=== PATIENT | female | born 1965 | race Caucasian/White ===

== ENCOUNTER 2017-06-29 16:35 | Inpatient (IN) | payer MEDICAID ==
[~2017-06-29] VITALS: Ht 182.9 cm; Wt 110.2 kg
[~2017-06-29 16:35] MED LIST: ACET-3068 PO; ACET-75; ALBU6.7H INH; AMLO5TAB69; ASPI-1265 PO; ATOR10TA87 PO; CARV-50 PO; ESOM40CA PO; FURO40TA4 PO; GABA-530 PO; HUM10VIA; LANTUS SQ; NIFE90TA44 PO; NITR0.4T51 SL; ONDA4TAB11 PO; PROM25TA14 PO; SIME80TA5 PO
[2017-06-29] MEDS ORDERED: normal saline 1000ML IV soln IVB ONE (16:50)
[2017-06-29] MEDS ORDERED: ondansetron/PF 4mg/2ml inj IV ONE (16:50)
[2017-06-29] MEDS ORDERED: acetaminophen 325mg tablet PO ONE (16:55)
[2017-06-29 18:03] LABS: BASOPHILS % (AUTO) 0.6 % (0-1); EOSINOPHILS # (AUTO) 0.2 X10'3 (0-0.9); EOSINOPHILS % (AUTO) 2.6 % (0-6); HEMATOCRIT 26.3 % (35.0-45.0); HEMOGLOBIN 8.5 g/dl (12.0-16.0); LYMPHOCYTES # (AUTO) 1.1 X10'3 (1.1-4.8); LYMPHOCYTES % (AUTO) 14.8 % (21-51); MEAN CORPUSCULAR HEMOGLOBIN 26.5 PG (27.0-31.0); MEAN CORPUSCULAR HGB CONC 32.4 % (33.0-36.5); MEAN CORPUSCULAR VOLUME 81.9 FL (78-98); MEAN PLATELET VOLUME 6.7 FL (7.4-10.4); MONOCYTES # (AUTO) 0.5 X10'3 (0-0.9); MONOCYTES % (AUTO) 6.8 % (2-12); NEUTROPHILS # (AUTO) 5.4 X10'3 (1.8-7.7); NEUTROPHILS % (AUTO) 75.2 % (42-75); PLATELET COUNT 529 X10'3 (140-440); RED BLOOD COUNT 3.21 X10'6 (4.20-5.60); RED CELL DISTRIBUTION WIDTH 15.7 % (11.5-14.5); WHITE BLOOD COUNT 7.2 X10'3 (4.5-11.0)
[2017-06-29 18:12] LABS: CLARITY,URINE TURBID (Clear); COLOR,URINE YELLOW (Yellow); GLUCOSE, URINE NEGATIVE (Neg); KETONES,URINE NEGATIVE (Neg); LEUKOCYTE ESTERASE ,URINE LARGE (Neg); NITRITES, URINE NEGATIVE (Neg); OCCULT BLOOD,URINE MODERATE (Neg); PROTEIN,URINE >=300 mg/dl (Neg); UA COLLECTION TYPE STRAIGHT CATH; UROBILINOGEN,URINE 0.2 E.U/dL (0.2-1.0)
[2017-06-29 18:22] LABS: ALANINE AMINOTRANSFERASE 13 U/L (12-78); ALBUMIN 1.4 G/DL (3.4-5.0); ALBUMIN/GLOBULIN RATIO 0.3 (1.1-1.5); ALKALINE PHOSPHATASE 98 IU/L (46-116); ANION GAP 15 (8-16); ASPARTATE AMINO TRANSFERASE 9 U/L (10-37); BILIRUBIN,TOTAL 0.3 MG/DL (0.1-1.0); BLOOD UREA NITROGEN 42 MG/DL (7-18); BUN/CREATININE RATIO 3.6 (6.6-38.0); CALCIUM 7.6 MG/DL (8.5-10.1); CHLORIDE 102 MMOL/L (99-107); CREATININE 11.54 MG/DL (0.40-0.90); GLUCOSE 179 MG/DL (70-104); LIPASE 50 U/L (73-393); POTASSIUM 3.2 MMOL/L (3.5-5.1); SODIUM 143 MMOL/L (135-145); TOTAL CARBON DIOXIDE 25.7 MMOL/L (24-32); TOTAL PROTEIN 5.6 G/DL (6.4-8.2); TROPONIN I 0.04 NG/ML (0.0-0.05); eGFR 3 ML/MIN
[2017-06-29 18:27] LABS: BACTERIA,URINE 3+ /HPF (Neg); MUCUS STRANDS NONE SEEN /LPF (Neg); SQUAMOUS EPITHELIAL CELL,UR FEW /LPF (FEW); WBC,URINE TNTC /HPF (0-4)
[2017-06-29] MEDS: levoFLOXACIN-Levaquin 500mg/D5 100 ML IV ONE ×2 (18:47→20:58)
[2017-06-29] MEDS ORDERED: atorvastatin 10mg tablet PO SCH (21:00)
[2017-06-30] VITALS: BP 140/77
[2017-06-30] MEDS: gabapentin 100mg capsule PO SCH ×2 (00:55→20:24)
[2017-06-30] MEDS ORDERED: DIFICID 200 MG PO SCH (01:25)
[2017-06-30] MEDS: aspirin 81mg tab.chew PO SCH ×2 (03:24→20:23)
[2017-06-30 05:20] LABS: BASOPHILS # (AUTO) 0.1 X10'3 (0-0.2); BASOPHILS % (AUTO) 0.8 % (0-1); EOSINOPHILS # (AUTO) 0.3 X10'3 (0-0.9); EOSINOPHILS % (AUTO) 3.6 % (0-6); HEMATOCRIT 25.6 % (35.0-45.0); HEMOGLOBIN 8.5 g/dl (12.0-16.0); LYMPHOCYTES # (AUTO) 0.6 X10'3 (1.1-4.8); LYMPHOCYTES % (AUTO) 8.1 % (21-51); MEAN CORPUSCULAR HEMOGLOBIN 27.2 PG (27.0-31.0); MEAN CORPUSCULAR HGB CONC 33.4 % (33.0-36.5); MEAN CORPUSCULAR VOLUME 81.6 FL (78-98); MEAN PLATELET VOLUME 6.7 FL (7.4-10.4); MONOCYTES # (AUTO) 0.5 X10'3 (0-0.9); MONOCYTES % (AUTO) 6.8 % (2-12); NEUTROPHILS # (AUTO) 6.1 X10'3 (1.8-7.7); NEUTROPHILS % (AUTO) 80.7 % (42-75); PLATELET COUNT 471 X10'3 (140-440); RED BLOOD COUNT 3.13 X10'6 (4.20-5.60); RED CELL DISTRIBUTION WIDTH 15.5 % (11.5-14.5); WHITE BLOOD COUNT 7.6 X10'3 (4.5-11.0)
[2017-06-30 05:42] LABS: ALANINE AMINOTRANSFERASE 13 U/L (12-78); ALBUMIN 1.3 G/DL (3.4-5.0); ALBUMIN/GLOBULIN RATIO 0.3 (1.1-1.5); ALKALINE PHOSPHATASE 93 IU/L (46-116); ANION GAP 15 (8-16); ASPARTATE AMINO TRANSFERASE 9 U/L (10-37); BILIRUBIN,TOTAL 0.3 MG/DL (0.1-1.0); BLOOD UREA NITROGEN 40 MG/DL (7-18); BUN/CREATININE RATIO 3.6 (6.6-38.0); CALCIUM 7.5 MG/DL (8.5-10.1); CHLORIDE 103 MMOL/L (99-107); CREATININE 11.18 MG/DL (0.40-0.90); GLUCOSE 220 MG/DL (70-104); MAGNESIUM 1.5 MG/DL (1.5-2.4); PHOSPHORUS 7.8 MG/DL (2.3-4.5); SODIUM 142 MMOL/L (135-145); TOTAL CARBON DIOXIDE 24.3 MMOL/L (24-32); TOTAL PROTEIN 5.3 G/DL (6.4-8.2); eGFR 4 ML/MIN
[2017-06-30 08:00] VITALS: BP 150/70
[2017-06-30] MEDS ORDERED: insulin NPH/REG insulin (NovoLIN 70/30) 10ml vial SQ SCH (08:00)
[2017-06-30] MEDS: insulin glargine (Lantus) pen - multi-dose SQ SCH ×2 (08:00→20:00)
[2017-06-30] MEDS: insulin NPH/REG insulin (NovoLIN 70/30) 10ml vial SQ SCH (08:00)
[2017-06-30] MEDS ORDERED: aspirin 81mg tab.chew PO SCH (08:00)
[2017-06-30 11:00] VITALS: BP 145/63
[2017-06-30] MEDS: lactobacillus rhamnosus 10,000 MMU CELLS/CAPSULE PO SCH ×2 (11:01→20:24)
[2017-06-30] MEDS: pantoprazole 40mg Tablet.DR PO SCH (11:01)
[2017-06-30] MEDS: furosemide 40mg tablet PO SCH ×2 (11:02→20:00)
[2017-06-30] MEDS: DIFICID 200 MG PO SCH ×2 (11:02→20:23)
[2017-06-30] MEDS: carVEDilol 12.5mg tablet PO SCH ×2 (11:03→20:25)
[2017-06-30] MEDS: atorvastatin 10mg tablet PO SCH (11:17)
[2017-06-30] MEDS: NIFEdipine XL 30mg tablet PO SCH (11:17)
[2017-06-30] MEDS: heparin, porcine 5000 units/ml vial SQ SCH ×2 (11:19→20:28)
[2017-06-30] MEDS: ondansetron/PF 4mg/2ml inj IV PRN ×2 (13:08→20:26)
[2017-06-30 18:00] VITALS: BP 142/70
[2017-06-30] MEDS: acetaminophen w/codeine (30MG) #3 tablet PO PRN (20:24)
[2017-07-01] VITALS: BP 141/69
[2017-07-01] MEDS: ondansetron/PF 4mg/2ml inj IV PRN ×3 (03:55→20:14)
[2017-07-01] MEDS: acetaminophen w/codeine (30MG) #3 tablet PO PRN ×3 (03:55→20:30)
[2017-07-01 05:06] LABS: BASOPHILS % (AUTO) 0.4 % (0-1); EOSINOPHILS # (AUTO) 0.2 X10'3 (0-0.9); EOSINOPHILS % (AUTO) 2.7 % (0-6); HEMATOCRIT 24.7 % (35.0-45.0); HEMOGLOBIN 8.1 g/dl (12.0-16.0); LYMPHOCYTES # (AUTO) 0.8 X10'3 (1.1-4.8); LYMPHOCYTES % (AUTO) 12.1 % (21-51); MEAN CORPUSCULAR HEMOGLOBIN 26.8 PG (27.0-31.0); MEAN CORPUSCULAR HGB CONC 32.7 % (33.0-36.5); MEAN CORPUSCULAR VOLUME 82.1 FL (78-98); MEAN PLATELET VOLUME 6.6 FL (7.4-10.4); MONOCYTES # (AUTO) 0.7 X10'3 (0-0.9); MONOCYTES % (AUTO) 9.9 % (2-12); NEUTROPHILS # (AUTO) 5.2 X10'3 (1.8-7.7); NEUTROPHILS % (AUTO) 74.9 % (42-75); PLATELET COUNT 401 X10'3 (140-440); RED BLOOD COUNT 3.01 X10'6 (4.20-5.60); RED CELL DISTRIBUTION WIDTH 15.6 % (11.5-14.5)
[2017-07-01 05:29] LABS: ALANINE AMINOTRANSFERASE 14 U/L (12-78); ALBUMIN 1.2 G/DL (3.4-5.0); ALBUMIN/GLOBULIN RATIO 0.3 (1.1-1.5); ALKALINE PHOSPHATASE 94 IU/L (46-116); ANION GAP 15 (8-16); ASPARTATE AMINO TRANSFERASE 11 U/L (10-37); BILIRUBIN,TOTAL 0.3 MG/DL (0.1-1.0); BLOOD UREA NITROGEN 36 MG/DL (7-18); BUN/CREATININE RATIO 3.5 (6.6-38.0); CALCIUM 7.5 MG/DL (8.5-10.1); CHLORIDE 101 MMOL/L (99-107); CREATININE 10.23 MG/DL (0.40-0.90); GLUCOSE 250 MG/DL (70-104); MAGNESIUM 1.5 MG/DL (1.5-2.4); PHOSPHORUS 7.1 MG/DL (2.3-4.5); SODIUM 141 MMOL/L (135-145); TOTAL PROTEIN 5.2 G/DL (6.4-8.2); eGFR 4 ML/MIN
[2017-07-01 05:41] LABS: POTASSIUM 2.7 MMOL/L (3.5-5.1)
[2017-07-01 07:47] VITALS: BP 143/63
[2017-07-01] MEDS: insulin glargine (Lantus) pen - multi-dose SQ SCH ×2 (08:00→20:00)
[2017-07-01] MEDS: insulin NPH/REG insulin (NovoLIN 70/30) 10ml vial SQ SCH (08:00)
[2017-07-01] MEDS ORDERED: levoFLOXACIN-Levaquin 250mg/D5 50 ML IV SCH (08:00)
[2017-07-01] MEDS: furosemide 40mg tablet PO SCH ×2 (08:31→20:00)
[2017-07-01] MEDS: pantoprazole 40mg Tablet.DR PO SCH (08:31)
[2017-07-01] MEDS: potassium Cl 20 mEq SR tablet PO SCH ×2 (08:31→20:12)
[2017-07-01] MEDS: lactobacillus rhamnosus 10,000 MMU CELLS/CAPSULE PO SCH ×2 (08:31→20:19)
[2017-07-01] MEDS: atorvastatin 10mg tablet PO SCH (08:31)
[2017-07-01] MEDS: carVEDilol 12.5mg tablet PO SCH ×2 (08:31→20:00)
[2017-07-01] MEDS: heparin, porcine 5000 units/ml vial SQ SCH ×2 (08:32→20:21)
[2017-07-01] MEDS: NIFEdipine XL 30mg tablet PO SCH (08:38)
[2017-07-01] MEDS: DIFICID 200 MG PO SCH ×2 (08:38→20:19)
[2017-07-01 13:28] VITALS: BP 117/59
[2017-07-01 18:00] VITALS: BP 100/52
[2017-07-01] MEDS: aspirin 81mg tab.chew PO SCH (20:18)
[2017-07-01] MEDS: gabapentin 100mg capsule PO SCH (20:19)
[2017-07-02] VITALS: BP 120/64
[2017-07-02] MEDS: albuterol 2.5 MG/3 ML nebule NEB PRN (02:17)
[2017-07-02] MEDS: ondansetron/PF 4mg/2ml inj IV PRN ×3 (04:20→20:56)
[2017-07-02 04:44] LABS: BASOPHILS % (AUTO) 0.6 % (0-1); EOSINOPHILS # (AUTO) 0.2 X10'3 (0-0.9); EOSINOPHILS % (AUTO) 3.1 % (0-6); HEMATOCRIT 25.6 % (35.0-45.0); HEMOGLOBIN 8.5 g/dl (12.0-16.0); LYMPHOCYTES # (AUTO) 0.9 X10'3 (1.1-4.8); LYMPHOCYTES % (AUTO) 14.8 % (21-51); MEAN CORPUSCULAR HEMOGLOBIN 26.7 PG (27.0-31.0); MEAN CORPUSCULAR HGB CONC 33.1 % (33.0-36.5); MEAN CORPUSCULAR VOLUME 80.6 FL (78-98); MEAN PLATELET VOLUME 6.7 FL (7.4-10.4); MONOCYTES # (AUTO) 0.6 X10'3 (0-0.9); MONOCYTES % (AUTO) 9.1 % (2-12); NEUTROPHILS # (AUTO) 4.5 X10'3 (1.8-7.7); NEUTROPHILS % (AUTO) 72.4 % (42-75); PLATELET COUNT 397 X10'3 (140-440); RED BLOOD COUNT 3.18 X10'6 (4.20-5.60); RED CELL DISTRIBUTION WIDTH 14.9 % (11.5-14.5); WHITE BLOOD COUNT 6.2 X10'3 (4.5-11.0)
[2017-07-02 05:14] LABS: ALANINE AMINOTRANSFERASE 14 U/L (12-78); ALBUMIN 1.3 G/DL (3.4-5.0); ALBUMIN/GLOBULIN RATIO 0.3 (1.1-1.5); ALKALINE PHOSPHATASE 95 IU/L (46-116); ANION GAP 13 (8-16); ASPARTATE AMINO TRANSFERASE 10 U/L (10-37); BILIRUBIN,TOTAL 0.2 MG/DL (0.1-1.0); BLOOD UREA NITROGEN 36 MG/DL (7-18); BUN/CREATININE RATIO 3.8 (6.6-38.0); CALCIUM 7.7 MG/DL (8.5-10.1); CHLORIDE 101 MMOL/L (99-107); CREATININE 9.55 MG/DL (0.40-0.90); GLUCOSE 281 MG/DL (70-104); MAGNESIUM 1.4 MG/DL (1.5-2.4); PHOSPHORUS 6.8 MG/DL (2.3-4.5); POTASSIUM 3.3 MMOL/L (3.5-5.1); SODIUM 139 MMOL/L (135-145); TOTAL PROTEIN 5.4 G/DL (6.4-8.2); eGFR 4 ML/MIN
[2017-07-02] MEDS: pantoprazole 40mg Tablet.DR PO SCH (07:30)
[2017-07-02] MEDS: insulin glargine (Lantus) pen - multi-dose SQ SCH ×2 (08:00→20:00)
[2017-07-02] MEDS: furosemide 40mg tablet PO SCH ×2 (08:00→20:00)
[2017-07-02] MEDS: insulin NPH/REG insulin (NovoLIN 70/30) 10ml vial SQ SCH (08:54)
[2017-07-02] MEDS: heparin, porcine 5000 units/ml vial SQ SCH ×2 (08:54→20:54)
[2017-07-02 09:04] VITALS: BP 131/60
[2017-07-02] MEDS: lactobacillus rhamnosus 10,000 MMU CELLS/CAPSULE PO SCH ×2 (11:31→20:53)
[2017-07-02] MEDS: carVEDilol 12.5mg tablet PO SCH ×2 (11:31→20:52)
[2017-07-02] MEDS: DIFICID 200 MG PO SCH ×2 (11:31→20:54)
[2017-07-02] MEDS: atorvastatin 10mg tablet PO SCH (11:32)
[2017-07-02] MEDS: NIFEdipine XL 30mg tablet PO SCH (11:32)
[2017-07-02 12:04] VITALS: BP 154/75
[2017-07-02 18:00] VITALS: BP 112/55
[2017-07-02 18:18] LABS: LYMPHOCYTES,BODY FLUID 40 %; MONOCYTES,BODY FLUID 41 %; NEUTROPHILS,BODY FLUID 19 %
[2017-07-02 18:33] LABS: BF MESOTHELIAL CELLS FEW; BF RBC COUNT 5 /CU MM; BF WBC COUNT 29 /CU MM (0-1000); BFAPPEAR CLEAR; BFCOLOR COLORLESS; BFVOLUME 48 ML
[2017-07-02] MEDS: gabapentin 100mg capsule PO SCH (20:53)
[2017-07-02] MEDS: aspirin 81mg tab.chew PO SCH (20:56)
[2017-07-02] MEDS: acetaminophen w/codeine (30MG) #3 tablet PO PRN (20:57)
[2017-07-03] VITALS: BP 147/54
[2017-07-03 06:45] LABS: BASOPHILS % (AUTO) 0.5 % (0-1); EOSINOPHILS # (AUTO) 0.2 X10'3 (0-0.9); EOSINOPHILS % (AUTO) 4.1 % (0-6); HEMATOCRIT 28.5 % (35.0-45.0); HEMOGLOBIN 9.5 g/dl (12.0-16.0); LYMPHOCYTES # (AUTO) 0.8 X10'3 (1.1-4.8); LYMPHOCYTES % (AUTO) 15.4 % (21-51); MEAN CORPUSCULAR HEMOGLOBIN 26.8 PG (27.0-31.0); MEAN CORPUSCULAR HGB CONC 33.2 % (33.0-36.5); MEAN CORPUSCULAR VOLUME 80.7 FL (78-98); MEAN PLATELET VOLUME 6.8 FL (7.4-10.4); MONOCYTES # (AUTO) 0.4 X10'3 (0-0.9); MONOCYTES % (AUTO) 8.3 % (2-12); NEUTROPHILS # (AUTO) 3.8 X10'3 (1.8-7.7); NEUTROPHILS % (AUTO) 71.7 % (42-75); PLATELET COUNT 385 X10'3 (140-440); RED BLOOD COUNT 3.54 X10'6 (4.20-5.60); RED CELL DISTRIBUTION WIDTH 15.3 % (11.5-14.5); WHITE BLOOD COUNT 5.3 X10'3 (4.5-11.0)
[2017-07-03 07:00] VITALS: BP 145/76
[2017-07-03 07:01] LABS: ALANINE AMINOTRANSFERASE 18 U/L (12-78); ALBUMIN 1.3 G/DL (3.4-5.0); ALBUMIN/GLOBULIN RATIO 0.3 (1.1-1.5); ALKALINE PHOSPHATASE 216 IU/L (46-116); ANION GAP 12 (8-16); ASPARTATE AMINO TRANSFERASE 17 U/L (10-37); BILIRUBIN,TOTAL 0.2 MG/DL (0.1-1.0); BLOOD UREA NITROGEN 36 MG/DL (7-18); CALCIUM 8.3 MG/DL (8.5-10.1); CHLORIDE 100 MMOL/L (99-107); CREATININE 8.99 MG/DL (0.40-0.90); GLUCOSE 196 MG/DL (70-104); MAGNESIUM 1.5 MG/DL (1.5-2.4); POTASSIUM 3.3 MMOL/L (3.5-5.1); SODIUM 138 MMOL/L (135-145); TOTAL CARBON DIOXIDE 26.4 MMOL/L (24-32); TOTAL PROTEIN 5.8 G/DL (6.4-8.2); eGFR 5 ML/MIN
[2017-07-03] MEDS: furosemide 40mg tablet PO SCH ×2 (08:00→19:53)
[2017-07-03] MEDS: insulin NPH/REG insulin (NovoLIN 70/30) 10ml vial SQ SCH (08:00)
[2017-07-03] MEDS: insulin glargine (Lantus) pen - multi-dose SQ SCH ×2 (08:00→20:00)
[2017-07-03] MEDS: atorvastatin 10mg tablet PO SCH (08:00)
[2017-07-03] MEDS: carVEDilol 12.5mg tablet PO SCH ×2 (08:00→19:51)
[2017-07-03] MEDS: ondansetron/PF 4mg/2ml inj IV PRN ×2 (09:33→18:00)
[2017-07-03] MEDS: NIFEdipine XL 30mg tablet PO SCH (09:34)
[2017-07-03] MEDS: DIFICID 200 MG PO SCH ×2 (09:37→19:51)
[2017-07-03] MEDS: heparin, porcine 5000 units/ml vial SQ SCH ×2 (09:37→19:51)
[2017-07-03] MEDS: lactobacillus rhamnosus 10,000 MMU CELLS/CAPSULE PO SCH ×2 (09:38→19:51)
[2017-07-03] MEDS: pantoprazole 40mg Tablet.DR PO SCH (09:38)
[2017-07-03 11:00] VITALS: BP 159/70
[2017-07-03] MEDS: acetaminophen w/codeine (30MG) #3 tablet PO PRN (12:45)
[2017-07-03 20:00] VITALS: BP 110/48
[2017-07-03] MEDS: gabapentin 100mg capsule PO SCH (21:35)
[2017-07-03] MEDS: aspirin 81mg tab.chew PO SCH (21:35)
[2017-07-04] VITALS: BP 141/63
[2017-07-04] MEDS: ondansetron/PF 4mg/2ml inj IV PRN ×2 (02:51→09:11)
[2017-07-04] MEDS: acetaminophen w/codeine (30MG) #3 tablet PO PRN (03:19)
[2017-07-04 06:05] LABS: BASOPHILS % (AUTO) 0.4 % (0-1); EOSINOPHILS # (AUTO) 0.2 X10'3 (0-0.9); EOSINOPHILS % (AUTO) 3.7 % (0-6); HEMATOCRIT 24.6 % (35.0-45.0); HEMOGLOBIN 8.1 g/dl (12.0-16.0); LYMPHOCYTES # (AUTO) 0.7 X10'3 (1.1-4.8); LYMPHOCYTES % (AUTO) 12.9 % (21-51); MEAN CORPUSCULAR HEMOGLOBIN 26.6 PG (27.0-31.0); MEAN CORPUSCULAR VOLUME 80.5 FL (78-98); MEAN PLATELET VOLUME 6.9 FL (7.4-10.4); MONOCYTES # (AUTO) 0.5 X10'3 (0-0.9); MONOCYTES % (AUTO) 10.2 % (2-12); NEUTROPHILS # (AUTO) 3.9 X10'3 (1.8-7.7); NEUTROPHILS % (AUTO) 72.8 % (42-75); PLATELET COUNT 335 X10'3 (140-440); RED BLOOD COUNT 3.06 X10'6 (4.20-5.60); RED CELL DISTRIBUTION WIDTH 14.9 % (11.5-14.5); WHITE BLOOD COUNT 5.4 X10'3 (4.5-11.0)
[2017-07-04 06:24] LABS: ALANINE AMINOTRANSFERASE 14 U/L (12-78); ALBUMIN 1.2 G/DL (3.4-5.0); ALBUMIN/GLOBULIN RATIO 0.3 (1.1-1.5); ALKALINE PHOSPHATASE 179 IU/L (46-116); ANION GAP 11 (8-16); ASPARTATE AMINO TRANSFERASE 11 U/L (10-37); BILIRUBIN,TOTAL 0.2 MG/DL (0.1-1.0); BLOOD UREA NITROGEN 33 MG/DL (7-18); BUN/CREATININE RATIO 3.8 (6.6-38.0); CHLORIDE 100 MMOL/L (99-107); CREATININE 8.79 MG/DL (0.40-0.90); GLUCOSE 192 MG/DL (70-104); MAGNESIUM 1.4 MG/DL (1.5-2.4); PHOSPHORUS 6.7 MG/DL (2.3-4.5); POTASSIUM 3.2 MMOL/L (3.5-5.1); SODIUM 138 MMOL/L (135-145); TOTAL CARBON DIOXIDE 26.7 MMOL/L (24-32); TOTAL PROTEIN 5.1 G/DL (6.4-8.2); eGFR 5 ML/MIN
[2017-07-04 07:30] VITALS: BP 136/64
[2017-07-04] MEDS: lactobacillus rhamnosus 10,000 MMU CELLS/CAPSULE PO SCH ×2 (08:00→20:04)
[2017-07-04] MEDS: insulin glargine (Lantus) pen - multi-dose SQ SCH ×2 (08:00→20:00)
[2017-07-04] MEDS: insulin NPH/REG insulin (NovoLIN 70/30) 10ml vial SQ SCH (08:00)
[2017-07-04] MEDS: furosemide 40mg tablet PO SCH ×2 (08:00→20:00)
[2017-07-04] MEDS: heparin, porcine 5000 units/ml vial SQ SCH ×2 (09:11→20:04)
[2017-07-04] MEDS: carVEDilol 12.5mg tablet PO SCH ×2 (09:12→20:00)
[2017-07-04] MEDS: pantoprazole 40mg Tablet.DR PO SCH (09:12)
[2017-07-04] MEDS: NIFEdipine XL 30mg tablet PO SCH (09:12)
[2017-07-04] MEDS: DIFICID 200 MG PO SCH ×2 (09:12→20:05)
[2017-07-04] MEDS: atorvastatin 10mg tablet PO SCH (09:12)
[2017-07-04 20:00] VITALS: BP 98/51
[2017-07-04] MEDS: gabapentin 100mg capsule PO SCH (21:30)
[2017-07-04] MEDS: aspirin 81mg tab.chew PO SCH (21:30)
[2017-07-05] VITALS: BP 130/76
[2017-07-05] MEDS: acetaminophen w/codeine (30MG) #3 tablet PO PRN (04:01)
[2017-07-05 06:00] VITALS: BP 136/76
[2017-07-05] MEDS: pantoprazole 40mg Tablet.DR PO SCH (07:30)
[2017-07-05] MEDS: furosemide 40mg tablet PO SCH ×2 (08:00→20:00)
[2017-07-05] MEDS: lactobacillus rhamnosus 10,000 MMU CELLS/CAPSULE PO SCH ×2 (08:00→20:21)
[2017-07-05] MEDS: insulin NPH/REG insulin (NovoLIN 70/30) 10ml vial SQ SCH (08:00)
[2017-07-05] MEDS: heparin, porcine 5000 units/ml vial SQ SCH ×2 (08:00→20:22)
[2017-07-05] MEDS: insulin glargine (Lantus) pen - multi-dose SQ SCH ×2 (08:00→20:00)
[2017-07-05] MEDS: atorvastatin 10mg tablet PO SCH (09:01)
[2017-07-05] MEDS: NIFEdipine XL 30mg tablet PO SCH (09:01)
[2017-07-05] MEDS: DIFICID 200 MG PO SCH ×2 (09:01→20:20)
[2017-07-05] MEDS: carVEDilol 12.5mg tablet PO SCH ×2 (09:01→20:21)
[2017-07-05 11:00] VITALS: BP 132/64
[2017-07-05] MEDS ORDERED: ondansetron 4mg rapidly disintigrating tab PO ONE (14:00)
[2017-07-05 14:38] LABS: BASOPHILS % (AUTO) 0.1 % (0-1); EOSINOPHILS # (AUTO) 0.2 X10'3 (0-0.9); HEMATOCRIT 24.9 % (35.0-45.0); HEMOGLOBIN 8.1 g/dl (12.0-16.0); LYMPHOCYTES # (AUTO) 0.6 X10'3 (1.1-4.8); LYMPHOCYTES % (AUTO) 11.8 % (21-51); MEAN CORPUSCULAR HEMOGLOBIN 26.3 PG (27.0-31.0); MEAN CORPUSCULAR HGB CONC 32.7 % (33.0-36.5); MEAN CORPUSCULAR VOLUME 80.5 FL (78-98); MEAN PLATELET VOLUME 7.3 FL (7.4-10.4); MONOCYTES # (AUTO) 0.5 X10'3 (0-0.9); MONOCYTES % (AUTO) 9.3 % (2-12); NEUTROPHILS # (AUTO) 3.9 X10'3 (1.8-7.7); NEUTROPHILS % (AUTO) 75.8 % (42-75); PLATELET COUNT 303 X10'3 (140-440); RED BLOOD COUNT 3.09 X10'6 (4.20-5.60); RED CELL DISTRIBUTION WIDTH 15.4 % (11.5-14.5); WHITE BLOOD COUNT 5.1 X10'3 (4.5-11.0)
[2017-07-05 14:52] LABS: ALANINE AMINOTRANSFERASE 13 U/L (12-78); ALBUMIN 1.2 G/DL (3.4-5.0); ALBUMIN/GLOBULIN RATIO 0.3 (1.1-1.5); ALKALINE PHOSPHATASE 160 IU/L (46-116); ANION GAP 11 (8-16); ASPARTATE AMINO TRANSFERASE 11 U/L (10-37); BILIRUBIN,TOTAL 0.2 MG/DL (0.1-1.0); BLOOD UREA NITROGEN 35 MG/DL (7-18); CALCIUM 7.7 MG/DL (8.5-10.1); CHLORIDE 98 MMOL/L (99-107); GLUCOSE 181 MG/DL (70-104); MAGNESIUM 1.5 MG/DL (1.5-2.4); POTASSIUM 3.2 MMOL/L (3.5-5.1); SODIUM 135 MMOL/L (135-145); TOTAL PROTEIN 5.1 G/DL (6.4-8.2); eGFR 5 ML/MIN
[2017-07-05] MEDS: ondansetron 4mg rapidly disintigrating tab PO PRN (17:27)
[2017-07-05 17:28] LABS: PHOSPHORUS 6.9 MG/DL (2.3-4.5)
[2017-07-05 20:00] VITALS: BP 129/55
[2017-07-05] MEDS: gabapentin 100mg capsule PO SCH (20:20)
[2017-07-05] MEDS: aspirin 81mg tab.chew PO SCH (20:21)
[2017-07-06] VITALS: BP 131/59
[2017-07-06] MEDS: acetaminophen w/codeine (30MG) #3 tablet PO PRN ×2 (05:44→20:52)
[2017-07-06] MEDS: ondansetron 4mg rapidly disintigrating tab PO PRN (05:44)
[2017-07-06] MEDS: lactobacillus rhamnosus 10,000 MMU CELLS/CAPSULE PO SCH ×2 (07:54→20:01)
[2017-07-06] MEDS: NIFEdipine XL 30mg tablet PO SCH (07:54)
[2017-07-06] MEDS: atorvastatin 10mg tablet PO SCH (07:54)
[2017-07-06] MEDS: pantoprazole 40mg Tablet.DR PO SCH (07:55)
[2017-07-06] MEDS: carVEDilol 12.5mg tablet PO SCH ×2 (07:55→20:01)
[2017-07-06] MEDS: heparin, porcine 5000 units/ml vial SQ SCH ×2 (07:57→20:01)
[2017-07-06] MEDS: insulin NPH/REG insulin (NovoLIN 70/30) 10ml vial SQ SCH (07:58)
[2017-07-06] MEDS: furosemide 40mg tablet PO SCH ×2 (07:58→20:02)
[2017-07-06] MEDS: insulin glargine (Lantus) pen - multi-dose SQ SCH ×2 (07:58→20:00)
[2017-07-06 08:00] VITALS: BP 153/76
[2017-07-06 11:00] VITALS: BP 103/44
[2017-07-06] MEDS: albuterol 2.5 MG/3 ML nebule NEB PRN (11:25)
[2017-07-06] MEDS ORDERED: potassium Cl 20 mEq SR tablet PO ONE (13:25)
[2017-07-06 20:00] VITALS: BP 127/62
[2017-07-06] MEDS: vancomcyin 250mg capsules PO SCH (20:02)
[2017-07-06] MEDS: aspirin 81mg tab.chew PO SCH (20:51)
[2017-07-06] MEDS: gabapentin 100mg capsule PO SCH (20:52)
[2017-07-07] VITALS: BP 114/53
[2017-07-07] MEDS: vancomcyin 250mg capsules PO SCH ×4 (02:19→20:53)
[2017-07-07] MEDS: furosemide 40mg tablet PO SCH ×2 (07:51→20:54)
[2017-07-07] MEDS: NIFEdipine XL 30mg tablet PO SCH (07:51)
[2017-07-07] MEDS: lactobacillus rhamnosus 10,000 MMU CELLS/CAPSULE PO SCH ×2 (07:51→20:53)
[2017-07-07] MEDS: pantoprazole 40mg Tablet.DR PO SCH (07:51)
[2017-07-07] MEDS: atorvastatin 10mg tablet PO SCH (07:51)
[2017-07-07] MEDS: carVEDilol 12.5mg tablet PO SCH ×2 (07:51→20:54)
[2017-07-07] MEDS: heparin, porcine 5000 units/ml vial SQ SCH ×2 (07:52→20:52)
[2017-07-07] MEDS: ondansetron 4mg rapidly disintigrating tab PO PRN (07:56)
[2017-07-07 08:00] VITALS: BP 145/68
[2017-07-07] MEDS: insulin NPH/REG insulin (NovoLIN 70/30) 10ml vial SQ SCH (08:00)
[2017-07-07] MEDS: insulin glargine (Lantus) pen - multi-dose SQ SCH ×2 (08:00→20:00)
[2017-07-07] MEDS: acetaminophen w/codeine (30MG) #3 tablet PO PRN (10:33)
[2017-07-07 12:19] VITALS: BP 115/52
[2017-07-07 20:00] VITALS: BP 122/78
[2017-07-07] MEDS: gabapentin 100mg capsule PO SCH (20:53)
[2017-07-07] MEDS: aspirin 81mg tab.chew PO SCH (20:54)
[2017-07-07 23:00] VITALS: BP 134/76
[2017-07-08] MEDS: ondansetron 4mg rapidly disintigrating tab PO PRN ×3 (01:30→20:24)
[2017-07-08] MEDS: acetaminophen w/codeine (30MG) #3 tablet PO PRN ×3 (01:30→20:26)
[2017-07-08] MEDS: vancomcyin 250mg capsules PO SCH ×4 (01:30→20:25)
[2017-07-08] MEDS: atorvastatin 10mg tablet PO SCH (07:19)
[2017-07-08] MEDS: pantoprazole 40mg Tablet.DR PO SCH (07:19)
[2017-07-08] MEDS: carVEDilol 12.5mg tablet PO SCH ×2 (07:19→20:26)
[2017-07-08] MEDS: lactobacillus rhamnosus 10,000 MMU CELLS/CAPSULE PO SCH ×2 (07:19→20:25)
[2017-07-08] MEDS: furosemide 40mg tablet PO SCH ×2 (07:19→20:25)
[2017-07-08] MEDS: heparin, porcine 5000 units/ml vial SQ SCH ×2 (07:20→20:00)
[2017-07-08] MEDS: NIFEdipine XL 30mg tablet PO SCH (07:20)
[2017-07-08 07:36] VITALS: BP 138/71
[2017-07-08] MEDS: insulin glargine (Lantus) pen - multi-dose SQ SCH ×2 (08:00→20:00)
[2017-07-08] MEDS: insulin NPH/REG insulin (NovoLIN 70/30) 10ml vial SQ SCH (08:00)
[2017-07-08 12:06] VITALS: BP 103/50
[2017-07-08] MEDS ORDERED: LIDOcaine 1% (10mg/ml) 2ml vial SQ ONE (19:45)
[2017-07-08] MEDS: gabapentin 100mg capsule PO SCH (20:26)
[2017-07-08] MEDS: aspirin 81mg tab.chew PO SCH (20:26)
[2017-07-09] MEDS: vancomcyin 250mg capsules PO SCH ×5 (01:27→20:42)
[2017-07-09] MEDS: ondansetron 4mg rapidly disintigrating tab PO PRN ×2 (02:38→15:31)
[2017-07-09] MEDS: acetaminophen w/codeine (30MG) #3 tablet PO PRN ×2 (02:39→15:31)
[2017-07-09 06:24] LABS: ALANINE AMINOTRANSFERASE 12 U/L (12-78); ALBUMIN 1.3 G/DL (3.4-5.0); ALBUMIN/GLOBULIN RATIO 0.3 (1.1-1.5); ALKALINE PHOSPHATASE 126 IU/L (46-116); ANION GAP 12 (8-16); ASPARTATE AMINO TRANSFERASE 11 U/L (10-37); BILIRUBIN,TOTAL 0.2 MG/DL (0.1-1.0); BLOOD UREA NITROGEN 39 MG/DL (7-18); BUN/CREATININE RATIO 4.4 (6.6-38.0); CALCIUM 8.1 MG/DL (8.5-10.1); CHLORIDE 98 MMOL/L (99-107); CREATININE 8.88 MG/DL (0.40-0.90); GLUCOSE 140 MG/DL (70-104); POTASSIUM 3.8 MMOL/L (3.5-5.1); SODIUM 135 MMOL/L (135-145); TOTAL CARBON DIOXIDE 25.3 MMOL/L (24-32); TOTAL PROTEIN 5.1 G/DL (6.4-8.2); eGFR 5 ML/MIN
[2017-07-09] MEDS: atorvastatin 10mg tablet PO SCH (07:40)
[2017-07-09] MEDS: NIFEdipine XL 30mg tablet PO SCH (07:40)
[2017-07-09] MEDS: pantoprazole 40mg Tablet.DR PO SCH (07:40)
[2017-07-09] MEDS: furosemide 40mg tablet PO SCH ×2 (07:40→20:34)
[2017-07-09] MEDS: lactobacillus rhamnosus 10,000 MMU CELLS/CAPSULE PO SCH ×2 (07:40→20:33)
[2017-07-09] MEDS: carVEDilol 12.5mg tablet PO SCH ×2 (07:40→20:34)
[2017-07-09 08:00] VITALS: BP 143/68
[2017-07-09] MEDS ORDERED: LIDOcaine 1% (10mg/ml) 2ml vial SQ ONE (08:00)
[2017-07-09] MEDS ORDERED: heparin 1,000 units/ml 10ml inj IV ONE (08:00)
[2017-07-09] MEDS: insulin glargine (Lantus) pen - multi-dose SQ SCH ×2 (08:00→20:00)
[2017-07-09] MEDS: heparin, porcine 5000 units/ml vial SQ SCH ×2 (08:00→20:35)
[2017-07-09] MEDS: insulin NPH/REG insulin (NovoLIN 70/30) 10ml vial SQ SCH (08:00)
[2017-07-09 11:00] VITALS: BP 121/57
[2017-07-09 20:00] VITALS: BP 124/56
[2017-07-09] MEDS: aspirin 81mg tab.chew PO SCH (20:34)
[2017-07-09] MEDS: gabapentin 100mg capsule PO SCH (20:34)
[2017-07-10] VITALS: BP 140/86
[2017-07-10] MEDS: ondansetron 4mg rapidly disintigrating tab PO PRN ×2 (02:20→08:20)
[2017-07-10] MEDS: acetaminophen w/codeine (30MG) #3 tablet PO PRN ×2 (02:20→13:25)
[2017-07-10] MEDS: albuterol 2.5 MG/3 ML nebule NEB PRN ×2 (03:48→21:21)
[2017-07-10 07:00] VITALS: BP 142/68
[2017-07-10] MEDS: insulin NPH/REG insulin (NovoLIN 70/30) 10ml vial SQ SCH (07:50)
[2017-07-10] MEDS: insulin glargine (Lantus) pen - multi-dose SQ SCH ×2 (07:50→20:00)
[2017-07-10] MEDS: lactobacillus rhamnosus 10,000 MMU CELLS/CAPSULE PO SCH ×2 (07:53→19:26)
[2017-07-10] MEDS: furosemide 40mg tablet PO SCH ×2 (07:53→19:26)
[2017-07-10] MEDS: NIFEdipine XL 30mg tablet PO SCH (07:53)
[2017-07-10] MEDS: pantoprazole 40mg Tablet.DR PO SCH (07:53)
[2017-07-10] MEDS: atorvastatin 10mg tablet PO SCH (07:54)
[2017-07-10] MEDS: carVEDilol 12.5mg tablet PO SCH ×2 (07:54→19:26)
[2017-07-10] MEDS: vancomcyin 250mg capsules PO SCH ×3 (07:55→19:26)
[2017-07-10] MEDS: heparin, porcine 5000 units/ml vial SQ SCH ×2 (07:56→19:27)
[2017-07-10 11:00] VITALS: BP 132/62
[2017-07-10 13:27] LABS: HBSAG SCREEN Negative (Negative)
[2017-07-10 20:00] VITALS: BP 122/64
[2017-07-10] MEDS: aspirin 81mg tab.chew PO SCH (21:09)
[2017-07-10] MEDS: gabapentin 100mg capsule PO SCH (21:09)
[2017-07-11] VITALS: BP 121/61
[2017-07-11] MEDS: vancomcyin 250mg capsules PO SCH ×4 (01:11→19:45)
[2017-07-11] MEDS: acetaminophen w/codeine (30MG) #3 tablet PO PRN ×3 (01:29→22:24)
[2017-07-11] MEDS: ondansetron 4mg rapidly disintigrating tab PO PRN ×3 (01:30→22:24)
[2017-07-11 07:00] VITALS: BP 124/59
[2017-07-11] MEDS: insulin NPH/REG insulin (NovoLIN 70/30) 10ml vial SQ SCH (07:24)
[2017-07-11] MEDS: insulin glargine (Lantus) pen - multi-dose SQ SCH ×2 (07:24→22:18)
[2017-07-11] MEDS: lactobacillus rhamnosus 10,000 MMU CELLS/CAPSULE PO SCH ×2 (07:47→22:14)
[2017-07-11] MEDS: atorvastatin 10mg tablet PO SCH (07:48)
[2017-07-11] MEDS: pantoprazole 40mg Tablet.DR PO SCH (07:48)
[2017-07-11] MEDS: carVEDilol 12.5mg tablet PO SCH ×2 (07:48→22:14)
[2017-07-11] MEDS: heparin, porcine 5000 units/ml vial SQ SCH ×2 (07:49→22:16)
[2017-07-11] MEDS: NIFEdipine XL 30mg tablet PO SCH (07:49)
[2017-07-11] MEDS: furosemide 40mg tablet PO SCH ×3 (07:51→22:25)
[2017-07-11] MEDS ORDERED: heparin 1,000 units/ml 10ml inj IV ONE (08:00)
[2017-07-11] MEDS ORDERED: LIDOcaine 1% (10mg/ml) 2ml vial SQ ONE (08:00)
[2017-07-11 12:00] VITALS: BP 139/53
[2017-07-11 20:00] VITALS: BP 150/85
[2017-07-11] MEDS: albuterol 2.5 MG/3 ML nebule NEB PRN (20:57)
[2017-07-11] MEDS: gabapentin 100mg capsule PO SCH (22:14)
[2017-07-11] MEDS: aspirin 81mg tab.chew PO SCH (22:17)
[2017-07-12] VITALS (8 sets, daily range): BP systolic 104–145; BP diastolic 55–66
[2017-07-12] MEDS: vancomcyin 250mg capsules PO SCH ×4 (02:10→20:00)
[2017-07-12] MEDS: insulin glargine (Lantus) pen - multi-dose SQ SCH ×2 (07:21→20:00)
[2017-07-12] MEDS: insulin NPH/REG insulin (NovoLIN 70/30) 10ml vial SQ SCH (07:21)
[2017-07-12] MEDS: pantoprazole 40mg Tablet.DR PO SCH (07:30)
[2017-07-12] MEDS: furosemide 40mg tablet PO SCH ×2 (08:00→20:00)
[2017-07-12] MEDS: atorvastatin 10mg tablet PO SCH (08:00)
[2017-07-12] MEDS: heparin, porcine 5000 units/ml vial SQ SCH ×2 (08:00→21:08)
[2017-07-12] MEDS: ondansetron 4mg rapidly disintigrating tab PO PRN (08:56)
[2017-07-12] MEDS: carVEDilol 12.5mg tablet PO SCH ×2 (08:56→21:08)
[2017-07-12] MEDS: lactobacillus rhamnosus 10,000 MMU CELLS/CAPSULE PO SCH ×2 (08:56→21:08)
[2017-07-12] MEDS: NIFEdipine XL 30mg tablet PO SCH (08:57)
[2017-07-12] MEDS: acetaminophen w/codeine (30MG) #3 tablet PO PRN (08:57)
[2017-07-12] MEDS ORDERED: iohexol 300mg/ml 100ml inj. ONE (12:45)
[2017-07-12] MEDS ORDERED: heparin 1,000 UNITS/NS 500ml 500 ML ONE (12:45)
[2017-07-12] MEDS ORDERED: LIDOcaine 1%/PF (10mg/ml) 5ml vial ONE (12:45)
[2017-07-12] MEDS ORDERED: midazolam 2 mg/2 ml injection ONE (13:37)
[2017-07-12] MEDS ORDERED: midazolam 2 mg/2 ml injection IV PRN (14:30)
[2017-07-12] MEDS ORDERED: LIDOcaine 1%/PF (10mg/ml) 5ml vial SQ ONE (14:30)
[2017-07-12] MEDS: diphenhydrAMINE 25mg capsule PO SCH (21:00)
[2017-07-12] MEDS: gabapentin 100mg capsule PO SCH (21:08)
[2017-07-12] MEDS: aspirin 81mg tab.chew PO SCH (21:08)
[2017-07-12] MEDS: albuterol 2.5 MG/3 ML nebule NEB PRN (22:02)
[2017-07-13] VITALS: BP 131/59
[2017-07-13] MEDS: vancomcyin 250mg capsules PO SCH ×4 (01:49→20:54)
[2017-07-13] MEDS: acetaminophen w/codeine (30MG) #3 tablet PO PRN ×3 (01:49→18:58)
[2017-07-13] MEDS: ondansetron 4mg rapidly disintigrating tab PO PRN ×3 (01:49→18:59)
[2017-07-13 05:09] LABS: BASOPHILS % (AUTO) 0.6 % (0-1); EOSINOPHILS # (AUTO) 0.2 X10'3 (0-0.9); EOSINOPHILS % (AUTO) 3.1 % (0-6); HEMATOCRIT 23.5 % (35.0-45.0); HEMOGLOBIN 7.7 g/dl (12.0-16.0); LYMPHOCYTES # (AUTO) 0.8 X10'3 (1.1-4.8); LYMPHOCYTES % (AUTO) 13.8 % (21-51); MEAN CORPUSCULAR HEMOGLOBIN 26.3 PG (27.0-31.0); MEAN CORPUSCULAR HGB CONC 32.6 % (33.0-36.5); MEAN CORPUSCULAR VOLUME 80.5 FL (78-98); MEAN PLATELET VOLUME 7.4 FL (7.4-10.4); MONOCYTES # (AUTO) 0.6 X10'3 (0-0.9); MONOCYTES % (AUTO) 10.5 % (2-12); PLATELET COUNT 381 X10'3 (140-440); RED BLOOD COUNT 2.92 X10'6 (4.20-5.60); RED CELL DISTRIBUTION WIDTH 15.4 % (11.5-14.5); WHITE BLOOD COUNT 5.5 X10'3 (4.5-11.0)
[2017-07-13 05:49] LABS: ALANINE AMINOTRANSFERASE 11 U/L (12-78); ALBUMIN 1.2 G/DL (3.4-5.0); ALBUMIN/GLOBULIN RATIO 0.3 (1.1-1.5); ALKALINE PHOSPHATASE 114 IU/L (46-116); ANION GAP 12 (8-16); ASPARTATE AMINO TRANSFERASE 12 U/L (10-37); BILIRUBIN,TOTAL 0.1 MG/DL (0.1-1.0); BLOOD UREA NITROGEN 31 MG/DL (7-18); BUN/CREATININE RATIO 4.2 (6.6-38.0); CALCIUM 8.5 MG/DL (8.5-10.1); CHLORIDE 101 MMOL/L (99-107); GLUCOSE 297 MG/DL (70-104); POTASSIUM 3.6 MMOL/L (3.5-5.1); SODIUM 140 MMOL/L (135-145); TOTAL CARBON DIOXIDE 27.4 MMOL/L (24-32); eGFR 6 ML/MIN
[2017-07-13] MEDS ORDERED: LIDOcaine 1% (10mg/ml) 2ml vial SQ ONE ×2 (08:00)
[2017-07-13] MEDS: insulin glargine (Lantus) pen - multi-dose SQ SCH ×2 (08:00→20:00)
[2017-07-13] MEDS: furosemide 40mg tablet PO SCH ×2 (08:00→20:00)
[2017-07-13] MEDS ORDERED: heparin 1,000 units/ml 10ml inj IV ONE ×2 (08:00)
[2017-07-13] MEDS ORDERED: normal saline 1000ml 250 ML IV PRN ×2 (08:00)
[2017-07-13 08:02] VITALS: BP 128/73
[2017-07-13 11:00] VITALS: BP 147/65
[2017-07-13] MEDS: lactobacillus rhamnosus 10,000 MMU CELLS/CAPSULE PO SCH ×2 (11:14→20:52)
[2017-07-13] MEDS: pantoprazole 40mg Tablet.DR PO SCH (11:15)
[2017-07-13] MEDS: atorvastatin 10mg tablet PO SCH (11:15)
[2017-07-13] MEDS: carVEDilol 12.5mg tablet PO SCH ×2 (11:15→20:52)
[2017-07-13] MEDS: NIFEdipine XL 30mg tablet PO SCH (11:15)
[2017-07-13] MEDS: heparin, porcine 5000 units/ml vial SQ SCH ×2 (11:16→20:55)
[2017-07-13] MEDS: insulin NPH/REG insulin (NovoLIN 70/30) 10ml vial SQ SCH (11:17)
[2017-07-13] MEDS: ondansetron/PF 4mg/2ml inj IV PRN (11:34)
[2017-07-13 18:00] VITALS: BP 113/54
[2017-07-13] MEDS: albuterol 2.5 MG/3 ML nebule NEB PRN (20:25)
[2017-07-13] MEDS: aspirin 81mg tab.chew PO SCH (20:55)
[2017-07-13] MEDS: gabapentin 100mg capsule PO SCH (20:55)
[2017-07-13] MEDS: diphenhydrAMINE 25mg capsule PO SCH (21:00)
[2017-07-14] MEDS: vancomcyin 250mg capsules PO SCH ×4 (02:11→20:37)
[2017-07-14] MEDS: acetaminophen w/codeine (30MG) #3 tablet PO PRN ×3 (02:13→20:37)
[2017-07-14] MEDS: ondansetron 4mg rapidly disintigrating tab PO PRN ×3 (02:14→20:36)
[2017-07-14 07:23] VITALS: BP 129/55
[2017-07-14] MEDS: insulin glargine (Lantus) pen - multi-dose SQ SCH ×2 (08:00→20:00)
[2017-07-14] MEDS: insulin NPH/REG insulin (NovoLIN 70/30) 10ml vial SQ SCH (08:00)
[2017-07-14] MEDS: pantoprazole 40mg Tablet.DR PO SCH (09:40)
[2017-07-14] MEDS: lactobacillus rhamnosus 10,000 MMU CELLS/CAPSULE PO SCH ×2 (09:41→20:37)
[2017-07-14] MEDS: carVEDilol 12.5mg tablet PO SCH ×2 (09:41→20:37)
[2017-07-14] MEDS: NIFEdipine XL 30mg tablet PO SCH (09:41)
[2017-07-14] MEDS: furosemide 40mg tablet PO SCH ×2 (09:41→20:37)
[2017-07-14] MEDS: atorvastatin 10mg tablet PO SCH (09:41)
[2017-07-14] MEDS: heparin, porcine 5000 units/ml vial SQ SCH ×2 (09:43→20:38)
[2017-07-14 11:22] VITALS: BP 142/68
[2017-07-14 19:10] VITALS: BP 115/60
[2017-07-14] MEDS: aspirin 81mg tab.chew PO SCH (20:37)
[2017-07-14] MEDS: gabapentin 100mg capsule PO SCH (20:37)
[2017-07-14] MEDS: albuterol 2.5 MG/3 ML nebule NEB PRN (21:25)
[2017-07-15] VITALS: BP 132/58
[2017-07-15] MEDS: vancomcyin 250mg capsules PO SCH ×3 (02:06→14:54)
[2017-07-15] MEDS: albuterol 2.5 MG/3 ML nebule NEB PRN ×2 (05:01→19:29)
[2017-07-15 07:39] VITALS: BP 146/55
[2017-07-15] MEDS: insulin glargine (Lantus) pen - multi-dose SQ SCH ×2 (08:00→20:00)
[2017-07-15] MEDS: insulin NPH/REG insulin (NovoLIN 70/30) 10ml vial SQ SCH (08:00)
[2017-07-15] MEDS: ondansetron 4mg rapidly disintigrating tab PO PRN ×3 (09:54→20:55)
[2017-07-15] MEDS: carVEDilol 12.5mg tablet PO SCH ×2 (09:55→20:58)
[2017-07-15] MEDS: pantoprazole 40mg Tablet.DR PO SCH (09:55)
[2017-07-15] MEDS: lactobacillus rhamnosus 10,000 MMU CELLS/CAPSULE PO SCH ×2 (09:55→20:55)
[2017-07-15] MEDS: NIFEdipine XL 30mg tablet PO SCH (09:56)
[2017-07-15] MEDS: furosemide 40mg tablet PO SCH ×2 (09:56→20:58)
[2017-07-15] MEDS: atorvastatin 10mg tablet PO SCH (09:56)
[2017-07-15] MEDS: heparin, porcine 5000 units/ml vial SQ SCH ×2 (09:57→20:54)
[2017-07-15 11:30] VITALS: BP 139/78
[2017-07-15 20:00] VITALS: BP 114/57
[2017-07-15] MEDS: gabapentin 100mg capsule PO SCH (20:58)
[2017-07-15] MEDS: aspirin 81mg tab.chew PO SCH (20:58)
[2017-07-16] VITALS: BP 126/56
[2017-07-16 06:00] VITALS: BP 129/84
[2017-07-16] MEDS: insulin glargine (Lantus) pen - multi-dose SQ SCH ×2 (07:42→21:49)
[2017-07-16] MEDS: insulin NPH/REG insulin (NovoLIN 70/30) 10ml vial SQ SCH (07:42)
[2017-07-16] MEDS: atorvastatin 10mg tablet PO SCH (07:50)
[2017-07-16] MEDS: furosemide 40mg tablet PO SCH ×2 (07:50→20:15)
[2017-07-16] MEDS: lactobacillus rhamnosus 10,000 MMU CELLS/CAPSULE PO SCH ×2 (07:50→20:16)
[2017-07-16] MEDS: carVEDilol 12.5mg tablet PO SCH ×2 (07:50→20:15)
[2017-07-16] MEDS: pantoprazole 40mg Tablet.DR PO SCH (07:50)
[2017-07-16] MEDS: ondansetron 4mg rapidly disintigrating tab PO PRN (07:51)
[2017-07-16] MEDS: calcium acetate 667mg (PhosLO) capsule PO SCH ×3 (07:51→20:16)
[2017-07-16] MEDS: NIFEdipine XL 30mg tablet PO SCH (07:51)
[2017-07-16] MEDS: heparin, porcine 5000 units/ml vial SQ SCH ×2 (08:01→20:19)
[2017-07-16 11:00] VITALS: BP 134/72
[2017-07-16] MEDS: albuterol 2.5 MG/3 ML nebule NEB PRN ×2 (11:27→18:58)
[2017-07-16] MEDS: carbamide peroxide 15ml bottle LEFT EAR SCH ×2 (14:12→20:22)
[2017-07-16 20:00] VITALS: BP 114/66
[2017-07-16] MEDS: gabapentin 100mg capsule PO SCH (20:15)
[2017-07-16] MEDS: aspirin 81mg tab.chew PO SCH (20:15)
[2017-07-17] VITALS: BP 133/58
[2017-07-17] MEDS: insulin glargine (Lantus) pen - multi-dose SQ SCH ×2 (08:00→21:22)
[2017-07-17] MEDS: insulin NPH/REG insulin (NovoLIN 70/30) 10ml vial SQ SCH (08:00)
[2017-07-17 08:58] VITALS: BP 133/68
[2017-07-17] MEDS: heparin, porcine 5000 units/ml vial SQ SCH ×2 (10:11→21:09)
[2017-07-17] MEDS: furosemide 40mg tablet PO SCH ×2 (10:12→21:18)
[2017-07-17] MEDS: carVEDilol 12.5mg tablet PO SCH ×2 (10:12→21:18)
[2017-07-17] MEDS: atorvastatin 10mg tablet PO SCH (10:12)
[2017-07-17] MEDS: NIFEdipine XL 30mg tablet PO SCH (10:12)
[2017-07-17] MEDS: pantoprazole 40mg Tablet.DR PO SCH (10:12)
[2017-07-17] MEDS: lactobacillus rhamnosus 10,000 MMU CELLS/CAPSULE PO SCH ×2 (10:12→21:14)
[2017-07-17] MEDS: carbamide peroxide 15ml bottle LEFT EAR SCH (10:13)
[2017-07-17] MEDS: calcium acetate 667mg (PhosLO) capsule PO SCH ×3 (10:13→17:54)
[2017-07-17] MEDS: ondansetron 4mg rapidly disintigrating tab PO PRN ×2 (10:27→21:08)
[2017-07-17 11:43] LABS: BASOPHILS % (AUTO) 0.6 % (0-1); EOSINOPHILS # (AUTO) 0.1 X10'3 (0-0.9); EOSINOPHILS % (AUTO) 2.7 % (0-6); HEMATOCRIT 22.6 % (35.0-45.0); HEMOGLOBIN 7.4 g/dl (12.0-16.0); LYMPHOCYTES # (AUTO) 0.9 X10'3 (1.1-4.8); LYMPHOCYTES % (AUTO) 16.1 % (21-51); MEAN CORPUSCULAR HEMOGLOBIN 26.1 PG (27.0-31.0); MEAN CORPUSCULAR HGB CONC 32.5 % (33.0-36.5); MEAN CORPUSCULAR VOLUME 80.5 FL (78-98); MONOCYTES # (AUTO) 0.5 X10'3 (0-0.9); MONOCYTES % (AUTO) 9.5 % (2-12); NEUTROPHILS % (AUTO) 71.1 % (42-75); PLATELET COUNT 341 X10'3 (140-440); RED BLOOD COUNT 2.81 X10'6 (4.20-5.60); RED CELL DISTRIBUTION WIDTH 14.9 % (11.5-14.5); WHITE BLOOD COUNT 5.5 X10'3 (4.5-11.0)
[2017-07-17 11:49] VITALS: BP 129/76
[2017-07-17 11:55] LABS: ALBUMIN 1.4 G/DL (3.4-5.0); ANION GAP 9 (8-16); BLOOD UREA NITROGEN 26 MG/DL (7-18); CALCIUM 8.2 MG/DL (8.5-10.1); CHLORIDE 103 MMOL/L (99-107); CREATININE 6.56 MG/DL (0.40-0.90); GLUCOSE 172 MG/DL (70-104); PHOSPHORUS 5.6 MG/DL (2.3-4.5); POTASSIUM 3.7 MMOL/L (3.5-5.1); SODIUM 141 MMOL/L (135-145); TOTAL CARBON DIOXIDE 29.1 MMOL/L (24-32); eGFR 7 ML/MIN
[2017-07-17] MEDS ORDERED: epoetin 20,000 units/ml inj SQ ONE (17:55)
[2017-07-17 19:37] LABS: % IRON SATURATION 38 % (11-46); IRON 47 UG/DL (49-151); TOTAL IRON BINDING CAPACITY 124 UG/DL (259-388)
[2017-07-17 20:00] VITALS: BP 100/48
[2017-07-17 20:51] LABS: FERRITIN 653 NG/ML (8-252)
[2017-07-17] MEDS: gabapentin 100mg capsule PO SCH (21:14)
[2017-07-17] MEDS: aspirin 81mg tab.chew PO SCH (21:14)
[2017-07-18] VITALS: BP 123/56
[2017-07-18] MEDS: simethicone 80mg chew tab PO PRN (00:55)
[2017-07-18 07:00] VITALS: BP 147/68
[2017-07-18] MEDS: insulin NPH/REG insulin (NovoLIN 70/30) 10ml vial SQ SCH (08:00)
[2017-07-18] MEDS: insulin glargine (Lantus) pen - multi-dose SQ SCH ×2 (08:00→22:06)
[2017-07-18] MEDS: calcium acetate 667mg (PhosLO) capsule PO SCH ×3 (08:09→18:23)
[2017-07-18] MEDS: pantoprazole 40mg Tablet.DR PO SCH (08:09)
[2017-07-18] MEDS: lactobacillus rhamnosus 10,000 MMU CELLS/CAPSULE PO SCH ×2 (08:09→22:08)
[2017-07-18] MEDS: atorvastatin 10mg tablet PO SCH (08:09)
[2017-07-18] MEDS: furosemide 40mg tablet PO SCH ×3 (08:10→22:07)
[2017-07-18] MEDS: carVEDilol 12.5mg tablet PO SCH ×2 (08:10→22:07)
[2017-07-18] MEDS: heparin, porcine 5000 units/ml vial SQ SCH ×2 (08:10→22:05)
[2017-07-18] MEDS: NIFEdipine XL 30mg tablet PO SCH (08:10)
[2017-07-18] MEDS: ondansetron/PF 4mg/2ml inj IV PRN (08:17)
[2017-07-18] MEDS: ondansetron 4mg rapidly disintigrating tab PO PRN ×2 (08:45→15:56)
[2017-07-18] MEDS: acetaminophen w/codeine (30MG) #3 tablet PO PRN (15:56)
[2017-07-18 20:00] VITALS: BP 119/63
[2017-07-18] MEDS: gabapentin 100mg capsule PO SCH (22:07)
[2017-07-18] MEDS: aspirin 81mg tab.chew PO SCH (22:08)
[2017-07-19] VITALS: BP 134/73
[2017-07-19] MEDS: acetaminophen w/codeine (30MG) #3 tablet PO PRN (03:38)
[2017-07-19] MEDS: ondansetron 4mg rapidly disintigrating tab PO PRN ×2 (03:39→13:25)
[2017-07-19 07:30] VITALS: BP 157/69
[2017-07-19] MEDS: carVEDilol 12.5mg tablet PO SCH ×2 (07:39→21:09)
[2017-07-19] MEDS: pantoprazole 40mg Tablet.DR PO SCH (07:39)
[2017-07-19] MEDS: atorvastatin 10mg tablet PO SCH (07:39)
[2017-07-19] MEDS: lactobacillus rhamnosus 10,000 MMU CELLS/CAPSULE PO SCH ×2 (07:39→21:09)
[2017-07-19] MEDS: furosemide 40mg tablet PO SCH ×2 (07:39→20:00)
[2017-07-19] MEDS: NIFEdipine XL 30mg tablet PO SCH (07:39)
[2017-07-19] MEDS: heparin, porcine 5000 units/ml vial SQ SCH ×2 (07:40→21:07)
[2017-07-19] MEDS: insulin glargine (Lantus) pen - multi-dose SQ SCH ×2 (07:41→20:00)
[2017-07-19] MEDS: calcium acetate 667mg (PhosLO) capsule PO SCH ×3 (08:00→18:00)
[2017-07-19] MEDS: insulin NPH/REG insulin (NovoLIN 70/30) 10ml vial SQ SCH (08:00)
[2017-07-19 11:47] VITALS: BP 119/66
[2017-07-19 18:00] VITALS: BP 146/67
[2017-07-19] MEDS: gabapentin 100mg capsule PO SCH (21:08)
[2017-07-19] MEDS: aspirin 81mg tab.chew PO SCH (21:09)
[2017-07-20] VITALS: BP 162/63
[2017-07-20] MEDS: ondansetron 4mg rapidly disintigrating tab PO PRN ×3 (04:43→23:19)
[2017-07-20] MEDS: acetaminophen w/codeine (30MG) #3 tablet PO PRN (04:44)
[2017-07-20] MEDS: insulin NPH/REG insulin (NovoLIN 70/30) 10ml vial SQ SCH (08:00)
[2017-07-20] MEDS: insulin glargine (Lantus) pen - multi-dose SQ SCH ×2 (08:00→20:00)
[2017-07-20] MEDS: pantoprazole 40mg Tablet.DR PO SCH (08:50)
[2017-07-20] MEDS: NIFEdipine XL 30mg tablet PO SCH (08:50)
[2017-07-20] MEDS: lactobacillus rhamnosus 10,000 MMU CELLS/CAPSULE PO SCH ×2 (08:50→21:51)
[2017-07-20] MEDS: calcium acetate 667mg (PhosLO) capsule PO SCH ×3 (08:50→18:00)
[2017-07-20] MEDS: atorvastatin 10mg tablet PO SCH (08:50)
[2017-07-20] MEDS: carVEDilol 12.5mg tablet PO SCH ×2 (08:50→21:50)
[2017-07-20] MEDS: furosemide 40mg tablet PO SCH ×2 (08:50→20:00)
[2017-07-20] MEDS: heparin, porcine 5000 units/ml vial SQ SCH ×2 (08:51→21:52)
[2017-07-20 09:47] VITALS: BP 141/82
[2017-07-20 11:54] VITALS: BP 150/68
[2017-07-20 18:00] VITALS: BP 122/60
[2017-07-20] MEDS: aspirin 81mg tab.chew PO SCH (21:50)
[2017-07-20] MEDS: gabapentin 100mg capsule PO SCH (21:51)
[2017-07-20] MEDS: albuterol 2.5 MG/3 ML nebule NEB PRN (22:03)
[2017-07-20] MEDS ORDERED: temazepam 15mg capsule PO ONE (23:35)
[2017-07-21] VITALS: BP 141/69
[2017-07-21 07:00] VITALS: BP 157/63
[2017-07-21] MEDS: insulin NPH/REG insulin (NovoLIN 70/30) 10ml vial SQ SCH (08:00)
[2017-07-21] MEDS: calcium acetate 667mg (PhosLO) capsule PO SCH ×3 (08:00→18:00)
[2017-07-21] MEDS: insulin glargine (Lantus) pen - multi-dose SQ SCH ×2 (08:00→20:00)
[2017-07-21] MEDS: atorvastatin 10mg tablet PO SCH (09:58)
[2017-07-21] MEDS: carVEDilol 12.5mg tablet PO SCH ×2 (10:00→20:00)
[2017-07-21] MEDS: NIFEdipine XL 30mg tablet PO SCH (10:00)
[2017-07-21] MEDS: furosemide 40mg tablet PO SCH ×2 (10:00→20:41)
[2017-07-21] MEDS: lactobacillus rhamnosus 10,000 MMU CELLS/CAPSULE PO SCH ×2 (10:00→20:41)
[2017-07-21] MEDS: heparin, porcine 5000 units/ml vial SQ SCH ×2 (10:01→20:42)
[2017-07-21] MEDS: pantoprazole 40mg Tablet.DR PO SCH (10:03)
[2017-07-21 11:26] VITALS: BP 142/81
[2017-07-21 18:50] VITALS: BP 113/53
[2017-07-21] MEDS ORDERED: temazepam 15mg capsule PO ONE (22:35)
[2017-07-21] MEDS: gabapentin 100mg capsule PO SCH (22:47)
[2017-07-21] MEDS: aspirin 81mg tab.chew PO SCH (22:47)
[2017-07-22] VITALS: BP 136/62
[2017-07-22 07:00] VITALS: BP 140/60
[2017-07-22] MEDS: NIFEdipine XL 30mg tablet PO SCH (07:47)
[2017-07-22] MEDS: furosemide 40mg tablet PO SCH ×2 (07:47→20:44)
[2017-07-22] MEDS: atorvastatin 10mg tablet PO SCH (07:47)
[2017-07-22] MEDS: carVEDilol 12.5mg tablet PO SCH ×2 (07:47→20:44)
[2017-07-22] MEDS: simethicone 80mg chew tab PO PRN (07:47)
[2017-07-22] MEDS: pantoprazole 40mg Tablet.DR PO SCH (07:47)
[2017-07-22] MEDS: lactobacillus rhamnosus 10,000 MMU CELLS/CAPSULE PO SCH ×2 (07:47→20:44)
[2017-07-22] MEDS: calcium acetate 667mg (PhosLO) capsule PO SCH ×3 (07:47→18:07)
[2017-07-22] MEDS: heparin, porcine 5000 units/ml vial SQ SCH ×2 (07:49→20:45)
[2017-07-22] MEDS: insulin NPH/REG insulin (NovoLIN 70/30) 10ml vial SQ SCH (07:57)
[2017-07-22] MEDS: insulin glargine (Lantus) pen - multi-dose SQ SCH ×2 (07:57→20:00)
[2017-07-22 11:00] VITALS: BP 126/54
[2017-07-22 20:00] VITALS: BP 126/68
[2017-07-22] MEDS: gabapentin 100mg capsule PO SCH (20:44)
[2017-07-22] MEDS: aspirin 81mg tab.chew PO SCH (20:44)
[2017-07-22] MEDS: ondansetron 4mg rapidly disintigrating tab PO PRN (20:56)
[2017-07-22] MEDS: albuterol 2.5 MG/3 ML nebule NEB PRN (22:28)
[2017-07-23] VITALS: BP 133/60
[2017-07-23] MEDS: ondansetron 4mg rapidly disintigrating tab PO PRN ×2 (04:35→11:40)
[2017-07-23] MEDS: acetaminophen w/codeine (30MG) #3 tablet PO PRN ×2 (04:35→11:40)
[2017-07-23] MEDS: insulin glargine (Lantus) pen - multi-dose SQ SCH ×2 (08:00→20:00)
[2017-07-23] MEDS: insulin NPH/REG insulin (NovoLIN 70/30) 10ml vial SQ SCH (08:00)
[2017-07-23] MEDS: calcium acetate 667mg (PhosLO) capsule PO SCH ×3 (08:00→20:37)
[2017-07-23 08:42] VITALS: BP 143/61
[2017-07-23] MEDS: carVEDilol 12.5mg tablet PO SCH ×2 (09:42→20:37)
[2017-07-23] MEDS: atorvastatin 10mg tablet PO SCH (09:42)
[2017-07-23] MEDS: furosemide 40mg tablet PO SCH ×2 (09:42→20:37)
[2017-07-23] MEDS: pantoprazole 40mg Tablet.DR PO SCH (09:42)
[2017-07-23] MEDS: lactobacillus rhamnosus 10,000 MMU CELLS/CAPSULE PO SCH ×2 (09:42→20:37)
[2017-07-23] MEDS: NIFEdipine XL 30mg tablet PO SCH (09:43)
[2017-07-23] MEDS: heparin, porcine 5000 units/ml vial SQ SCH ×2 (09:44→20:38)
[2017-07-23 11:24] VITALS: BP 146/65
[2017-07-23 20:00] VITALS: BP 124/58
[2017-07-23] MEDS: gabapentin 100mg capsule PO SCH (20:37)
[2017-07-23] MEDS: aspirin 81mg tab.chew PO SCH (20:37)
[2017-07-24] VITALS: BP 130/59
[2017-07-24] MEDS: acetaminophen w/codeine (30MG) #3 tablet PO PRN ×3 (00:12→21:51)
[2017-07-24] MEDS: ondansetron 4mg rapidly disintigrating tab PO PRN ×3 (00:12→21:51)
[2017-07-24] MEDS: albuterol 2.5 MG/3 ML nebule NEB PRN ×2 (00:57→20:18)
[2017-07-24] MEDS: insulin glargine (Lantus) pen - multi-dose SQ SCH ×2 (08:00→20:00)
[2017-07-24] MEDS: insulin NPH/REG insulin (NovoLIN 70/30) 10ml vial SQ SCH (08:00)
[2017-07-24] MEDS: carVEDilol 12.5mg tablet PO SCH ×2 (09:21→21:40)
[2017-07-24] MEDS: lactobacillus rhamnosus 10,000 MMU CELLS/CAPSULE PO SCH ×2 (09:21→21:40)
[2017-07-24] MEDS: pantoprazole 40mg Tablet.DR PO SCH (09:21)
[2017-07-24] MEDS: furosemide 40mg tablet PO SCH ×2 (09:21→21:40)
[2017-07-24] MEDS: NIFEdipine XL 30mg tablet PO SCH (09:22)
[2017-07-24] MEDS: atorvastatin 10mg tablet PO SCH (09:22)
[2017-07-24] MEDS: heparin, porcine 5000 units/ml vial SQ SCH ×2 (09:23→21:40)
[2017-07-24] MEDS: calcium acetate 667mg (PhosLO) capsule PO SCH ×3 (09:23→21:40)
[2017-07-24 09:38] VITALS: BP 142/61
[2017-07-24 11:15] VITALS: BP 131/63
[2017-07-24 20:00] VITALS: BP 137/63
[2017-07-24] MEDS: gabapentin 100mg capsule PO SCH (21:40)
[2017-07-24] MEDS: aspirin 81mg tab.chew PO SCH (21:40)
[2017-07-25] VITALS: BP 146/66
[2017-07-25 07:41] VITALS: BP 133/70
[2017-07-25] MEDS: calcium acetate 667mg (PhosLO) capsule PO SCH ×4 (08:00→20:08)
[2017-07-25] MEDS: insulin glargine (Lantus) pen - multi-dose SQ SCH ×2 (08:00→20:00)
[2017-07-25] MEDS: ondansetron 4mg rapidly disintigrating tab PO PRN ×2 (09:54→20:09)
[2017-07-25] MEDS: carVEDilol 12.5mg tablet PO SCH ×2 (09:55→20:08)
[2017-07-25] MEDS: atorvastatin 10mg tablet PO SCH (09:55)
[2017-07-25] MEDS: furosemide 40mg tablet PO SCH ×2 (09:56→20:09)
[2017-07-25] MEDS: pantoprazole 40mg Tablet.DR PO SCH (09:56)
[2017-07-25] MEDS: NIFEdipine XL 30mg tablet PO SCH (09:57)
[2017-07-25] MEDS: heparin, porcine 5000 units/ml vial SQ SCH ×2 (09:59→20:07)
[2017-07-25] MEDS: lactobacillus rhamnosus 10,000 MMU CELLS/CAPSULE PO SCH ×2 (10:03→21:12)
[2017-07-25] MEDS: insulin NPH/REG insulin (NovoLIN 70/30) 10ml vial SQ SCH (10:14)
[2017-07-25 11:00] VITALS: BP 135/78
[2017-07-25 20:00] VITALS: BP 120/54
[2017-07-25] MEDS: acetaminophen w/codeine (30MG) #3 tablet PO PRN (21:13)
[2017-07-25] MEDS: gabapentin 100mg capsule PO SCH (21:13)
[2017-07-25] MEDS: aspirin 81mg tab.chew PO SCH (21:13)
[2017-07-25 23:21] LABS: CLARITY,URINE TURBID (Clear); COLOR,URINE YELLOW (Yellow); GLUCOSE, URINE 250 mg/dl (Neg); KETONES,URINE NEGATIVE (Neg); LEUKOCYTE ESTERASE ,URINE LARGE (Neg); NITRITES, URINE NEGATIVE (Neg); OCCULT BLOOD,URINE MODERATE (Neg); PROTEIN,URINE >=300 mg/dl (Neg); UROBILINOGEN,URINE 0.2 E.U/dL (0.2-1.0)
[2017-07-25 23:28] LABS: UA COLLECTION TYPE STRAIGHT CATH
[2017-07-25 23:29] LABS: BACTERIA,URINE FEW /HPF (Neg); WBC CLUMPS,URINE MODERATE /HPF (NEGATIVE); WBC,URINE TNTC /HPF (0-4)
[2017-07-26 00:10] VITALS: BP 135/61
[2017-07-26 00:16] LABS: SQUAMOUS EPITHELIAL CELL,UR FEW /LPF (FEW)
[2017-07-26] MEDS: albuterol 2.5 MG/3 ML nebule NEB PRN ×2 (00:43→21:25)
[2017-07-26] MEDS: acetaminophen w/codeine (30MG) #3 tablet PO PRN ×2 (03:30→21:45)
[2017-07-26 07:00] VITALS: BP 122/62
[2017-07-26] MEDS: insulin NPH/REG insulin (NovoLIN 70/30) 10ml vial SQ SCH (08:00)
[2017-07-26] MEDS: insulin glargine (Lantus) pen - multi-dose SQ SCH ×2 (08:00→20:00)
[2017-07-26] MEDS: calcium acetate 667mg (PhosLO) capsule PO SCH ×3 (08:00→18:00)
[2017-07-26] MEDS: pantoprazole 40mg Tablet.DR PO SCH (10:31)
[2017-07-26] MEDS: carVEDilol 12.5mg tablet PO SCH ×2 (10:31→20:00)
[2017-07-26] MEDS: furosemide 40mg tablet PO SCH ×2 (10:31→20:03)
[2017-07-26] MEDS: lactobacillus rhamnosus 10,000 MMU CELLS/CAPSULE PO SCH ×2 (10:32→20:03)
[2017-07-26] MEDS: atorvastatin 10mg tablet PO SCH (10:32)
[2017-07-26] MEDS: NIFEdipine XL 30mg tablet PO SCH (10:33)
[2017-07-26] MEDS: heparin, porcine 5000 units/ml vial SQ SCH ×2 (10:36→20:03)
[2017-07-26 11:00] VITALS: BP 145/68
[2017-07-26] MEDS: ondansetron 4mg rapidly disintigrating tab PO PRN ×2 (11:19→20:01)
[2017-07-26 18:00] VITALS: BP 100/45
[2017-07-26] MEDS: aspirin 81mg tab.chew PO SCH (21:45)
[2017-07-26] MEDS: gabapentin 100mg capsule PO SCH (21:45)
[2017-07-27 00:10] VITALS: BP 127/56
[2017-07-27] MEDS: zolpidem 5mg tablet PO PRN (01:53)
[2017-07-27] MEDS: ondansetron 4mg rapidly disintigrating tab PO PRN ×3 (06:04→20:54)
[2017-07-27] MEDS: acetaminophen w/codeine (30MG) #3 tablet PO PRN ×2 (06:05→19:50)
[2017-07-27 08:00] VITALS: BP 161/67
[2017-07-27] MEDS: insulin glargine (Lantus) pen - multi-dose SQ SCH ×2 (08:00→20:00)
[2017-07-27] MEDS: insulin NPH/REG insulin (NovoLIN 70/30) 10ml vial SQ SCH (08:00)
[2017-07-27] MEDS: lactobacillus rhamnosus 10,000 MMU CELLS/CAPSULE PO SCH ×2 (09:23→20:54)
[2017-07-27] MEDS: pantoprazole 40mg Tablet.DR PO SCH (09:23)
[2017-07-27] MEDS: carVEDilol 12.5mg tablet PO SCH ×2 (09:23→20:00)
[2017-07-27] MEDS: calcium acetate 667mg (PhosLO) capsule PO SCH ×4 (09:24→19:43)
[2017-07-27] MEDS: atorvastatin 10mg tablet PO SCH (09:24)
[2017-07-27] MEDS: furosemide 40mg tablet PO SCH ×2 (09:24→20:54)
[2017-07-27] MEDS: heparin, porcine 5000 units/ml vial SQ SCH ×2 (09:25→20:57)
[2017-07-27] MEDS: NIFEdipine XL 30mg tablet PO SCH (09:25)
[2017-07-27 11:56] LABS: BASOPHILS % (AUTO) 0.4 % (0-1); EOSINOPHILS # (AUTO) 0.2 X10'3 (0-0.9); EOSINOPHILS % (AUTO) 3.6 % (0-6); HEMATOCRIT 23.8 % (35.0-45.0); HEMOGLOBIN 7.9 g/dl (12.0-16.0); LYMPHOCYTES # (AUTO) 0.8 X10'3 (1.1-4.8); MEAN CORPUSCULAR HEMOGLOBIN 26.5 PG (27.0-31.0); MEAN CORPUSCULAR HGB CONC 33.1 % (33.0-36.5); MEAN CORPUSCULAR VOLUME 80.2 FL (78-98); MEAN PLATELET VOLUME 7.1 FL (7.4-10.4); MONOCYTES # (AUTO) 0.6 X10'3 (0-0.9); NEUTROPHILS # (AUTO) 5.2 X10'3 (1.8-7.7); PLATELET COUNT 309 X10'3 (140-440); RED BLOOD COUNT 2.97 X10'6 (4.20-5.60); RED CELL DISTRIBUTION WIDTH 16.7 % (11.5-14.5); WHITE BLOOD COUNT 6.9 X10'3 (4.5-11.0)
[2017-07-27 12:13] LABS: ALBUMIN 1.7 G/DL (3.4-5.0); ANION GAP 12 (8-16); BLOOD UREA NITROGEN 45 MG/DL (7-18); BUN/CREATININE RATIO 4.9 (6.6-38.0); CALCIUM 8.8 MG/DL (8.5-10.1); CHLORIDE 102 MMOL/L (99-107); CREATININE 9.17 MG/DL (0.40-0.90); GLUCOSE 252 MG/DL (70-104); SODIUM 142 MMOL/L (135-145); TOTAL CARBON DIOXIDE 28.5 MMOL/L (24-32); eGFR 4 ML/MIN
[2017-07-27 13:06] VITALS: BP 145/65
[2017-07-27 18:00] VITALS: BP 105/56
[2017-07-27] MEDS: gabapentin 100mg capsule PO SCH (20:54)
[2017-07-27] MEDS: aspirin 81mg tab.chew PO SCH (20:55)
[2017-07-27] MEDS: albuterol 2.5 MG/3 ML nebule NEB PRN (23:07)
[2017-07-28 00:01] VITALS: BP 128/62
[2017-07-28] MEDS: ondansetron 4mg rapidly disintigrating tab PO PRN ×2 (05:31→14:21)
[2017-07-28 06:07] LABS: BASOPHILS % (AUTO) 0.5 % (0-1); EOSINOPHILS # (AUTO) 0.2 X10'3 (0-0.9); EOSINOPHILS % (AUTO) 3.7 % (0-6); HEMATOCRIT 25.5 % (35.0-45.0); HEMOGLOBIN 8.5 g/dl (12.0-16.0); LYMPHOCYTES # (AUTO) 0.8 X10'3 (1.1-4.8); LYMPHOCYTES % (AUTO) 15.4 % (21-51); MEAN CORPUSCULAR HEMOGLOBIN 26.5 PG (27.0-31.0); MEAN CORPUSCULAR HGB CONC 33.2 % (33.0-36.5); MEAN CORPUSCULAR VOLUME 79.8 FL (78-98); MEAN PLATELET VOLUME 7.8 FL (7.4-10.4); MONOCYTES # (AUTO) 0.4 X10'3 (0-0.9); MONOCYTES % (AUTO) 7.8 % (2-12); NEUTROPHILS # (AUTO) 3.9 X10'3 (1.8-7.7); NEUTROPHILS % (AUTO) 72.6 % (42-75); PLATELET COUNT 326 X10'3 (140-440); RED CELL DISTRIBUTION WIDTH 16.5 % (11.5-14.5); WHITE BLOOD COUNT 5.4 X10'3 (4.5-11.0)
[2017-07-28 06:33] LABS: ALBUMIN 1.9 G/DL (3.4-5.0); ANION GAP 13 (8-16); BLOOD UREA NITROGEN 45 MG/DL (7-18); BUN/CREATININE RATIO 4.9 (6.6-38.0); CALCIUM 9.1 MG/DL (8.5-10.1); CHLORIDE 101 MMOL/L (99-107); CREATININE 9.19 MG/DL (0.40-0.90); GLUCOSE 338 MG/DL (70-104); POTASSIUM 3.8 MMOL/L (3.5-5.1); SODIUM 141 MMOL/L (135-145); TOTAL CARBON DIOXIDE 26.6 MMOL/L (24-32); eGFR 4 ML/MIN
[2017-07-28 07:00] VITALS: BP 129/58
[2017-07-28] MEDS: insulin NPH/REG insulin (NovoLIN 70/30) 10ml vial SQ SCH (08:00)
[2017-07-28] MEDS: insulin glargine (Lantus) pen - multi-dose SQ SCH ×2 (08:00→20:00)
[2017-07-28] MEDS: heparin, porcine 5000 units/ml vial SQ SCH ×2 (08:00→20:00)
[2017-07-28] MEDS: calcium acetate 667mg (PhosLO) capsule PO SCH ×3 (08:40→17:57)
[2017-07-28] MEDS: furosemide 40mg tablet PO SCH ×2 (08:40→20:00)
[2017-07-28] MEDS: atorvastatin 10mg tablet PO SCH (08:40)
[2017-07-28] MEDS: pantoprazole 40mg Tablet.DR PO SCH (08:40)
[2017-07-28] MEDS: NIFEdipine XL 30mg tablet PO SCH (08:40)
[2017-07-28] MEDS: carVEDilol 12.5mg tablet PO SCH ×2 (08:40→21:27)
[2017-07-28] MEDS: lactobacillus rhamnosus 10,000 MMU CELLS/CAPSULE PO SCH ×2 (08:40→21:27)
[2017-07-28 11:48] VITALS: BP 138/61
[2017-07-28] MEDS ORDERED: bisacodyl 10mg suppository rectal RC PRN (14:20)
[2017-07-28 19:00] VITALS: BP 134/64
[2017-07-28] MEDS: albuterol 2.5 MG/3 ML nebule NEB PRN (20:59)
[2017-07-28] MEDS: gabapentin 100mg capsule PO SCH (21:27)
[2017-07-28] MEDS: aspirin 81mg tab.chew PO SCH (21:27)
[2017-07-29] VITALS: BP 146/75
[2017-07-29] MEDS ORDERED: proCHLORperazine 10mg tablet PO ONE (01:00)
[2017-07-29 05:29] LABS: BASOPHILS % (AUTO) 0.4 % (0-1); EOSINOPHILS # (AUTO) 0.2 X10'3 (0-0.9); EOSINOPHILS % (AUTO) 4.1 % (0-6); HEMATOCRIT 24.5 % (35.0-45.0); HEMOGLOBIN 8.1 g/dl (12.0-16.0); LYMPHOCYTES # (AUTO) 0.7 X10'3 (1.1-4.8); LYMPHOCYTES % (AUTO) 12.9 % (21-51); MEAN CORPUSCULAR HEMOGLOBIN 26.7 PG (27.0-31.0); MEAN CORPUSCULAR HGB CONC 33.2 % (33.0-36.5); MEAN CORPUSCULAR VOLUME 80.6 FL (78-98); MEAN PLATELET VOLUME 7.7 FL (7.4-10.4); MONOCYTES # (AUTO) 0.6 X10'3 (0-0.9); MONOCYTES % (AUTO) 9.9 % (2-12); NEUTROPHILS # (AUTO) 4.2 X10'3 (1.8-7.7); NEUTROPHILS % (AUTO) 72.7 % (42-75); PLATELET COUNT 276 X10'3 (140-440); RED BLOOD COUNT 3.04 X10'6 (4.20-5.60); RED CELL DISTRIBUTION WIDTH 16.4 % (11.5-14.5); WHITE BLOOD COUNT 5.7 X10'3 (4.5-11.0)
[2017-07-29 06:23] LABS: ALBUMIN 1.7 G/DL (3.4-5.0); ANION GAP 15 (8-16); BLOOD UREA NITROGEN 46 MG/DL (7-18); BUN/CREATININE RATIO 4.9 (6.6-38.0); CALCIUM 9.1 MG/DL (8.5-10.1); CHLORIDE 101 MMOL/L (99-107); CREATININE 9.41 MG/DL (0.40-0.90); GLUCOSE 240 MG/DL (70-104); POTASSIUM 3.8 MMOL/L (3.5-5.1); SODIUM 141 MMOL/L (135-145); TOTAL CARBON DIOXIDE 24.6 MMOL/L (24-32); eGFR 4 ML/MIN
[2017-07-29 07:44] VITALS: BP 126/77
[2017-07-29] MEDS: insulin glargine (Lantus) pen - multi-dose SQ SCH ×2 (08:00→20:00)
[2017-07-29] MEDS: calcium acetate 667mg (PhosLO) capsule PO SCH ×3 (08:00→21:15)
[2017-07-29] MEDS: insulin NPH/REG insulin (NovoLIN 70/30) 10ml vial SQ SCH (08:00)
[2017-07-29] MEDS: ondansetron 4mg rapidly disintigrating tab PO PRN ×2 (08:28→21:11)
[2017-07-29] MEDS: NIFEdipine XL 30mg tablet PO SCH (08:40)
[2017-07-29] MEDS: furosemide 40mg tablet PO SCH ×2 (08:40→21:08)
[2017-07-29] MEDS: heparin, porcine 5000 units/ml vial SQ SCH ×2 (08:40→21:09)
[2017-07-29] MEDS: lactobacillus rhamnosus 10,000 MMU CELLS/CAPSULE PO SCH ×2 (08:40→21:08)
[2017-07-29] MEDS: atorvastatin 10mg tablet PO SCH (08:41)
[2017-07-29] MEDS: carVEDilol 12.5mg tablet PO SCH ×2 (08:41→21:08)
[2017-07-29] MEDS: pantoprazole 40mg Tablet.DR PO SCH (08:48)
[2017-07-29 11:00] VITALS: BP 139/64
[2017-07-29] MEDS: proCHLORperazine 5mg tablet PO PRN (14:17)
[2017-07-29] MEDS: bisacodyl 10mg suppository rectal RC PRN (17:19)
[2017-07-29 20:00] VITALS: BP 125/59
[2017-07-29] MEDS: gabapentin 100mg capsule PO SCH (21:07)
[2017-07-29] MEDS: aspirin 81mg tab.chew PO SCH (21:08)
[2017-07-30] VITALS: BP 138/58
[2017-07-30 05:56] LABS: BASOPHILS % (AUTO) 0.6 % (0-1); EOSINOPHILS # (AUTO) 0.2 X10'3 (0-0.9); EOSINOPHILS % (AUTO) 4.3 % (0-6); HEMATOCRIT 24.4 % (35.0-45.0); HEMOGLOBIN 8.2 g/dl (12.0-16.0); LYMPHOCYTES # (AUTO) 0.7 X10'3 (1.1-4.8); LYMPHOCYTES % (AUTO) 13.9 % (21-51); MEAN CORPUSCULAR HEMOGLOBIN 27.1 PG (27.0-31.0); MEAN CORPUSCULAR HGB CONC 33.6 % (33.0-36.5); MEAN CORPUSCULAR VOLUME 80.8 FL (78-98); MEAN PLATELET VOLUME 7.9 FL (7.4-10.4); MONOCYTES # (AUTO) 0.5 X10'3 (0-0.9); MONOCYTES % (AUTO) 10.1 % (2-12); NEUTROPHILS # (AUTO) 3.8 X10'3 (1.8-7.7); NEUTROPHILS % (AUTO) 71.1 % (42-75); PLATELET COUNT 290 X10'3 (140-440); RED BLOOD COUNT 3.02 X10'6 (4.20-5.60); RED CELL DISTRIBUTION WIDTH 16.7 % (11.5-14.5); WHITE BLOOD COUNT 5.4 X10'3 (4.5-11.0)
[2017-07-30 06:05] LABS: ALBUMIN 1.8 G/DL (3.4-5.0); ANION GAP 12 (8-16); BLOOD UREA NITROGEN 47 MG/DL (7-18); BUN/CREATININE RATIO 4.9 (6.6-38.0); CALCIUM 8.9 MG/DL (8.5-10.1); CHLORIDE 102 MMOL/L (99-107); CREATININE 9.67 MG/DL (0.40-0.90); GLUCOSE 306 MG/DL (70-104); POTASSIUM 3.9 MMOL/L (3.5-5.1); SODIUM 141 MMOL/L (135-145); TOTAL CARBON DIOXIDE 26.8 MMOL/L (24-32); eGFR 4 ML/MIN
[2017-07-30 07:40] VITALS: BP 147/70
[2017-07-30] MEDS: insulin glargine (Lantus) pen - multi-dose SQ SCH ×2 (08:00→22:02)
[2017-07-30] MEDS: calcium acetate 667mg (PhosLO) capsule PO SCH ×3 (08:00→22:01)
[2017-07-30] MEDS: insulin NPH/REG insulin (NovoLIN 70/30) 10ml vial SQ SCH (08:00)
[2017-07-30] MEDS: pantoprazole 40mg Tablet.DR PO SCH (09:49)
[2017-07-30] MEDS: atorvastatin 10mg tablet PO SCH (09:49)
[2017-07-30] MEDS: ondansetron 4mg rapidly disintigrating tab PO PRN (09:49)
[2017-07-30] MEDS: carVEDilol 12.5mg tablet PO SCH ×2 (09:50→21:46)
[2017-07-30] MEDS: furosemide 40mg tablet PO SCH ×2 (09:50→22:01)
[2017-07-30] MEDS: lactobacillus rhamnosus 10,000 MMU CELLS/CAPSULE PO SCH ×2 (09:50→21:46)
[2017-07-30] MEDS: NIFEdipine XL 30mg tablet PO SCH (09:51)
[2017-07-30] MEDS: heparin, porcine 5000 units/ml vial SQ SCH ×2 (09:53→22:01)
[2017-07-30 11:40] VITALS: BP 138/60
[2017-07-30] MEDS: albuterol 2.5 MG/3 ML nebule NEB PRN (15:21)
[2017-07-30] MEDS: acetaminophen w/codeine (30MG) #3 tablet PO PRN ×2 (15:29→22:00)
[2017-07-30 20:00] VITALS: BP 116/61
[2017-07-30] MEDS: aspirin 81mg tab.chew PO SCH (21:46)
[2017-07-30] MEDS: proCHLORperazine 5mg tablet PO PRN (21:46)
[2017-07-30] MEDS: gabapentin 100mg capsule PO SCH (21:46)
[2017-07-31] VITALS: BP 125/60
[2017-07-31 07:00] VITALS: BP 132/62
[2017-07-31] MEDS: insulin glargine (Lantus) pen - multi-dose SQ SCH ×2 (08:00→21:11)
[2017-07-31] MEDS: heparin, porcine 5000 units/ml vial SQ SCH ×2 (08:00→20:51)
[2017-07-31] MEDS: calcium acetate 667mg (PhosLO) capsule PO SCH ×3 (08:00→15:39)
[2017-07-31] MEDS: insulin NPH/REG insulin (NovoLIN 70/30) 10ml vial SQ SCH (08:00)
[2017-07-31 08:21] LABS: HEMATOCRIT 22.9 % (35.0-45.0); HEMOGLOBIN 7.6 g/dl (12.0-16.0); MEAN CORPUSCULAR HEMOGLOBIN 26.9 PG (27.0-31.0); MEAN CORPUSCULAR HGB CONC 33.3 % (33.0-36.5); MEAN CORPUSCULAR VOLUME 80.7 FL (78-98); MEAN PLATELET VOLUME 7.9 FL (7.4-10.4); PLATELET COUNT 251 X10'3 (140-440); RED BLOOD COUNT 2.84 X10'6 (4.20-5.60); RED CELL DISTRIBUTION WIDTH 16.7 % (11.5-14.5); WHITE BLOOD COUNT 4.5 X10'3 (4.5-11.0)
[2017-07-31] MEDS: proCHLORperazine 5mg tablet PO PRN ×2 (09:02→16:13)
[2017-07-31] MEDS: simethicone 80mg chew tab PO PRN (09:02)
[2017-07-31] MEDS: lactobacillus rhamnosus 10,000 MMU CELLS/CAPSULE PO SCH ×2 (09:03→20:51)
[2017-07-31] MEDS: NIFEdipine XL 30mg tablet PO SCH (09:03)
[2017-07-31] MEDS: pantoprazole 40mg Tablet.DR PO SCH (09:04)
[2017-07-31] MEDS: carVEDilol 12.5mg tablet PO SCH ×2 (09:05→20:52)
[2017-07-31] MEDS: atorvastatin 10mg tablet PO SCH (09:05)
[2017-07-31] MEDS: furosemide 40mg tablet PO SCH ×2 (09:05→20:52)
[2017-07-31 11:00] VITALS: BP 127/65
[2017-07-31] MEDS: epoetin 20,000 units/ml inj SQ SCH (15:32)
[2017-07-31] MEDS: acetaminophen w/codeine (30MG) #3 tablet PO PRN (16:13)
[2017-07-31 18:00] VITALS: BP 114/55
[2017-07-31] MEDS: albuterol 2.5 MG/3 ML nebule NEB PRN (19:27)
[2017-07-31] MEDS: gabapentin 100mg capsule PO SCH (20:52)
[2017-07-31] MEDS: ondansetron 4mg rapidly disintigrating tab PO PRN (20:52)
[2017-07-31] MEDS: aspirin 81mg tab.chew PO SCH (20:52)
[2017-07-31] MEDS: zolpidem 5mg tablet PO PRN (20:53)
[2017-08-01] VITALS: BP 137/69
[2017-08-01] MEDS: lactobacillus rhamnosus 10,000 MMU CELLS/CAPSULE PO SCH ×2 (07:50→20:13)
[2017-08-01] MEDS: NIFEdipine XL 30mg tablet PO SCH (07:50)
[2017-08-01] MEDS: carVEDilol 12.5mg tablet PO SCH ×2 (07:50→20:00)
[2017-08-01] MEDS: pantoprazole 40mg Tablet.DR PO SCH (07:50)
[2017-08-01] MEDS: atorvastatin 10mg tablet PO SCH (07:50)
[2017-08-01] MEDS: calcium acetate 667mg (PhosLO) capsule PO SCH ×3 (07:50→18:00)
[2017-08-01] MEDS: heparin, porcine 5000 units/ml vial SQ SCH ×2 (07:52→20:12)
[2017-08-01] MEDS: proCHLORperazine 5mg tablet PO PRN (07:58)
[2017-08-01] MEDS: insulin glargine (Lantus) pen - multi-dose SQ SCH ×2 (08:00→20:15)
[2017-08-01] MEDS: acetaminophen w/codeine (30MG) #3 tablet PO PRN ×2 (08:01→23:52)
[2017-08-01] MEDS: insulin NPH/REG insulin (NovoLIN 70/30) 10ml vial SQ SCH (08:18)
[2017-08-01] MEDS: furosemide 40mg tablet PO SCH ×2 (08:21→20:13)
[2017-08-01 08:41] VITALS: BP 130/61
[2017-08-01] MEDS: ondansetron 4mg rapidly disintigrating tab PO PRN ×2 (14:25→23:52)
[2017-08-01 18:00] VITALS: BP 112/46
[2017-08-01] MEDS: bisacodyl 10mg suppository rectal RC PRN (20:12)
[2017-08-01] MEDS: aspirin 81mg tab.chew PO SCH (20:12)
[2017-08-01] MEDS: gabapentin 100mg capsule PO SCH (20:13)
[2017-08-01] MEDS: zolpidem 5mg tablet PO PRN (20:14)
[2017-08-01] MEDS: albuterol 2.5 MG/3 ML nebule NEB PRN (20:50)
[2017-08-02] VITALS: BP 136/59
[2017-08-02] MEDS: albuterol 2.5 MG/3 ML nebule NEB PRN ×2 (06:50→19:57)
[2017-08-02 07:00] VITALS: BP 142/79
[2017-08-02] MEDS: pantoprazole 40mg Tablet.DR PO SCH (07:30)
[2017-08-02] MEDS: epoetin 20,000 units/ml inj SQ SCH (08:00)
[2017-08-02] MEDS: insulin NPH/REG insulin (NovoLIN 70/30) 10ml vial SQ SCH (08:00)
[2017-08-02] MEDS: furosemide 40mg tablet PO SCH ×2 (08:44→21:03)
[2017-08-02] MEDS: lactobacillus rhamnosus 10,000 MMU CELLS/CAPSULE PO SCH ×2 (08:44→21:03)
[2017-08-02] MEDS: carVEDilol 12.5mg tablet PO SCH ×2 (08:44→21:03)
[2017-08-02] MEDS: calcium acetate 667mg (PhosLO) capsule PO SCH ×3 (08:44→18:00)
[2017-08-02] MEDS: atorvastatin 10mg tablet PO SCH (08:44)
[2017-08-02] MEDS: NIFEdipine XL 30mg tablet PO SCH (08:44)
[2017-08-02] MEDS: heparin, porcine 5000 units/ml vial SQ SCH ×2 (08:45→21:05)
[2017-08-02] MEDS: insulin glargine (Lantus) pen - multi-dose SQ SCH ×2 (08:49→20:00)
[2017-08-02 08:57] LABS: BASOPHILS % (AUTO) 0.5 % (0-1); EOSINOPHILS # (AUTO) 0.2 X10'3 (0-0.9); EOSINOPHILS % (AUTO) 3.9 % (0-6); HEMATOCRIT 23.9 % (35.0-45.0); HEMOGLOBIN 7.9 g/dl (12.0-16.0); LYMPHOCYTES # (AUTO) 0.9 X10'3 (1.1-4.8); LYMPHOCYTES % (AUTO) 15.3 % (21-51); MEAN CORPUSCULAR HEMOGLOBIN 26.5 PG (27.0-31.0); MEAN CORPUSCULAR VOLUME 80.2 FL (78-98); MEAN PLATELET VOLUME 8.1 FL (7.4-10.4); MONOCYTES # (AUTO) 0.6 X10'3 (0-0.9); MONOCYTES % (AUTO) 9.6 % (2-12); NEUTROPHILS # (AUTO) 4.4 X10'3 (1.8-7.7); NEUTROPHILS % (AUTO) 70.7 % (42-75); PLATELET COUNT 268 X10'3 (140-440); RED BLOOD COUNT 2.98 X10'6 (4.20-5.60); RED CELL DISTRIBUTION WIDTH 16.4 % (11.5-14.5); WHITE BLOOD COUNT 6.2 X10'3 (4.5-11.0)
[2017-08-02] MEDS: proCHLORperazine 5mg tablet PO PRN (09:48)
[2017-08-02 11:00] VITALS: BP 145/62
[2017-08-02 18:00] VITALS: BP 139/85
[2017-08-02] MEDS: ondansetron 4mg rapidly disintigrating tab PO PRN (20:59)
[2017-08-02] MEDS: acetaminophen w/codeine (30MG) #3 tablet PO PRN (21:03)
[2017-08-02] MEDS: gabapentin 100mg capsule PO SCH (21:03)
[2017-08-02] MEDS: aspirin 81mg tab.chew PO SCH (21:04)
[2017-08-02 23:57] VITALS: BP 146/71
[2017-08-03] MEDS: zolpidem 5mg tablet PO PRN ×2 (01:19→22:48)
[2017-08-03 07:00] VITALS: BP 143/64
[2017-08-03] MEDS: pantoprazole 40mg Tablet.DR PO SCH (07:21)
[2017-08-03] MEDS: lactobacillus rhamnosus 10,000 MMU CELLS/CAPSULE PO SCH ×2 (07:22→20:00)
[2017-08-03] MEDS: NIFEdipine XL 30mg tablet PO SCH (07:22)
[2017-08-03] MEDS: carVEDilol 12.5mg tablet PO SCH ×2 (07:22→20:00)
[2017-08-03] MEDS: furosemide 40mg tablet PO SCH ×2 (07:22→20:00)
[2017-08-03] MEDS: atorvastatin 10mg tablet PO SCH (07:22)
[2017-08-03] MEDS: heparin, porcine 5000 units/ml vial SQ SCH ×2 (07:23→21:46)
[2017-08-03] MEDS: calcium acetate 667mg (PhosLO) capsule PO SCH ×3 (08:00→18:00)
[2017-08-03] MEDS: insulin NPH/REG insulin (NovoLIN 70/30) 10ml vial SQ SCH (08:00)
[2017-08-03] MEDS: ondansetron 4mg rapidly disintigrating tab PO PRN ×2 (12:39→21:12)
[2017-08-03] MEDS: insulin glargine (Lantus) pen - multi-dose SQ SCH ×2 (14:26→21:44)
[2017-08-03 20:00] VITALS: BP 116/60
[2017-08-03] MEDS: aspirin 81mg tab.chew PO SCH (21:00)
[2017-08-03] MEDS: gabapentin 100mg capsule PO SCH (21:00)
[2017-08-03] MEDS: proCHLORperazine 5mg tablet PO PRN (22:48)
[2017-08-04] VITALS: BP 122/56
[2017-08-04] MEDS: acetaminophen w/codeine (30MG) #3 tablet PO PRN ×2 (01:28→21:22)
[2017-08-04] MEDS: gabapentin 100mg capsule PO SCH ×2 (01:28→21:23)
[2017-08-04] MEDS: ondansetron 4mg rapidly disintigrating tab PO PRN ×3 (05:58→21:23)
[2017-08-04 06:58] VITALS: BP 131/66
[2017-08-04] MEDS: pantoprazole 40mg Tablet.DR PO SCH (07:30)
[2017-08-04] MEDS: atorvastatin 10mg tablet PO SCH (08:00)
[2017-08-04] MEDS: lactobacillus rhamnosus 10,000 MMU CELLS/CAPSULE PO SCH ×2 (08:00→21:23)
[2017-08-04] MEDS: insulin glargine (Lantus) pen - multi-dose SQ SCH ×2 (08:00→20:00)
[2017-08-04] MEDS: NIFEdipine XL 30mg tablet PO SCH (08:00)
[2017-08-04] MEDS: carVEDilol 12.5mg tablet PO SCH ×2 (08:00→21:21)
[2017-08-04] MEDS: furosemide 40mg tablet PO SCH ×2 (08:00→21:23)
[2017-08-04] MEDS: heparin, porcine 5000 units/ml vial SQ SCH ×2 (08:00→21:25)
[2017-08-04] MEDS: insulin NPH/REG insulin (NovoLIN 70/30) 10ml vial SQ SCH (08:00)
[2017-08-04] MEDS: calcium acetate 667mg (PhosLO) capsule PO SCH ×2 (08:00→13:00)
[2017-08-04] MEDS: albuterol 2.5 MG/3 ML nebule NEB PRN (08:25)
[2017-08-04 11:00] VITALS: BP 154/80
[2017-08-04] MEDS: sevelamer carbonate 800mg tablet PO SCH (17:30)
[2017-08-04 20:00] VITALS: BP 139/76
[2017-08-04] MEDS: zolpidem 5mg tablet PO PRN (21:21)
[2017-08-04] MEDS: aspirin 81mg tab.chew PO SCH (21:23)
[2017-08-05] VITALS: BP 141/57
[2017-08-05 07:11] VITALS: BP 153/71
[2017-08-05] MEDS: insulin NPH/REG insulin (NovoLIN 70/30) 10ml vial SQ SCH (08:00)
[2017-08-05] MEDS: insulin glargine (Lantus) pen - multi-dose SQ SCH ×2 (08:00→20:00)
[2017-08-05] MEDS: sevelamer carbonate 800mg tablet PO SCH ×4 (08:30→17:30)
[2017-08-05] MEDS: ondansetron 4mg rapidly disintigrating tab PO PRN ×2 (09:09→21:16)
[2017-08-05] MEDS: atorvastatin 10mg tablet PO SCH (09:34)
[2017-08-05] MEDS: heparin, porcine 5000 units/ml vial SQ SCH ×2 (09:34→21:23)
[2017-08-05] MEDS: furosemide 40mg tablet PO SCH ×2 (09:34→21:19)
[2017-08-05] MEDS: lactobacillus rhamnosus 10,000 MMU CELLS/CAPSULE PO SCH ×2 (09:34→21:17)
[2017-08-05] MEDS: carVEDilol 12.5mg tablet PO SCH ×2 (09:34→20:00)
[2017-08-05] MEDS: pantoprazole 40mg Tablet.DR PO SCH ×2 (09:34→21:19)
[2017-08-05] MEDS: NIFEdipine XL 30mg tablet PO SCH (09:35)
[2017-08-05 11:37] LABS: BASOPHILS % (AUTO) 0.6 % (0-1); EOSINOPHILS # (AUTO) 0.2 X10'3 (0-0.9); EOSINOPHILS % (AUTO) 3.2 % (0-6); HEMATOCRIT 23.8 % (35.0-45.0); HEMOGLOBIN 8.1 g/dl (12.0-16.0); LYMPHOCYTES # (AUTO) 0.8 X10'3 (1.1-4.8); LYMPHOCYTES % (AUTO) 10.6 % (21-51); MEAN CORPUSCULAR HEMOGLOBIN 26.7 PG (27.0-31.0); MEAN CORPUSCULAR HGB CONC 33.8 % (33.0-36.5); MEAN PLATELET VOLUME 7.6 FL (7.4-10.4); MONOCYTES # (AUTO) 0.6 X10'3 (0-0.9); MONOCYTES % (AUTO) 7.4 % (2-12); NEUTROPHILS # (AUTO) 6.1 X10'3 (1.8-7.7); NEUTROPHILS % (AUTO) 78.2 % (42-75); PLATELET COUNT 306 X10'3 (140-440); RED BLOOD COUNT 3.01 X10'6 (4.20-5.60); RED CELL DISTRIBUTION WIDTH 16.3 % (11.5-14.5); WHITE BLOOD COUNT 7.8 X10'3 (4.5-11.0)
[2017-08-05 12:05] VITALS: BP 115/52
[2017-08-05] MEDS: proCHLORperazine 5mg tablet PO PRN (12:49)
[2017-08-05] MEDS: epoetin 20,000 units/ml inj SQ SCH (12:51)
[2017-08-05] MEDS: acetaminophen w/codeine (30MG) #3 tablet PO PRN ×2 (13:54→21:18)
[2017-08-05 20:00] VITALS: BP 102/45
[2017-08-05] MEDS: gabapentin 100mg capsule PO SCH (21:18)
[2017-08-05] MEDS: aspirin 81mg tab.chew PO SCH (21:18)
[2017-08-05] MEDS: zolpidem 5mg tablet PO PRN (21:19)
[2017-08-06] MEDS: albuterol 2.5 MG/3 ML nebule NEB PRN (03:27)
[2017-08-06] MEDS: ondansetron 4mg rapidly disintigrating tab PO PRN (05:02)
[2017-08-06] MEDS: acetaminophen w/codeine (30MG) #3 tablet PO PRN ×2 (05:05→21:31)
[2017-08-06 07:56] VITALS: BP 138/59
[2017-08-06] MEDS: insulin glargine (Lantus) pen - multi-dose SQ SCH ×2 (08:00→21:33)
[2017-08-06] MEDS: insulin NPH/REG insulin (NovoLIN 70/30) 10ml vial SQ SCH (08:00)
[2017-08-06] MEDS: sevelamer carbonate 800mg tablet PO SCH ×3 (08:30→17:30)
[2017-08-06] MEDS: lactobacillus rhamnosus 10,000 MMU CELLS/CAPSULE PO SCH ×2 (08:58→21:31)
[2017-08-06] MEDS: NIFEdipine XL 30mg tablet PO SCH (08:58)
[2017-08-06] MEDS: furosemide 40mg tablet PO SCH ×2 (08:58→21:32)
[2017-08-06] MEDS: heparin, porcine 5000 units/ml vial SQ SCH ×2 (08:58→21:32)
[2017-08-06] MEDS: carVEDilol 12.5mg tablet PO SCH ×2 (08:58→21:32)
[2017-08-06] MEDS: atorvastatin 10mg tablet PO SCH (08:58)
[2017-08-06] MEDS: proCHLORperazine 5mg tablet PO PRN ×2 (09:09→21:29)
[2017-08-06 12:18] VITALS: BP 157/99
[2017-08-06 20:00] VITALS: BP 138/68
[2017-08-06] MEDS: gabapentin 100mg capsule PO SCH (21:31)
[2017-08-06] MEDS: aspirin 81mg tab.chew PO SCH (21:31)
[2017-08-07] VITALS: BP 137/71
[2017-08-07 06:56] VITALS: BP 145/65
[2017-08-07] MEDS: pantoprazole 40mg Tablet.DR PO SCH (07:57)
[2017-08-07] MEDS: ondansetron 4mg rapidly disintigrating tab PO PRN (07:58)
[2017-08-07] MEDS: carVEDilol 12.5mg tablet PO SCH (07:59)
[2017-08-07] MEDS: furosemide 40mg tablet PO SCH (07:59)
[2017-08-07] MEDS: lactobacillus rhamnosus 10,000 MMU CELLS/CAPSULE PO SCH (07:59)
[2017-08-07] MEDS: insulin NPH/REG insulin (NovoLIN 70/30) 10ml vial SQ SCH (08:00)
[2017-08-07] MEDS: atorvastatin 10mg tablet PO SCH (08:00)
[2017-08-07] MEDS: insulin glargine (Lantus) pen - multi-dose SQ SCH (08:00)
[2017-08-07] MEDS: NIFEdipine XL 30mg tablet PO SCH (08:00)
[2017-08-07] MEDS: acetaminophen w/codeine (30MG) #3 tablet PO PRN (08:02)
[2017-08-07] MEDS: heparin, porcine 5000 units/ml vial SQ SCH (08:03)
[2017-08-07] MEDS: epoetin 20,000 units/ml inj SQ SCH (08:09)
[2017-08-07] MEDS: sevelamer carbonate 800mg tablet PO SCH ×2 (08:30→12:30)
[2017-08-07 11:52] VITALS: BP 134/72
[2017-08-07] MEDS: albuterol 2.5 MG/3 ML nebule NEB PRN (15:08)
== END 2017-08-07 16:53 | disposition home or self-care (01) | DRG 194 ==
LOC: ER 16:35 → ED HOLD 20:33 → SUR 3N 23:05 → CMPBEDREQ 07-01 19:56
PROVIDERS: ADMIT Internal Medicine Critical Care Medicine; ATTEND Internal Medicine Critical Care Medicine
PROC: 5A1D70Z Performance of Urinary Filtration, Intermittent, Less than 6 Hours Per Day (ICD-10-PCS; 2017-06-29)
PROC: 5A1D70Z Performance of Urinary Filtration, Intermittent, Less than 6 Hours Per Day (ICD-10-PCS; 2017-06-30)
PROC: 5A1D70Z Performance of Urinary Filtration, Intermittent, Less than 6 Hours Per Day (ICD-10-PCS; 2017-07-01)
PROC: 5A1D70Z Performance of Urinary Filtration, Intermittent, Less than 6 Hours Per Day (ICD-10-PCS; 2017-07-02)
PROC: 5A1D70Z Performance of Urinary Filtration, Intermittent, Less than 6 Hours Per Day (ICD-10-PCS; 2017-07-02)
PROC: 5A1D70Z Performance of Urinary Filtration, Intermittent, Less than 6 Hours Per Day (ICD-10-PCS; 2017-07-03)
PROC: 5A1D70Z Performance of Urinary Filtration, Intermittent, Less than 6 Hours Per Day (ICD-10-PCS; 2017-07-05)
PROC: 5A1D70Z Performance of Urinary Filtration, Intermittent, Less than 6 Hours Per Day (ICD-10-PCS; 2017-07-06)
PROC: 5A1D70Z Performance of Urinary Filtration, Intermittent, Less than 6 Hours Per Day (ICD-10-PCS; 2017-07-07)
PROC: 5A1D70Z Performance of Urinary Filtration, Intermittent, Less than 6 Hours Per Day (ICD-10-PCS; 2017-07-10)
PROC: 5A1D70Z Performance of Urinary Filtration, Intermittent, Less than 6 Hours Per Day (ICD-10-PCS; 2017-07-12)
PROC: 5A1D70Z Performance of Urinary Filtration, Intermittent, Less than 6 Hours Per Day (ICD-10-PCS; 2017-07-17)
PROC: 5A1D70Z Performance of Urinary Filtration, Intermittent, Less than 6 Hours Per Day (ICD-10-PCS; 2017-07-18)
PROC: 5A1D70Z Performance of Urinary Filtration, Intermittent, Less than 6 Hours Per Day (ICD-10-PCS; 2017-07-19)
PROC: 5A1D70Z Performance of Urinary Filtration, Intermittent, Less than 6 Hours Per Day (ICD-10-PCS; 2017-07-20)
PROC: 5A1D70Z Performance of Urinary Filtration, Intermittent, Less than 6 Hours Per Day (ICD-10-PCS; 2017-07-21)
PROC: 5A1D70Z Performance of Urinary Filtration, Intermittent, Less than 6 Hours Per Day (ICD-10-PCS; 2017-07-22)
PROC: 5A1D70Z Performance of Urinary Filtration, Intermittent, Less than 6 Hours Per Day (ICD-10-PCS; 2017-07-23)
PROC: 5A1D70Z Performance of Urinary Filtration, Intermittent, Less than 6 Hours Per Day (ICD-10-PCS; 2017-07-24)
PROC: 5A1D70Z Performance of Urinary Filtration, Intermittent, Less than 6 Hours Per Day (ICD-10-PCS; 2017-07-25)
PROC: 5A1D70Z Performance of Urinary Filtration, Intermittent, Less than 6 Hours Per Day (ICD-10-PCS; 2017-07-26)
PROC: 5A1D70Z Performance of Urinary Filtration, Intermittent, Less than 6 Hours Per Day (ICD-10-PCS; 2017-07-27)
PROC: 5A1D70Z Performance of Urinary Filtration, Intermittent, Less than 6 Hours Per Day (ICD-10-PCS; 2017-07-28)
PROC: 5A1D70Z Performance of Urinary Filtration, Intermittent, Less than 6 Hours Per Day (ICD-10-PCS; 2017-07-29)
PROC: 5A1D70Z Performance of Urinary Filtration, Intermittent, Less than 6 Hours Per Day (ICD-10-PCS; 2017-07-30)
PROC: 5A1D70Z Performance of Urinary Filtration, Intermittent, Less than 6 Hours Per Day (ICD-10-PCS; 2017-07-31)
PROC: 5A1D70Z Performance of Urinary Filtration, Intermittent, Less than 6 Hours Per Day (ICD-10-PCS; 2017-08-01)
PROC: 5A1D70Z Performance of Urinary Filtration, Intermittent, Less than 6 Hours Per Day (ICD-10-PCS; 2017-08-02)
PROC: 5A1D70Z Performance of Urinary Filtration, Intermittent, Less than 6 Hours Per Day (ICD-10-PCS; 2017-08-03)
PROC: 5A1D70Z Performance of Urinary Filtration, Intermittent, Less than 6 Hours Per Day (ICD-10-PCS; 2017-08-04)
PROC: 5A1D70Z Performance of Urinary Filtration, Intermittent, Less than 6 Hours Per Day (ICD-10-PCS; 2017-08-05)
PROC: 5A1D70Z Performance of Urinary Filtration, Intermittent, Less than 6 Hours Per Day (ICD-10-PCS; principal; 2017-08-06)
DX: I13.2 Hypertensive heart and chronic kidney disease with heart failure and with stage 5 chronic kidney disease, or end stage renal disease (principal); J18.9 Pneumonia, unspecified organism; N17.9 Acute kidney failure, unspecified; K85.90 Acute pancreatitis without necrosis or infection, unspecified; A04.72 Enterocolitis due to Clostridium difficile, not specified as recurrent; N18.6 End stage renal disease; K76.6 Portal hypertension; N12 Tubulo-interstitial nephritis, not specified as acute or chronic; E11.22 Type 2 diabetes mellitus with diabetic chronic kidney disease; J84.10 Pulmonary fibrosis, unspecified; I50.9 Heart failure, unspecified; I87.1 Compression of vein; E87.6 Hypokalemia; Z99.2 Dependence on renal dialysis; A04.71 Enterocolitis due to Clostridium difficile, recurrent; K57.30 Diverticulosis of large intestine without perforation or abscess without bleeding; K59.00 Constipation, unspecified; M54.10 Radiculopathy, site unspecified; N30.90 Cystitis, unspecified without hematuria; Z79.4 Long term (current) use of insulin; Z79.82 Long term (current) use of aspirin; Z79.899 Other long term (current) drug therapy; Z87.19 Personal history of other diseases of the digestive system; Z90.49 Acquired absence of other specified parts of digestive tract; Z90.710 Acquired absence of both cervix and uterus
CPT/HCPCS: 36415; 36902; 71045; 72192; 74176; 80048; 80053; 80069; 81001; 82728; 82948; 83036; 83540; 83550; 83605; 83690; 83735; 84100; 84484; 85025; 85027; 87040; 87070; 87075; 87077; 87088; 87102; 87186; 87340; 89051; 90935; 93005; 93971; 94640; 94760; 96361; 96374; 97110; 97161; 97530; 97535; 99152; 99153; 99285; A4315; A4353; A4620; A6250; A6402; A6449; C1725; C1769; C1894; G0257; J0885; J1644; J1815; J1956; J2001; J2250; J2405; J3490; J7030; Q0163; Q0164; Q9967

== ENCOUNTER 2017-08-25 13:47 | Inpatient (IN) | payer MEDICAID ==
[~2017-08-25] VITALS: Ht 182.9 cm; Wt 109.0 kg
[~2017-08-25 13:47] MED LIST changes: -AMLO5TAB69
[2017-08-25] MEDS ORDERED: metoclopramide 5 mg/ml inj IV ONE (13:55)
[2017-08-25] MEDS ORDERED: normal saline 1000ML IV soln IVB ONE ×2 (13:55)
[2017-08-25] MEDS ORDERED: LORazepam 2 mg/ml vial IV ONE (13:55)
[2017-08-25 14:38] LABS: BASOPHILS # (AUTO) 0.1 X10'3 (0-0.2); BASOPHILS % (AUTO) 0.5 % (0-1); EOSINOPHILS # (AUTO) 0.2 X10'3 (0-0.9); EOSINOPHILS % (AUTO) 2.1 % (0-6); HEMATOCRIT 24.1 % (35.0-45.0); HEMOGLOBIN 7.8 g/dl (12.0-16.0); LYMPHOCYTES # (AUTO) 0.6 X10'3 (1.1-4.8); LYMPHOCYTES % (AUTO) 5.8 % (21-51); MEAN CORPUSCULAR HEMOGLOBIN 26.2 PG (27.0-31.0); MEAN CORPUSCULAR HGB CONC 32.5 % (33.0-36.5); MEAN CORPUSCULAR VOLUME 80.8 FL (78-98); MEAN PLATELET VOLUME 6.2 FL (7.4-10.4); MONOCYTES # (AUTO) 0.6 X10'3 (0-0.9); MONOCYTES % (AUTO) 5.7 % (2-12); NEUTROPHILS # (AUTO) 8.7 X10'3 (1.8-7.7); NEUTROPHILS % (AUTO) 85.9 % (42-75); PLATELET COUNT 362 X10'3 (140-440); RED BLOOD COUNT 2.98 X10'6 (4.20-5.60); RED CELL DISTRIBUTION WIDTH 17.2 % (11.5-14.5); WHITE BLOOD COUNT 10.1 X10'3 (4.5-11.0)
[2017-08-25 14:47] LABS: PROTHROMBIN TIME 10.6 SECONDS (9.0-12.0)
[2017-08-25 14:56] LABS: ALANINE AMINOTRANSFERASE 12 U/L (12-78); ALBUMIN 1.9 G/DL (3.4-5.0); ALBUMIN/GLOBULIN RATIO 0.4 (1.1-1.5); ALKALINE PHOSPHATASE 95 IU/L (46-116); ANION GAP 13 (8-16); ASPARTATE AMINO TRANSFERASE 10 U/L (10-37); BILIRUBIN,TOTAL 0.3 MG/DL (0.1-1.0); BLOOD UREA NITROGEN 64 MG/DL (7-18); BUN/CREATININE RATIO 6.1 (6.6-38.0); CALCIUM 8.7 MG/DL (8.5-10.1); CHLORIDE 94 MMOL/L (99-107); CREATININE 10.42 MG/DL (0.40-0.90); GLUCOSE 216 MG/DL (70-104); LIPASE < 50 U/L (73-393); POTASSIUM 5.1 MMOL/L (3.5-5.1); SODIUM 133 MMOL/L (135-145); TOTAL PROTEIN 6.2 G/DL (6.4-8.2); eGFR 4 ML/MIN
[2017-08-25] MEDS ORDERED: CefTRIAXone 2gm/D5W 50ml 50 ML IV ONE (15:55)
[2017-08-25] MEDS ORDERED: azithromycin/NS 500mg/250ml 250 ML IV ONE (15:55)
[2017-08-25] MEDS ORDERED: vancomycin inj 1,000 MG in normal saline 250ml IV soln 250 ML IV STA (15:56)
[2017-08-25] MEDS ORDERED: vancomycin/NS 1 GM ADD-VANTAGE 250 ML IV STA (16:08)
[2017-08-25 16:46] LABS: CLARITY,URINE CLOUDY (Clear); COLOR,URINE YELLOW (Yellow); GLUCOSE, URINE NEGATIVE (Neg); KETONES,URINE NEGATIVE (Neg); LEUKOCYTE ESTERASE ,URINE LARGE (Neg); NITRITES, URINE NEGATIVE (Neg); OCCULT BLOOD,URINE LARGE (Neg); PROTEIN,URINE >=300 mg/dl (Neg); UROBILINOGEN,URINE 0.2 E.U/dL (0.2-1.0)
[2017-08-25 16:52] LABS: UA COLLECTION TYPE FOLEY CATH
[2017-08-25 16:55] LABS: BACTERIA,URINE 4+ /HPF (Neg); MUCUS STRANDS FEW /LPF (Neg); RBC,URINE 20-50 /HPF (0-2); RENAL CELLS, URINE MODERATE /HPF; SQUAMOUS EPITHELIAL CELL,UR MODERATE /LPF (FEW); TRANSITIONAL EPI CELLS,URINE FEW /HPF; WBC,URINE TNTC /HPF (0-4); YEAST MODERATE /HPF (NEGATIVE)
[2017-08-25 18:02] LABS: ANISOCYTOSIS 2+; MICROCYTOSIS 1+; PLATELET ESTIMATE NORMAL; TOTAL CELLS COUNTED 100
[2017-08-25] MEDS: linezolid 600mg/300ml PREMIX 300 ML IV SCH ×2 (18:15→22:06)
[2017-08-25 20:50] VITALS: BP 139/60
[2017-08-25 23:00] VITALS: BP 157/76
[2017-08-26] MEDS: heparin, porcine 5000 units/ml vial SQ SCH ×4 (01:01→23:39)
[2017-08-26 03:00] VITALS: BP 154/67
[2017-08-26 05:26] LABS: BASOPHILS # (AUTO) 0.1 X10'3 (0-0.2); BASOPHILS % (AUTO) 0.6 % (0-1); EOSINOPHILS # (AUTO) 0.3 X10'3 (0-0.9); EOSINOPHILS % (AUTO) 2.7 % (0-6); HEMOGLOBIN 7.5 g/dl (12.0-16.0); LYMPHOCYTES # (AUTO) 0.5 X10'3 (1.1-4.8); LYMPHOCYTES % (AUTO) 5.5 % (21-51); MEAN CORPUSCULAR HEMOGLOBIN 26.5 PG (27.0-31.0); MEAN CORPUSCULAR HGB CONC 32.6 % (33.0-36.5); MEAN CORPUSCULAR VOLUME 81.2 FL (78-98); MEAN PLATELET VOLUME 6.7 FL (7.4-10.4); MONOCYTES # (AUTO) 0.7 X10'3 (0-0.9); MONOCYTES % (AUTO) 7.2 % (2-12); NEUTROPHILS # (AUTO) 8.1 X10'3 (1.8-7.7); PLATELET COUNT 411 X10'3 (140-440); RED BLOOD COUNT 2.83 X10'6 (4.20-5.60); RED CELL DISTRIBUTION WIDTH 17.2 % (11.5-14.5); WHITE BLOOD COUNT 9.7 X10'3 (4.5-11.0)
[2017-08-26 05:48] LABS: PARTIAL THROMBOPLASTIN TIME 34 SECONDS (22-32); PROTHROMBIN TIME 10.7 SECONDS (9.0-12.0)
[2017-08-26 06:06] LABS: ALANINE AMINOTRANSFERASE 10 U/L (12-78); ALBUMIN 1.8 G/DL (3.4-5.0); ALBUMIN/GLOBULIN RATIO 0.4 (1.1-1.5); ALKALINE PHOSPHATASE 90 IU/L (46-116); ANION GAP 14 (8-16); ASPARTATE AMINO TRANSFERASE 7 U/L (10-37); BILIRUBIN,TOTAL 0.2 MG/DL (0.1-1.0); BLOOD UREA NITROGEN 59 MG/DL (7-18); CALCIUM 8.2 MG/DL (8.5-10.1); CHLORIDE 96 MMOL/L (99-107); CHOL/HDL RATIO 4.5 (0.00-4.99); CHOLESTEROL 177 MG/DL (0-200); CREATININE 9.78 MG/DL (0.40-0.90); GLUCOSE 244 MG/DL (70-104); HDL CHOLESTEROL 39 MG/DL (35-60); LDL CHOLESTEROL 105 MG/DL (50-100); PHOSPHORUS 7.5 MG/DL (2.3-4.5); POTASSIUM 4.8 MMOL/L (3.5-5.1); SODIUM 135 MMOL/L (135-145); TOTAL PROTEIN 5.9 G/DL (6.4-8.2); TRIGLYCERIDES 150 MG/DL (20-135); eGFR 4 ML/MIN
[2017-08-26 07:00] VITALS: BP 168/73
[2017-08-26] MEDS: linezolid 600mg tablet PO SCH ×2 (08:32→20:37)
[2017-08-26] MEDS: lactobacillus rhamnosus 10,000 MMU CELLS/CAPSULE PO SCH ×2 (08:32→20:37)
[2017-08-26] MEDS ORDERED: nitroGLYCERIN 0.4mg SUBLingual tab SL PRN (09:00)
[2017-08-26] MEDS ORDERED: simethicone 80mg chew tab PO PRN (09:00)
[2017-08-26] MEDS ORDERED: glucagon, human recombinant 1mg kit SUBCUT PRN (09:05)
[2017-08-26] MEDS ORDERED: dextrose 50%-water 50ml dispensing syringe IV PRN ×2 (09:05)
[2017-08-26] MEDS ORDERED: dextrose ORAL solution 15 GM/59 ML bottle PO PRN ×2 (09:05)
[2017-08-26] MEDS ORDERED: insulin regular, human vial - multi-dose SQ SCH (09:05)
[2017-08-26] MEDS ORDERED: MESSAGE TO PHARMACY PO ONE (09:05)
[2017-08-26 11:00] VITALS: BP 149/57
[2017-08-26] MEDS: insulin Lispro (HumaLOG) vial - multi-dose SQ SCH (14:16)
[2017-08-26 15:00] VITALS: BP 167/70
[2017-08-26 19:00] VITALS: BP 155/56
[2017-08-26] MEDS: gabapentin 100mg capsule PO SCH (20:37)
[2017-08-26] MEDS: atorvastatin 10mg tablet PO SCH (20:39)
[2017-08-26] MEDS: carVEDilol 12.5mg tablet PO SCH (20:39)
[2017-08-26] MEDS ORDERED: albuterol 2.5 MG/3 ML nebule ONE (22:58)
[2017-08-26 23:00] VITALS: BP 165/74
[2017-08-26] MEDS: acetaminophen w/codeine (30MG) #3 tablet PO PRN (23:38)
[2017-08-27] VITALS (11 sets, daily range): BP systolic 138–172; BP diastolic 46–75
[2017-08-27 05:43] LABS: BASOPHILS % (AUTO) 0.5 % (0-1); EOSINOPHILS # (AUTO) 0.2 X10'3 (0-0.9); EOSINOPHILS % (AUTO) 2.4 % (0-6); LYMPHOCYTES # (AUTO) 0.7 X10'3 (1.1-4.8); LYMPHOCYTES % (AUTO) 9.5 % (21-51); MEAN CORPUSCULAR HEMOGLOBIN 26.3 PG (27.0-31.0); MEAN CORPUSCULAR HGB CONC 32.5 % (33.0-36.5); MEAN PLATELET VOLUME 6.9 FL (7.4-10.4); MONOCYTES # (AUTO) 0.7 X10'3 (0-0.9); MONOCYTES % (AUTO) 9.3 % (2-12); NEUTROPHILS # (AUTO) 5.8 X10'3 (1.8-7.7); NEUTROPHILS % (AUTO) 78.3 % (42-75); PLATELET COUNT 328 X10'3 (140-440); RED BLOOD COUNT 2.58 X10'6 (4.20-5.60); WHITE BLOOD COUNT 7.4 X10'3 (4.5-11.0)
[2017-08-27 05:55] LABS: PARTIAL THROMBOPLASTIN TIME 35 SECONDS (22-32); PROTHROMBIN TIME 10.7 SECONDS (9.0-12.0)
[2017-08-27 06:11] LABS: HEMATOCRIT 20.9 % (35.0-45.0); HEMOGLOBIN 6.8 g/dl (12.0-16.0)
[2017-08-27 06:14] LABS: ALANINE AMINOTRANSFERASE 10 U/L (12-78); ALBUMIN 1.5 G/DL (3.4-5.0); ALBUMIN/GLOBULIN RATIO 0.4 (1.1-1.5); ALKALINE PHOSPHATASE 92 IU/L (46-116); ANION GAP 12 (8-16); ASPARTATE AMINO TRANSFERASE 7 U/L (10-37); BILIRUBIN,TOTAL 0.2 MG/DL (0.1-1.0); BLOOD UREA NITROGEN 55 MG/DL (7-18); BUN/CREATININE RATIO 5.6 (6.6-38.0); CHLORIDE 99 MMOL/L (99-107); CREATININE 9.76 MG/DL (0.40-0.90); GLUCOSE 250 MG/DL (70-104); MAGNESIUM 1.7 MG/DL (1.5-2.4); PHOSPHORUS 7.2 MG/DL (2.3-4.5); POTASSIUM 4.1 MMOL/L (3.5-5.1); SODIUM 138 MMOL/L (135-145); TOTAL CARBON DIOXIDE 27.4 MMOL/L (24-32); TOTAL PROTEIN 5.1 G/DL (6.4-8.2); eGFR 4 ML/MIN
[2017-08-27] MEDS: levoFLOXACIN 250mg tablet PO SCH (07:20)
[2017-08-27] MEDS: heparin, porcine 5000 units/ml vial SQ SCH ×2 (07:20→16:20)
[2017-08-27] MEDS: linezolid 600mg tablet PO SCH ×2 (07:20→19:22)
[2017-08-27] MEDS: carVEDilol 12.5mg tablet PO SCH ×2 (07:20→19:22)
[2017-08-27] MEDS: lactobacillus rhamnosus 10,000 MMU CELLS/CAPSULE PO SCH ×2 (07:20→19:22)
[2017-08-27] MEDS: aspirin 81mg tab.chew PO SCH (07:20)
[2017-08-27] MEDS ORDERED: levoFLOXACIN-Levaquin 250mg/D5 50 ML IV SCH (08:00)
[2017-08-27] MEDS: insulin Lispro (HumaLOG) vial - multi-dose SQ SCH ×2 (09:07→19:27)
[2017-08-27 14:55] LABS: HEMATOCRIT 24.7 % (35.0-45.0); HEMOGLOBIN 8.1 g/dl (12.0-16.0); MEAN CORPUSCULAR HGB CONC 32.9 % (33.0-36.5); MEAN CORPUSCULAR VOLUME 82.1 FL (78-98); MEAN PLATELET VOLUME 6.4 FL (7.4-10.4); PLATELET COUNT 344 X10'3 (140-440); RED BLOOD COUNT 3.01 X10'6 (4.20-5.60); RED CELL DISTRIBUTION WIDTH 17.2 % (11.5-14.5); WHITE BLOOD COUNT 7.5 X10'3 (4.5-11.0)
[2017-08-27] MEDS: proMETHazine 25mg tablet PO PRN (16:27)
[2017-08-27] MEDS: acetaminophen w/codeine (30MG) #3 tablet PO PRN (16:27)
[2017-08-27] MEDS: gabapentin 100mg capsule PO SCH (20:33)
[2017-08-27] MEDS: albuterol 2.5 MG/3 ML nebule NEB PRN (20:35)
[2017-08-27] MEDS: atorvastatin 10mg tablet PO SCH (20:35)
[2017-08-27] MEDS ORDERED: insulin glargine (Lantus) pen - multi-dose SQ ONE (21:00)
[2017-08-27] MEDS: insulin glargine (Lantus) pen - multi-dose SQ SCH (22:21)
[2017-08-28] MEDS: heparin, porcine 5000 units/ml vial SQ SCH ×4 (00:57→23:34)
[2017-08-28 06:00] VITALS: BP 175/60
[2017-08-28] MEDS: aspirin 81mg tab.chew PO SCH (07:48)
[2017-08-28] MEDS: lactobacillus rhamnosus 10,000 MMU CELLS/CAPSULE PO SCH ×2 (07:48→21:39)
[2017-08-28] MEDS: carVEDilol 12.5mg tablet PO SCH ×2 (07:48→21:39)
[2017-08-28] MEDS: acetaminophen w/codeine (30MG) #3 tablet PO PRN (07:52)
[2017-08-28] MEDS: linezolid 600mg tablet PO SCH ×2 (07:52→21:39)
[2017-08-28 09:14] LABS: BASOPHILS % (AUTO) 0.4 % (0-1); EOSINOPHILS # (AUTO) 0.2 X10'3 (0-0.9); EOSINOPHILS % (AUTO) 2.9 % (0-6); HEMATOCRIT 23.1 % (35.0-45.0); HEMOGLOBIN 7.6 g/dl (12.0-16.0); LYMPHOCYTES # (AUTO) 0.6 X10'3 (1.1-4.8); LYMPHOCYTES % (AUTO) 8.9 % (21-51); MEAN CORPUSCULAR HEMOGLOBIN 27.1 PG (27.0-31.0); MEAN CORPUSCULAR HGB CONC 32.8 % (33.0-36.5); MEAN CORPUSCULAR VOLUME 82.4 FL (78-98); MEAN PLATELET VOLUME 6.7 FL (7.4-10.4); MONOCYTES # (AUTO) 0.7 X10'3 (0-0.9); MONOCYTES % (AUTO) 10.6 % (2-12); NEUTROPHILS # (AUTO) 5.4 X10'3 (1.8-7.7); NEUTROPHILS % (AUTO) 77.2 % (42-75); PLATELET COUNT 344 X10'3 (140-440); RED CELL DISTRIBUTION WIDTH 17.5 % (11.5-14.5)
[2017-08-28 09:23] LABS: INR 1.1 INR; PARTIAL THROMBOPLASTIN TIME 33 SECONDS (22-32)
[2017-08-28 09:35] LABS: ALANINE AMINOTRANSFERASE 6 U/L (12-78); ALBUMIN 1.5 G/DL (3.4-5.0); ALBUMIN/GLOBULIN RATIO 0.4 (1.1-1.5); ALKALINE PHOSPHATASE 76 IU/L (46-116); ANION GAP 12 (8-16); ASPARTATE AMINO TRANSFERASE 6 U/L (10-37); BILIRUBIN,TOTAL 0.3 MG/DL (0.1-1.0); BLOOD UREA NITROGEN 54 MG/DL (7-18); BUN/CREATININE RATIO 5.4 (6.6-38.0); CHLORIDE 100 MMOL/L (99-107); CREATININE 9.94 MG/DL (0.40-0.90); GLUCOSE 141 MG/DL (70-104); MAGNESIUM 1.9 MG/DL (1.5-2.4); PHOSPHORUS 7.2 MG/DL (2.3-4.5); POTASSIUM 4.2 MMOL/L (3.5-5.1); SODIUM 138 MMOL/L (135-145); TOTAL CARBON DIOXIDE 26.4 MMOL/L (24-32); TOTAL PROTEIN 5.1 G/DL (6.4-8.2); eGFR 4 ML/MIN
[2017-08-28 11:00] VITALS: BP 142/53
[2017-08-28] MEDS ORDERED: albuterol 2.5 MG/3 ML nebule NEB PRN (13:15)
[2017-08-28 15:00] VITALS: BP 155/55
[2017-08-28 19:00] VITALS: BP 175/70
[2017-08-28] MEDS: gabapentin 100mg capsule PO SCH (21:39)
[2017-08-28] MEDS: furosemide 40mg tablet PO SCH (21:39)
[2017-08-28] MEDS: atorvastatin 10mg tablet PO SCH (21:39)
[2017-08-28] MEDS: proMETHazine 25mg tablet PO PRN (21:39)
[2017-08-28 23:00] VITALS: BP 179/61
[2017-08-29 03:00] VITALS: BP 176/53
[2017-08-29 05:31] LABS: BASOPHILS % (AUTO) 0.4 % (0-1); EOSINOPHILS # (AUTO) 0.2 X10'3 (0-0.9); EOSINOPHILS % (AUTO) 2.9 % (0-6); HEMATOCRIT 25.3 % (35.0-45.0); HEMOGLOBIN 8.2 g/dl (12.0-16.0); LYMPHOCYTES # (AUTO) 0.7 X10'3 (1.1-4.8); LYMPHOCYTES % (AUTO) 9.8 % (21-51); MEAN CORPUSCULAR HEMOGLOBIN 26.8 PG (27.0-31.0); MEAN CORPUSCULAR HGB CONC 32.3 % (33.0-36.5); MEAN PLATELET VOLUME 6.6 FL (7.4-10.4); MONOCYTES # (AUTO) 0.6 X10'3 (0-0.9); MONOCYTES % (AUTO) 8.9 % (2-12); NEUTROPHILS # (AUTO) 5.3 X10'3 (1.8-7.7); PLATELET COUNT 356 X10'3 (140-440); RED BLOOD COUNT 3.05 X10'6 (4.20-5.60); RED CELL DISTRIBUTION WIDTH 17.6 % (11.5-14.5); WHITE BLOOD COUNT 6.9 X10'3 (4.5-11.0)
[2017-08-29 05:32] LABS: PROTHROMBIN TIME 10.2 SECONDS (9.0-12.0)
[2017-08-29 06:00] VITALS: BP 184/54
[2017-08-29 06:12] LABS: ALANINE AMINOTRANSFERASE 9 U/L (12-78); ALBUMIN 1.6 G/DL (3.4-5.0); ALBUMIN/GLOBULIN RATIO 0.4 (1.1-1.5); ALKALINE PHOSPHATASE 81 IU/L (46-116); ANION GAP 13 (8-16); ASPARTATE AMINO TRANSFERASE 9 U/L (10-37); BILIRUBIN,TOTAL 0.3 MG/DL (0.1-1.0); BLOOD UREA NITROGEN 52 MG/DL (7-18); BUN/CREATININE RATIO 5.4 (6.6-38.0); CALCIUM 8.7 MG/DL (8.5-10.1); CHLORIDE 100 MMOL/L (99-107); CREATININE 9.57 MG/DL (0.40-0.90); GLUCOSE 203 MG/DL (70-104); MAGNESIUM 1.9 MG/DL (1.5-2.4); PHOSPHORUS 6.7 MG/DL (2.3-4.5); POTASSIUM 4.2 MMOL/L (3.5-5.1); SODIUM 139 MMOL/L (135-145); TOTAL CARBON DIOXIDE 25.8 MMOL/L (24-32); TOTAL PROTEIN 5.5 G/DL (6.4-8.2); eGFR 4 ML/MIN
[2017-08-29] MEDS: lactobacillus rhamnosus 10,000 MMU CELLS/CAPSULE PO SCH ×2 (09:04→19:21)
[2017-08-29] MEDS: levoFLOXACIN 250mg tablet PO SCH (09:04)
[2017-08-29] MEDS: aspirin 81mg tab.chew PO SCH (09:04)
[2017-08-29] MEDS: carVEDilol 12.5mg tablet PO SCH ×2 (09:05→19:21)
[2017-08-29] MEDS: furosemide 40mg tablet PO SCH ×2 (09:05→19:22)
[2017-08-29] MEDS: pantoprazole 40mg Tablet.DR PO SCH (09:05)
[2017-08-29] MEDS: linezolid 600mg tablet PO SCH ×2 (09:06→19:21)
[2017-08-29] MEDS: NIFEdipine XL 30mg tablet PO SCH (09:06)
[2017-08-29] MEDS: proMETHazine 25mg tablet PO PRN ×2 (09:06→20:48)
[2017-08-29] MEDS: heparin, porcine 5000 units/ml vial SQ SCH ×3 (09:09→23:09)
[2017-08-29 11:00] VITALS: BP 118/38
[2017-08-29] MEDS: acetaminophen w/codeine (30MG) #3 tablet PO PRN ×3 (13:35→23:54)
[2017-08-29] MEDS: nystatin 15 GM powder TP SCH ×2 (13:35→20:51)
[2017-08-29 15:00] VITALS: BP 125/46
[2017-08-29] MEDS: ondansetron/PF 4mg/2ml inj IV PRN ×2 (17:03→23:08)
[2017-08-29 19:00] VITALS: BP 152/58
[2017-08-29] MEDS: atorvastatin 10mg tablet PO SCH (20:47)
[2017-08-29] MEDS: gabapentin 100mg capsule PO SCH (20:48)
[2017-08-29] MEDS: insulin glargine (Lantus) pen - multi-dose SQ SCH (21:00)
[2017-08-29 23:00] VITALS: BP 150/67
[2017-08-29] MEDS: albuterol 2.5 MG/3 ML nebule NEB PRN (23:57)
[2017-08-30] MEDS: insulin Lispro (HumaLOG) vial - multi-dose SQ SCH (02:55)
[2017-08-30 03:00] VITALS: BP 153/47
[2017-08-30 06:00] VITALS: BP 182/67
[2017-08-30 06:34] LABS: PROTHROMBIN TIME 10.6 SECONDS (9.0-12.0)
[2017-08-30 06:54] LABS: BASOPHILS % (AUTO) 0.3 % (0-1); EOSINOPHILS # (AUTO) 0.2 X10'3 (0-0.9); EOSINOPHILS % (AUTO) 3.6 % (0-6); HEMATOCRIT 23.3 % (35.0-45.0); HEMOGLOBIN 7.7 g/dl (12.0-16.0); LYMPHOCYTES # (AUTO) 0.6 X10'3 (1.1-4.8); LYMPHOCYTES % (AUTO) 9.6 % (21-51); MEAN PLATELET VOLUME 6.6 FL (7.4-10.4); MONOCYTES # (AUTO) 0.6 X10'3 (0-0.9); MONOCYTES % (AUTO) 8.8 % (2-12); NEUTROPHILS # (AUTO) 4.9 X10'3 (1.8-7.7); NEUTROPHILS % (AUTO) 77.7 % (42-75); PLATELET COUNT 323 X10'3 (140-440); RED BLOOD COUNT 2.85 X10'6 (4.20-5.60); RED CELL DISTRIBUTION WIDTH 17.3 % (11.5-14.5); WHITE BLOOD COUNT 6.3 X10'3 (4.5-11.0)
[2017-08-30 07:22] LABS: ALANINE AMINOTRANSFERASE 7 U/L (12-78); ALBUMIN 1.6 G/DL (3.4-5.0); ALBUMIN/GLOBULIN RATIO 0.5 (1.1-1.5); ALKALINE PHOSPHATASE 70 IU/L (46-116); ANION GAP 13 (8-16); ASPARTATE AMINO TRANSFERASE 9 U/L (10-37); BILIRUBIN,TOTAL 0.3 MG/DL (0.1-1.0); BLOOD UREA NITROGEN 49 MG/DL (7-18); BUN/CREATININE RATIO 5.2 (6.6-38.0); CALCIUM 8.6 MG/DL (8.5-10.1); CHLORIDE 99 MMOL/L (99-107); CREATININE 9.49 MG/DL (0.40-0.90); GLUCOSE 166 MG/DL (70-104); MAGNESIUM 1.9 MG/DL (1.5-2.4); PHOSPHORUS 6.5 MG/DL (2.3-4.5); POTASSIUM 4.1 MMOL/L (3.5-5.1); SODIUM 137 MMOL/L (135-145); TOTAL PROTEIN 5.1 G/DL (6.4-8.2); eGFR 4 ML/MIN
[2017-08-30] MEDS: ondansetron/PF 4mg/2ml inj IV PRN ×2 (07:46→19:59)
[2017-08-30] MEDS: NIFEdipine XL 30mg tablet PO SCH (08:00)
[2017-08-30] MEDS: carVEDilol 12.5mg tablet PO SCH ×2 (08:01→19:46)
[2017-08-30] MEDS: aspirin 81mg tab.chew PO SCH (08:01)
[2017-08-30] MEDS: nystatin 15 GM powder TP SCH ×3 (08:01→19:47)
[2017-08-30] MEDS: furosemide 40mg tablet PO SCH ×2 (08:01→19:46)
[2017-08-30] MEDS: lactobacillus rhamnosus 10,000 MMU CELLS/CAPSULE PO SCH ×2 (08:01→19:46)
[2017-08-30] MEDS: heparin, porcine 5000 units/ml vial SQ SCH ×2 (08:01→17:00)
[2017-08-30] MEDS: pantoprazole 40mg Tablet.DR PO SCH (08:01)
[2017-08-30 11:00] VITALS: BP 157/48
[2017-08-30 13:17] LABS: CLARITY,URINE TURBID (Clear); COLOR,URINE YELLOW (Yellow); GLUCOSE, URINE 250 mg/dl (Neg); KETONES,URINE NEGATIVE (Neg); LEUKOCYTE ESTERASE ,URINE LARGE (Neg); NITRITES, URINE NEGATIVE (Neg); OCCULT BLOOD,URINE MODERATE (Neg); PH,URINE 6.5 (4.8-8.0); PROTEIN,URINE >=300 mg/dl (Neg); UROBILINOGEN,URINE 0.2 E.U/dL (0.2-1.0)
[2017-08-30 13:20] LABS: UA COLLECTION TYPE FOLEY CATH
[2017-08-30 13:28] LABS: BACTERIA,URINE 4+ /HPF (Neg); MUCUS STRANDS NONE SEEN /LPF (Neg); SQUAMOUS EPITHELIAL CELL,UR FEW /LPF (FEW); WBC,URINE TNTC /HPF (0-4)
[2017-08-30] MEDS: linezolid 600mg tablet PO SCH ×2 (13:37→19:46)
[2017-08-30] MEDS: proMETHazine 25mg tablet PO PRN (13:37)
[2017-08-30 15:00] VITALS: BP 132/60
[2017-08-30 18:00] VITALS: BP 126/42
[2017-08-30] MEDS: atorvastatin 10mg tablet PO SCH (19:46)
[2017-08-30] MEDS: gabapentin 100mg capsule PO SCH (19:46)
[2017-08-30] MEDS: albuterol 2.5 MG/3 ML nebule NEB PRN (20:47)
[2017-08-30] MEDS: insulin glargine (Lantus) pen - multi-dose SQ SCH (21:00)
[2017-08-30 22:00] VITALS: BP 153/67
[2017-08-30] MEDS ORDERED: proCHLORperazine 10 MG/2 ml inj IV ONE (23:20)
[2017-08-31] MEDS: heparin, porcine 5000 units/ml vial SQ SCH ×3 (00:09→16:00)
[2017-08-31 02:00] VITALS: BP 152/50
[2017-08-31] MEDS: ondansetron/PF 4mg/2ml inj IV PRN ×3 (02:16→20:56)
[2017-08-31 05:31] LABS: BASOPHILS % (AUTO) 0.4 % (0-1); EOSINOPHILS # (AUTO) 0.2 X10'3 (0-0.9); EOSINOPHILS % (AUTO) 2.7 % (0-6); HEMOGLOBIN 7.7 g/dl (12.0-16.0); LYMPHOCYTES # (AUTO) 0.5 X10'3 (1.1-4.8); LYMPHOCYTES % (AUTO) 8.1 % (21-51); MEAN CORPUSCULAR HEMOGLOBIN 27.2 PG (27.0-31.0); MEAN CORPUSCULAR HGB CONC 33.2 % (33.0-36.5); MEAN PLATELET VOLUME 6.4 FL (7.4-10.4); MONOCYTES # (AUTO) 0.4 X10'3 (0-0.9); MONOCYTES % (AUTO) 5.9 % (2-12); NEUTROPHILS # (AUTO) 5.2 X10'3 (1.8-7.7); NEUTROPHILS % (AUTO) 82.9 % (42-75); PLATELET COUNT 299 X10'3 (140-440); RED BLOOD COUNT 2.81 X10'6 (4.20-5.60); RED CELL DISTRIBUTION WIDTH 16.9 % (11.5-14.5); WHITE BLOOD COUNT 6.2 X10'3 (4.5-11.0)
[2017-08-31 05:40] LABS: PROTHROMBIN TIME 10.7 SECONDS (9.0-12.0)
[2017-08-31 05:48] LABS: ALANINE AMINOTRANSFERASE 6 U/L (12-78); ALBUMIN 1.6 G/DL (3.4-5.0); ALBUMIN/GLOBULIN RATIO 0.4 (1.1-1.5); ALKALINE PHOSPHATASE 74 IU/L (46-116); ANION GAP 11 (8-16); ASPARTATE AMINO TRANSFERASE 8 U/L (10-37); BILIRUBIN,TOTAL 0.2 MG/DL (0.1-1.0); BLOOD UREA NITROGEN 47 MG/DL (7-18); BUN/CREATININE RATIO 4.9 (6.6-38.0); CALCIUM 8.6 MG/DL (8.5-10.1); CHLORIDE 100 MMOL/L (99-107); CREATININE 9.52 MG/DL (0.40-0.90); GLUCOSE 214 MG/DL (70-104); MAGNESIUM 1.9 MG/DL (1.5-2.4); PHOSPHORUS 6.7 MG/DL (2.3-4.5); SODIUM 139 MMOL/L (135-145); TOTAL CARBON DIOXIDE 28.3 MMOL/L (24-32); TOTAL PROTEIN 5.2 G/DL (6.4-8.2); eGFR 4 ML/MIN
[2017-08-31 06:00] VITALS: BP 185/44
[2017-08-31] MEDS: proMETHazine 25mg tablet PO PRN (07:33)
[2017-08-31] MEDS: levoFLOXACIN 250mg tablet PO SCH (09:02)
[2017-08-31] MEDS: linezolid 600mg tablet PO SCH ×2 (09:02→20:05)
[2017-08-31] MEDS: pantoprazole 40mg Tablet.DR PO SCH (09:02)
[2017-08-31] MEDS: carVEDilol 12.5mg tablet PO SCH ×2 (09:02→20:05)
[2017-08-31] MEDS: NIFEdipine XL 30mg tablet PO SCH (09:02)
[2017-08-31] MEDS: furosemide 40mg tablet PO SCH ×2 (09:02→20:05)
[2017-08-31] MEDS: lactobacillus rhamnosus 10,000 MMU CELLS/CAPSULE PO SCH ×2 (09:02→20:05)
[2017-08-31] MEDS: aspirin 81mg tab.chew PO SCH (09:02)
[2017-08-31] MEDS: nystatin 15 GM powder TP SCH ×3 (10:45→20:05)
[2017-08-31 11:00] VITALS: BP 158/61
[2017-08-31 15:00] VITALS: BP 120/53
[2017-08-31 18:00] VITALS: BP 162/59
[2017-08-31] MEDS: gabapentin 100mg capsule PO SCH (20:05)
[2017-08-31] MEDS: atorvastatin 10mg tablet PO SCH (20:05)
[2017-08-31] MEDS: insulin glargine (Lantus) pen - multi-dose SQ SCH (21:00)
[2017-08-31 22:00] VITALS: BP 132/47
[2017-09-01] MEDS: heparin, porcine 5000 units/ml vial SQ SCH ×3 (00:50→16:57)
[2017-09-01 02:00] VITALS: BP 152/78
[2017-09-01] MEDS: albuterol 2.5 MG/3 ML nebule NEB PRN ×2 (04:30→20:48)
[2017-09-01 06:55] VITALS: BP 122/52
[2017-09-01 07:55] LABS: BASOPHILS % (AUTO) 0.3 % (0-1); EOSINOPHILS # (AUTO) 0.2 X10'3 (0-0.9); EOSINOPHILS % (AUTO) 2.6 % (0-6); HEMATOCRIT 23.7 % (35.0-45.0); HEMOGLOBIN 7.7 g/dl (12.0-16.0); LYMPHOCYTES # (AUTO) 0.6 X10'3 (1.1-4.8); LYMPHOCYTES % (AUTO) 10.4 % (21-51); MEAN CORPUSCULAR HEMOGLOBIN 26.9 PG (27.0-31.0); MEAN CORPUSCULAR HGB CONC 32.4 % (33.0-36.5); MEAN CORPUSCULAR VOLUME 82.9 FL (78-98); MEAN PLATELET VOLUME 5.8 FL (7.4-10.4); MONOCYTES # (AUTO) 0.4 X10'3 (0-0.9); MONOCYTES % (AUTO) 7.5 % (2-12); NEUTROPHILS # (AUTO) 4.7 X10'3 (1.8-7.7); NEUTROPHILS % (AUTO) 79.2 % (42-75); PLATELET COUNT 280 X10'3 (140-440); RED BLOOD COUNT 2.87 X10'6 (4.20-5.60); RED CELL DISTRIBUTION WIDTH 17.5 % (11.5-14.5)
[2017-09-01] MEDS: ondansetron/PF 4mg/2ml inj IV PRN (08:04)
[2017-09-01] MEDS: acetaminophen w/codeine (30MG) #3 tablet PO PRN ×2 (08:04→20:41)
[2017-09-01] MEDS: pantoprazole 40mg Tablet.DR PO SCH (08:04)
[2017-09-01] MEDS: lactobacillus rhamnosus 10,000 MMU CELLS/CAPSULE PO SCH ×2 (08:05→20:39)
[2017-09-01] MEDS: aspirin 81mg tab.chew PO SCH (08:05)
[2017-09-01] MEDS: furosemide 40mg tablet PO SCH ×2 (08:05→20:00)
[2017-09-01] MEDS: carVEDilol 12.5mg tablet PO SCH ×2 (08:05→20:00)
[2017-09-01 08:10] LABS: ALANINE AMINOTRANSFERASE 6 U/L (12-78); ALBUMIN 1.6 G/DL (3.4-5.0); ALBUMIN/GLOBULIN RATIO 0.4 (1.1-1.5); ALKALINE PHOSPHATASE 75 IU/L (46-116); ANION GAP 8 (8-16); ASPARTATE AMINO TRANSFERASE 6 U/L (10-37); BILIRUBIN,TOTAL 0.2 MG/DL (0.1-1.0); BLOOD UREA NITROGEN 46 MG/DL (7-18); BUN/CREATININE RATIO 4.8 (6.6-38.0); CALCIUM 8.3 MG/DL (8.5-10.1); CHLORIDE 102 MMOL/L (99-107); GLUCOSE 186 MG/DL (70-104); MAGNESIUM 1.8 MG/DL (1.5-2.4); SODIUM 140 MMOL/L (135-145); TOTAL CARBON DIOXIDE 30.4 MMOL/L (24-32); TOTAL PROTEIN 5.2 G/DL (6.4-8.2); eGFR 4 ML/MIN
[2017-09-01] MEDS: nystatin 15 GM powder TP SCH ×3 (08:24→20:43)
[2017-09-01] MEDS: NIFEdipine XL 30mg tablet PO SCH (08:31)
[2017-09-01] MEDS: linezolid 600mg tablet PO SCH ×2 (08:31→21:19)
[2017-09-01 11:00] VITALS: BP 118/38
[2017-09-01] MEDS: fluconazole-Diflucan 100MG/NS 50 ML IV SCH (12:54)
[2017-09-01] MEDS: atorvastatin 10mg tablet PO SCH (20:40)
[2017-09-01] MEDS: proMETHazine 25mg tablet PO PRN (20:41)
[2017-09-01] MEDS: gabapentin 100mg capsule PO SCH (20:41)
[2017-09-01] MEDS: insulin glargine (Lantus) pen - multi-dose SQ SCH (21:18)
[2017-09-02] MEDS: heparin, porcine 5000 units/ml vial SQ SCH ×4 (00:28→20:16)
[2017-09-02] MEDS: acetaminophen w/codeine (30MG) #3 tablet PO PRN (01:41)
[2017-09-02 02:00] VITALS: BP 155/61
[2017-09-02 06:00] VITALS: BP 154/65
[2017-09-02 07:25] VITALS: BP 151/43
[2017-09-02] MEDS: lactobacillus rhamnosus 10,000 MMU CELLS/CAPSULE PO SCH ×2 (07:26→20:15)
[2017-09-02] MEDS: carVEDilol 12.5mg tablet PO SCH ×2 (07:26→20:00)
[2017-09-02] MEDS: aspirin 81mg tab.chew PO SCH (07:26)
[2017-09-02] MEDS: NIFEdipine XL 30mg tablet PO SCH (07:26)
[2017-09-02] MEDS: levoFLOXACIN 250mg tablet PO SCH (07:26)
[2017-09-02] MEDS: furosemide 40mg tablet PO SCH ×2 (07:26→20:00)
[2017-09-02] MEDS: pantoprazole 40mg Tablet.DR PO SCH (07:27)
[2017-09-02] MEDS: linezolid 600mg tablet PO SCH (07:27)
[2017-09-02] MEDS: nystatin 15 GM powder TP SCH ×3 (07:28→20:16)
[2017-09-02] MEDS: proMETHazine 25mg tablet PO PRN ×2 (07:30→16:25)
[2017-09-02 10:00] VITALS: BP 117/43
[2017-09-02] MEDS: fluconazole-Diflucan 100MG/NS 50 ML IV SCH (16:24)
[2017-09-02 18:00] VITALS: BP 127/40
[2017-09-02] MEDS: gabapentin 100mg capsule PO SCH (20:13)
[2017-09-02] MEDS: atorvastatin 10mg tablet PO SCH (20:15)
[2017-09-02] MEDS: insulin glargine (Lantus) pen - multi-dose SQ SCH (21:00)
[2017-09-02] MEDS: albuterol 2.5 MG/3 ML nebule NEB PRN (21:16)
[2017-09-02 22:00] VITALS: BP 130/43
[2017-09-03] MEDS: proMETHazine 25mg tablet PO PRN ×3 (01:48→20:47)
[2017-09-03] MEDS: acetaminophen w/codeine (30MG) #3 tablet PO PRN ×2 (01:49→21:57)
[2017-09-03] MEDS: albuterol 2.5 MG/3 ML nebule NEB PRN ×2 (05:21→22:15)
[2017-09-03 06:00] VITALS: BP 143/46
[2017-09-03] MEDS: lactobacillus rhamnosus 10,000 MMU CELLS/CAPSULE PO SCH ×2 (08:00→20:35)
[2017-09-03 09:18] VITALS: BP 140/57
[2017-09-03] MEDS: carVEDilol 12.5mg tablet PO SCH ×2 (09:20→20:00)
[2017-09-03] MEDS: aspirin 81mg tab.chew PO SCH (09:20)
[2017-09-03] MEDS: fluconazole-Diflucan 100MG/NS 50 ML IV SCH (09:20)
[2017-09-03] MEDS: furosemide 40mg tablet PO SCH ×2 (09:21→20:00)
[2017-09-03] MEDS: heparin, porcine 5000 units/ml vial SQ SCH ×2 (09:21→15:46)
[2017-09-03] MEDS: nystatin 15 GM powder TP SCH ×3 (09:21→21:00)
[2017-09-03] MEDS: pantoprazole 40mg Tablet.DR PO SCH (09:21)
[2017-09-03] MEDS: NIFEdipine XL 30mg tablet PO SCH (09:21)
[2017-09-03 10:05] VITALS: BP 140/57
[2017-09-03] MEDS: ondansetron/PF 4mg/2ml inj IV PRN (15:45)
[2017-09-03 18:00] VITALS: BP 109/53
[2017-09-03] MEDS: gabapentin 100mg capsule PO SCH (20:35)
[2017-09-03] MEDS: atorvastatin 10mg tablet PO SCH (20:35)
[2017-09-03] MEDS: diatr meglu/diatrizoate 30ml oral sol.-(3 dose) bottle PO SCH (20:41)
[2017-09-03] MEDS: insulin glargine (Lantus) pen - multi-dose SQ SCH (21:00)
[2017-09-03 22:00] VITALS: BP 130/56
[2017-09-04] MEDS: proMETHazine 25mg tablet PO PRN ×2 (02:52→20:13)
[2017-09-04] MEDS: acetaminophen w/codeine (30MG) #3 tablet PO PRN ×2 (02:52→21:47)
[2017-09-04 06:00] VITALS: BP 132/44
[2017-09-04] MEDS: nystatin 15 GM powder TP SCH ×3 (08:00→21:48)
[2017-09-04] MEDS: diatr meglu/diatrizoate 30ml oral sol.-(3 dose) bottle PO SCH ×2 (08:37→10:35)
[2017-09-04] MEDS: ondansetron/PF 4mg/2ml inj IV PRN ×2 (08:41→18:34)
[2017-09-04 11:20] VITALS: BP 161/59
[2017-09-04] MEDS: NIFEdipine XL 30mg tablet PO SCH (11:22)
[2017-09-04] MEDS: furosemide 40mg tablet PO SCH ×2 (11:22→20:00)
[2017-09-04] MEDS: carVEDilol 12.5mg tablet PO SCH ×2 (11:22→20:00)
[2017-09-04] MEDS: pantoprazole 40mg Tablet.DR PO SCH (11:22)
[2017-09-04] MEDS: heparin, porcine 5000 units/ml vial SQ SCH ×3 (11:22→16:26)
[2017-09-04] MEDS: aspirin 81mg tab.chew PO SCH (11:22)
[2017-09-04] MEDS: lactobacillus rhamnosus 10,000 MMU CELLS/CAPSULE PO SCH ×2 (11:22→20:12)
[2017-09-04] MEDS: fluconazole-Diflucan 100MG/NS 50 ML IV SCH (11:22)
[2017-09-04] MEDS: albuterol 2.5 MG/3 ML nebule NEB PRN ×2 (15:16→20:31)
[2017-09-04 18:30] VITALS: BP 122/83
[2017-09-04] MEDS: atorvastatin 10mg tablet PO SCH (20:12)
[2017-09-04] MEDS: gabapentin 100mg capsule PO SCH (20:12)
[2017-09-04 20:18] VITALS: BP 114/48
[2017-09-04] MEDS: insulin glargine (Lantus) pen - multi-dose SQ SCH (21:00)
[2017-09-04 22:30] VITALS: BP 132/48
[2017-09-05] MEDS: heparin, porcine 5000 units/ml vial SQ SCH ×3 (00:54→15:19)
[2017-09-05] MEDS: ondansetron/PF 4mg/2ml inj IV PRN ×4 (00:54→21:19)
[2017-09-05] MEDS: proMETHazine 25mg tablet PO PRN ×2 (04:45→12:34)
[2017-09-05 06:00] VITALS: BP 132/50
[2017-09-05] MEDS: acetaminophen w/codeine (30MG) #3 tablet PO PRN (07:20)
[2017-09-05] MEDS: aspirin 81mg tab.chew PO SCH (08:00)
[2017-09-05] MEDS: carVEDilol 12.5mg tablet PO SCH ×2 (08:00→23:18)
[2017-09-05] MEDS: pantoprazole 40mg Tablet.DR PO SCH (08:00)
[2017-09-05] MEDS: lactobacillus rhamnosus 10,000 MMU CELLS/CAPSULE PO SCH ×2 (08:00→23:18)
[2017-09-05] MEDS: fluconazole-Diflucan 100MG/NS 50 ML IV SCH ×2 (08:00→18:58)
[2017-09-05] MEDS: furosemide 40mg tablet PO SCH ×2 (08:00→23:18)
[2017-09-05] MEDS: NIFEdipine XL 30mg tablet PO SCH (08:00)
[2017-09-05] MEDS: nystatin 15 GM powder TP SCH ×3 (08:46→23:19)
[2017-09-05 10:00] VITALS: BP 159/51
[2017-09-05] MEDS ORDERED: fluconazole 100mg tablet PO SCH (16:23)
[2017-09-05 18:00] VITALS: BP 153/42
[2017-09-05] MEDS: proCHLORperazine 10 MG/2 ml inj IV PRN (19:51)
[2017-09-05] MEDS: insulin glargine (Lantus) pen - multi-dose SQ SCH (21:00)
[2017-09-05 22:00] VITALS: BP 148/43
[2017-09-05] MEDS: atorvastatin 10mg tablet PO SCH (23:18)
[2017-09-05] MEDS: gabapentin 100mg capsule PO SCH (23:18)
[2017-09-06] MEDS: heparin, porcine 5000 units/ml vial SQ SCH ×2 (00:40→07:03)
[2017-09-06] MEDS: albuterol 2.5 MG/3 ML nebule NEB PRN (01:02)
[2017-09-06] MEDS: proCHLORperazine 10 MG/2 ml inj IV PRN (02:35)
[2017-09-06 05:00] VITALS: BP 153/55
[2017-09-06] MEDS: ondansetron/PF 4mg/2ml inj IV PRN (05:42)
[2017-09-06] MEDS: fluconazole-Diflucan 100MG/NS 50 ML IV SCH (07:04)
== END 2017-09-06 08:05 | disposition home health service (06) | DRG 139 ==
LOC: ER 13:47 → ED HOLD 17:52 → PCU 3S 20:10 → ORTHO 4S 09-01 19:17
PROVIDERS: ADMIT Internal Medicine Critical Care Medicine
PROC: 3E1M39Z Irrigation of Peritoneal Cavity using Dialysate, Percutaneous Approach (ICD-10-PCS; 2017-08-26)
PROC: 30233N1 Transfusion of Nonautologous Red Blood Cells into Peripheral Vein, Percutaneous Approach (ICD-10-PCS; principal; 2017-08-27)
PROC: 3E1M39Z Irrigation of Peritoneal Cavity using Dialysate, Percutaneous Approach (ICD-10-PCS; 2017-08-27)
PROC: 3E1M39Z Irrigation of Peritoneal Cavity using Dialysate, Percutaneous Approach (ICD-10-PCS; 2017-08-28)
PROC: 3E1M39Z Irrigation of Peritoneal Cavity using Dialysate, Percutaneous Approach (ICD-10-PCS; 2017-08-29)
PROC: 3E1M39Z Irrigation of Peritoneal Cavity using Dialysate, Percutaneous Approach (ICD-10-PCS; 2017-08-30)
PROC: 3E1M39Z Irrigation of Peritoneal Cavity using Dialysate, Percutaneous Approach (ICD-10-PCS; 2017-08-31)
PROC: 3E1M39Z Irrigation of Peritoneal Cavity using Dialysate, Percutaneous Approach (ICD-10-PCS; 2017-09-01)
PROC: 3E1M39Z Irrigation of Peritoneal Cavity using Dialysate, Percutaneous Approach (ICD-10-PCS; 2017-09-02)
PROC: 3E1M39Z Irrigation of Peritoneal Cavity using Dialysate, Percutaneous Approach (ICD-10-PCS; 2017-09-03)
PROC: 3E1M39Z Irrigation of Peritoneal Cavity using Dialysate, Percutaneous Approach (ICD-10-PCS; 2017-09-04)
PROC: 3E1M39Z Irrigation of Peritoneal Cavity using Dialysate, Percutaneous Approach (ICD-10-PCS; 2017-09-05)
PROC: 3E1M39Z Irrigation of Peritoneal Cavity using Dialysate, Percutaneous Approach (ICD-10-PCS; 2017-09-06)
DX: J18.9 Pneumonia, unspecified organism (principal); I13.2 Hypertensive heart and chronic kidney disease with heart failure and with stage 5 chronic kidney disease, or end stage renal disease; N18.6 End stage renal disease; E11.22 Type 2 diabetes mellitus with diabetic chronic kidney disease; J84.10 Pulmonary fibrosis, unspecified; K76.6 Portal hypertension; G89.29 Other chronic pain; N39.0 Urinary tract infection, site not specified; R16.1 Splenomegaly, not elsewhere classified; R21 Rash and other nonspecific skin eruption; R26.2 Difficulty in walking, not elsewhere classified; I50.9 Heart failure, unspecified; K57.30 Diverticulosis of large intestine without perforation or abscess without bleeding; M54.10 Radiculopathy, site unspecified; Z90.710 Acquired absence of both cervix and uterus; Z90.49 Acquired absence of other specified parts of digestive tract; Z87.19 Personal history of other diseases of the digestive system; Z79.899 Other long term (current) drug therapy; Z99.2 Dependence on renal dialysis; Z88.6 Allergy status to analgesic agent; Z88.8 Allergy status to other drugs, medicaments and biological substances; Z79.82 Long term (current) use of aspirin
CPT/HCPCS: 36415; 71045; 74176; 80053; 80061; 81001; 82948; 83036; 83605; 83690; 83735; 84100; 84145; 84484; 85007; 85025; 85027; 85610; 85730; 86885; 86900; 86901; 86920; 87040; 87070; 87077; 87088; 87103; 87186; 87324; 87449; 90935; 93005; 94640; 94667; 94668; 94760; 96365; 96368; 96375; 97110; 97161; 97530; 99285; A4310; A4353; A6209; A6212; A6213; A6250; A6257; A6449; J0456; J0696; J0780; J1450; J1644; J1815; J2020; J2060; J2405; J2765; J3370; J7030; P9016; Q0169; Q9963

== ENCOUNTER 2017-09-09 15:27 | Emergency (ER) | payer MEDICAID ==
[~2017-09-09] VITALS: Ht 182.9 cm; Wt 100.0 kg
[~2017-09-09 15:27] MED LIST changes: -ACET-3068 PO; -HUM10VIA; -LANTUS SQ; -SIME80TA5 PO
[2017-09-09 16:27] LABS: BASOPHILS % (AUTO) 0.6 % (0-1); EOSINOPHILS # (AUTO) 0.2 X10'3 (0-0.9); EOSINOPHILS % (AUTO) 2.8 % (0-6); HEMATOCRIT 26.9 % (35.0-45.0); HEMOGLOBIN 8.9 g/dl (12.0-16.0); LYMPHOCYTES # (AUTO) 0.6 X10'3 (1.1-4.8); LYMPHOCYTES % (AUTO) 8.9 % (21-51); MEAN CORPUSCULAR HEMOGLOBIN 27.3 PG (27.0-31.0); MEAN CORPUSCULAR HGB CONC 32.9 % (33.0-36.5); MEAN CORPUSCULAR VOLUME 82.8 FL (78-98); MONOCYTES # (AUTO) 0.5 X10'3 (0-0.9); MONOCYTES % (AUTO) 7.3 % (2-12); NEUTROPHILS # (AUTO) 5.3 X10'3 (1.8-7.7); NEUTROPHILS % (AUTO) 80.4 % (42-75); PLATELET COUNT 297 X10'3 (140-440); RED BLOOD COUNT 3.25 X10'6 (4.20-5.60); RED CELL DISTRIBUTION WIDTH 17.6 % (11.5-14.5); WHITE BLOOD COUNT 6.5 X10'3 (4.5-11.0)
[2017-09-09 16:34] LABS: ANION GAP 13 (8-16); BLOOD UREA NITROGEN 47 MG/DL (7-18); BUN/CREATININE RATIO 4.4 (6.6-38.0); CALCIUM 8.1 MG/DL (8.5-10.1); CHLORIDE 97 MMOL/L (99-107); CREATININE 10.68 MG/DL (0.40-0.90); GLUCOSE 165 MG/DL (70-104); POTASSIUM 4.1 MMOL/L (3.5-5.1); SODIUM 138 MMOL/L (135-145); eGFR 4 ML/MIN
[2017-09-09 16:56] LABS: CLARITY,URINE CLOUDY (Clear); COLOR,URINE YELLOW (Yellow); GLUCOSE, URINE 250 mg/dl (Neg); KETONES,URINE NEGATIVE (Neg); LEUKOCYTE ESTERASE ,URINE MODERATE (Neg); NITRITES, URINE NEGATIVE (Neg); OCCULT BLOOD,URINE LARGE (Neg); PROTEIN,URINE >=300 mg/dl (Neg); UROBILINOGEN,URINE 0.2 E.U/dL (0.2-1.0)
[2017-09-09 16:59] LABS: UA COLLECTION TYPE STRAIGHT CATH
[2017-09-09 17:02] LABS: SQUAMOUS EPITHELIAL CELL,UR MANY /LPF (FEW)
[2017-09-09 17:03] LABS: TRANSITIONAL EPI CELLS,URINE FEW /HPF
[2017-09-09 17:04] LABS: MUCUS STRANDS NONE SEEN /LPF (Neg); RBC,URINE TNTC /HPF (0-2); WBC,URINE TNTC /HPF (0-4)
[2017-09-09 17:05] LABS: AMORPHOUS PHOSPHATES 3+; BACTERIA,URINE FEW /HPF (Neg)
[2017-09-09] MEDS ORDERED: FLUC150T66 PO (17:47)
[2017-09-09] MEDS ORDERED: DOXY100C43 PO (17:50)
[2017-09-09 21:10] VITALS: BP 162/78
== END 2017-09-09 21:13 | disposition home or self-care (01) ==
LOC: ER 15:27
DX: J18.9 Pneumonia, unspecified organism (principal); R09.02 Hypoxemia; J90 Pleural effusion, not elsewhere classified; N39.0 Urinary tract infection, site not specified; I11.0 Hypertensive heart disease with heart failure; I50.9 Heart failure, unspecified; E11.9 Type 2 diabetes mellitus without complications; Z90.710 Acquired absence of both cervix and uterus; Z90.49 Acquired absence of other specified parts of digestive tract; Z99.2 Dependence on renal dialysis; Z88.5 Allergy status to narcotic agent; Z88.8 Allergy status to other drugs, medicaments and biological substances; Z79.82 Long term (current) use of aspirin; Z79.899 Other long term (current) drug therapy
CPT/HCPCS: 36415; 71046; 80048; 81001; 85025; 87088; 99285; A4353

== ENCOUNTER 2017-10-07 11:13 | Emergency (ER) | payer MEDICAID ==
[~2017-10-07] VITALS: Ht 162.6 cm; Wt 110.0 kg
[~2017-10-07 11:13] MED LIST changes: -ACET-75; +ALPH1TAB4; +AMLO5TAB PO; +ASCO500C15 PO; -ATOR10TA87 PO; +CALC0.253 PO; +CHOL100046 PO; +GARL1000 PO; +HUM10VIA; +LANTUS SQ; +LOPE1LIQ54; +METO5TAB98 PO; +PANT-47 PO; +PHO667C PO; +QUELT PO
[2017-10-07] MEDS ORDERED: acetaminophen w/codeine (60MG) #4 tablet PO STA (11:26)
[2017-10-07] MEDS ORDERED: acetaminophen w/codeine (30MG) #3 tablet PO STA (11:36)
[2017-10-07 14:58] VITALS: BP 158/70
== END 2017-10-07 15:21 | disposition home or self-care (01) ==
LOC: ER 11:13
DX: M25.551 Pain in right hip (principal); L89.159 Pressure ulcer of sacral region, unspecified stage; L97.419 Non-pressure chronic ulcer of right heel and midfoot with unspecified severity; I13.0 Hypertensive heart and chronic kidney disease with heart failure and stage 1 through stage 4 chronic kidney disease, or unspecified chronic kidney disease; E11.22 Type 2 diabetes mellitus with diabetic chronic kidney disease; N18.9 Chronic kidney disease, unspecified; I50.9 Heart failure, unspecified; G89.29 Other chronic pain; Z90.49 Acquired absence of other specified parts of digestive tract; Z90.710 Acquired absence of both cervix and uterus; Z98.890 Other specified postprocedural states; Z88.5 Allergy status to narcotic agent; Z88.6 Allergy status to analgesic agent; Z88.8 Allergy status to other drugs, medicaments and biological substances; Z79.82 Long term (current) use of aspirin; Z79.4 Long term (current) use of insulin; Z79.899 Other long term (current) drug therapy
CPT/HCPCS: 99284; A6223

== ENCOUNTER 2017-11-06 12:51 | Inpatient (IN) | payer MEDICAID ==
[~2017-11-06] VITALS: Ht 182.9 cm; Wt 107.0 kg
[2017-11-06] MEDS ORDERED: magnesium hydroxide 30ml (MOM) UD suspension PO PRN (14:30)
[2017-11-06] MEDS ORDERED: acetaminophen 325mg tablet PO PRN (14:30)
[2017-11-06] MEDS ORDERED: acetaminophen 650mg rectal suppository RC PRN (14:30)
[2017-11-06] MEDS ORDERED: iohexol 350 MG/ML 50ML vial IV ONE (15:50)
[2017-11-06] MEDS ORDERED: iohexol 350MG/ML 100ml bottle IV ONE (15:50)
[2017-11-06 16:15] VITALS: BP 112/56
[2017-11-06] MEDS ORDERED: NIFE90TA2 PO (17:32)
[2017-11-06] MEDS ORDERED: SEVE800T8 PO (17:32)
[2017-11-06] MEDS ORDERED: HYDR-565 PO (17:32)
[2017-11-06] MEDS ORDERED: FOLI0.8T7 PO (17:32)
[2017-11-06] MEDS ORDERED: POLY17PO10 PO (17:32)
[2017-11-06] MEDS ORDERED: ATOR10TA87 PO (17:32)
[2017-11-06] MEDS ORDERED: GENT30CR TOP (17:32)
[2017-11-06 18:00] VITALS: BP 112/56
[2017-11-06] MEDS ORDERED: dextrose ORAL solution 15 GM/59 ML bottle PO PRN ×2 (19:20)
[2017-11-06] MEDS ORDERED: MESSAGE TO PHARMACY PO ONE (19:20)
[2017-11-06] MEDS ORDERED: dextrose 50%-water 50ml dispensing syringe IV PRN ×2 (19:20)
[2017-11-06] MEDS ORDERED: glucagon, human recombinant 1mg kit SUBCUT PRN (19:20)
[2017-11-06] MEDS: docusate sod 100mg capsule PO SCH (20:00)
[2017-11-06] MEDS ORDERED: polyethylene glycol 3350 17gm powd pack PO PRN (20:20)
[2017-11-06] MEDS ORDERED: HYDROcodone/acetaminophen 10/325mg tab PO PRN (20:20)
[2017-11-06] MEDS ORDERED: loperamide 2mg capsule PO PRN (20:35)
[2017-11-06] MEDS: folic acid/vitamin B complex w/vitamin C 0.8mg tablet PO SCH (21:00)
[2017-11-06] MEDS: insulin glargine (Lantus) pen - multi-dose SQ SCH (21:00)
[2017-11-06] MEDS: atorvastatin 10mg tablet PO SCH (21:00)
[2017-11-06] MEDS: gabapentin 100mg capsule PO SCH (21:13)
[2017-11-06] MEDS: heparin, porcine 5000 units/ml vial SQ SCH ×2 (21:28→23:46)
[2017-11-06] MEDS: ondansetron/PF 4mg/2ml inj IV PRN (21:30)
[2017-11-06 22:00] VITALS: BP 140/61
[2017-11-07] MEDS ORDERED: non-formulary drug (Ondansetron HCl 1 TAB) PO SCH
[2017-11-07] MEDS: ondansetron/PF 4mg/2ml inj IV PRN ×4 (03:45→20:56)
[2017-11-07] MEDS: HYDROcodone/acetaminophen 10/325mg tab PO PRN ×3 (03:46→21:34)
[2017-11-07 05:00] VITALS: BP 140/58
[2017-11-07 05:53] LABS: BASOPHILS % (AUTO) 0.4 % (0-1); EOSINOPHILS % (AUTO) 0.1 % (0-6); HEMATOCRIT 34.6 % (35.0-45.0); HEMOGLOBIN 10.6 g/dl (12.0-16.0); LYMPHOCYTES # (AUTO) 0.5 X10'3 (1.1-4.8); LYMPHOCYTES % (AUTO) 9.1 % (21-51); MEAN CORPUSCULAR HEMOGLOBIN 26.9 PG (27.0-31.0); MEAN CORPUSCULAR HGB CONC 30.7 % (33.0-36.5); MEAN CORPUSCULAR VOLUME 87.8 FL (78-98); MEAN PLATELET VOLUME 7.3 FL (7.4-10.4); MONOCYTES # (AUTO) 0.6 X10'3 (0-0.9); MONOCYTES % (AUTO) 10.3 % (2-12); NEUTROPHILS # (AUTO) 4.8 X10'3 (1.8-7.7); NEUTROPHILS % (AUTO) 80.1 % (42-75); PLATELET COUNT 389 X10'3 (140-440); RED BLOOD COUNT 3.95 X10'6 (4.20-5.60); RED CELL DISTRIBUTION WIDTH 20.7 % (11.5-14.5); WHITE BLOOD COUNT 5.9 X10'3 (4.5-11.0)
[2017-11-07 06:17] LABS: ALANINE AMINOTRANSFERASE 14 U/L (12-78); ALBUMIN/GLOBULIN RATIO 0.3 (1.1-1.5); ALKALINE PHOSPHATASE 139 IU/L (46-116); ANION GAP 14 (8-16); ASPARTATE AMINO TRANSFERASE 10 U/L (10-37); BILIRUBIN,TOTAL 0.3 MG/DL (0.1-1.0); BLOOD UREA NITROGEN 14 MG/DL (7-18); BUN/CREATININE RATIO 3.9 (6.6-38.0); CALCIUM 7.6 MG/DL (8.5-10.1); CHLORIDE 98 MMOL/L (99-107); CREATININE 3.62 MG/DL (0.40-0.90); GLUCOSE 96 MG/DL (70-104); MAGNESIUM 1.7 MG/DL (1.5-2.4); PHOSPHORUS 3.3 MG/DL (2.3-4.5); POTASSIUM 3.3 MMOL/L (3.5-5.1); SODIUM 141 MMOL/L (135-145); TOTAL CARBON DIOXIDE 29.3 MMOL/L (24-32); TOTAL PROTEIN 4.6 G/DL (6.4-8.2); eGFR 13 ML/MIN
[2017-11-07 06:55] LABS: ANISOCYTOSIS 3+; ELLIPTOCYTES FEW; PLATELET ESTIMATE NORMAL; SCHISTOCYTES FEW
[2017-11-07 06:56] LABS: ACANTHOCYTES FEW; HYPOCHROMASIA 1+; POLYCHROMASIA FEW; TEAR DROP CELLS FEW
[2017-11-07 07:11] LABS: INR 1.5 INR; PARTIAL THROMBOPLASTIN TIME 48 SECONDS (22-32); PROTHROMBIN TIME 15.4 SECONDS (9.0-12.0)
[2017-11-07] MEDS: sevelamer carbonate 800mg tablet PO SCH ×4 (07:30→17:49)
[2017-11-07] MEDS: pantoprazole 40mg Tablet.DR PO SCH ×2 (07:30→08:00)
[2017-11-07] MEDS ORDERED: NIFEDIPINE PO SCH (08:00)
[2017-11-07] MEDS: amLODIPine 5mg tablet PO SCH (08:00)
[2017-11-07] MEDS: NIFEdipine XL 30mg tablet PO SCH (08:00)
[2017-11-07] MEDS: docusate sod 100mg capsule PO SCH ×2 (08:00→20:00)
[2017-11-07] MEDS: carvedilol 6.25mg tablet PO SCH ×2 (08:00→20:00)
[2017-11-07] MEDS ORDERED: vitamin D (cholecalciferol) 1,000 unit tablet PO SCH (08:00)
[2017-11-07] MEDS ORDERED: non-formulary drug (Esomeprazole Mag Trihydrate* (Nexium*) 1 CAP) PO SCH (08:00)
[2017-11-07] MEDS ORDERED: ascorbic acid 500mg tablet PO SCH (08:00)
[2017-11-07] MEDS: furosemide 40mg tablet PO SCH (08:00)
[2017-11-07] MEDS: calcium acetate 667mg (PhosLO) capsule PO SCH ×2 (08:00)
[2017-11-07] MEDS: chloestyramine/aspartame 4gm packet PO SCH ×2 (08:00→20:00)
[2017-11-07] MEDS ORDERED: calcitriol 0.25mcg capsule PO SCH (08:00)
[2017-11-07] MEDS: aspirin 81mg tab.chew PO SCH (08:00)
[2017-11-07 10:00] VITALS: BP 130/52
[2017-11-07] MEDS: proMETHazine 25mg tablet PO PRN (12:32)
[2017-11-07] MEDS: heparin, porcine 5000 units/ml vial SQ SCH ×2 (12:41→16:00)
[2017-11-07] MEDS: gentamicin 0.1% topical ointment 15gm TP SCH (15:24)
[2017-11-07 18:00] VITALS: BP 112/44
[2017-11-07] MEDS: folic acid/vitamin B complex w/vitamin C 0.8mg tablet PO SCH (21:00)
[2017-11-07] MEDS: insulin glargine (Lantus) pen - multi-dose SQ SCH (21:00)
[2017-11-07] MEDS: atorvastatin 10mg tablet PO SCH (21:00)
[2017-11-07] MEDS: gabapentin 100mg capsule PO SCH (21:01)
[2017-11-07 22:00] VITALS: BP 131/51
[2017-11-08] MEDS: HYDROcodone/acetaminophen 10/325mg tab PO PRN ×5 (01:37→21:56)
[2017-11-08] MEDS: heparin, porcine 5000 units/ml vial SQ SCH ×4 (01:38→23:39)
[2017-11-08] MEDS: proMETHazine 25mg tablet PO PRN (02:24)
[2017-11-08 06:00] VITALS: BP 144/66
[2017-11-08 06:36] LABS: BASOPHILS % (AUTO) 0.6 % (0-1); EOSINOPHILS # (AUTO) 0.1 X10'3 (0-0.9); EOSINOPHILS % (AUTO) 1.2 % (0-6); HEMATOCRIT 27.7 % (35.0-45.0); HEMOGLOBIN 8.7 g/dl (12.0-16.0); LYMPHOCYTES # (AUTO) 0.7 X10'3 (1.1-4.8); LYMPHOCYTES % (AUTO) 11.3 % (21-51); MEAN CORPUSCULAR HEMOGLOBIN 27.2 PG (27.0-31.0); MEAN CORPUSCULAR HGB CONC 31.5 % (33.0-36.5); MEAN CORPUSCULAR VOLUME 86.3 FL (78-98); MEAN PLATELET VOLUME 7.1 FL (7.4-10.4); MONOCYTES # (AUTO) 0.8 X10'3 (0-0.9); MONOCYTES % (AUTO) 11.6 % (2-12); NEUTROPHILS # (AUTO) 4.9 X10'3 (1.8-7.7); NEUTROPHILS % (AUTO) 75.3 % (42-75); PLATELET COUNT 382 X10'3 (140-440); RED BLOOD COUNT 3.21 X10'6 (4.20-5.60); RED CELL DISTRIBUTION WIDTH 19.9 % (11.5-14.5); WHITE BLOOD COUNT 6.5 X10'3 (4.5-11.0)
[2017-11-08 06:46] LABS: INR 1.5 INR; PARTIAL THROMBOPLASTIN TIME 49 SECONDS (22-32); PROTHROMBIN TIME 15.3 SECONDS (9.0-12.0)
[2017-11-08 06:52] LABS: ALANINE AMINOTRANSFERASE 10 U/L (12-78); ALBUMIN 0.9 G/DL (3.4-5.0); ALBUMIN/GLOBULIN RATIO 0.3 (1.1-1.5); ALKALINE PHOSPHATASE 116 IU/L (46-116); ANION GAP 10 (8-16); ASPARTATE AMINO TRANSFERASE 6 U/L (10-37); BILIRUBIN,TOTAL 0.2 MG/DL (0.1-1.0); BLOOD UREA NITROGEN 16 MG/DL (7-18); BUN/CREATININE RATIO 3.6 (6.6-38.0); CALCIUM 7.5 MG/DL (8.5-10.1); CHLORIDE 98 MMOL/L (99-107); CREATININE 4.46 MG/DL (0.40-0.90); GLUCOSE 100 MG/DL (70-104); MAGNESIUM 1.5 MG/DL (1.5-2.4); PHOSPHORUS 3.5 MG/DL (2.3-4.5); POTASSIUM 3.2 MMOL/L (3.5-5.1); SODIUM 140 MMOL/L (135-145); TOTAL PROTEIN 3.9 G/DL (6.4-8.2); eGFR 10 ML/MIN
[2017-11-08] MEDS: aspirin 81mg tab.chew PO SCH (07:45)
[2017-11-08] MEDS: pantoprazole 40mg Tablet.DR PO SCH ×2 (07:45→08:04)
[2017-11-08] MEDS: sevelamer carbonate 800mg tablet PO SCH ×4 (07:47→17:21)
[2017-11-08] MEDS: ondansetron/PF 4mg/2ml inj IV PRN ×2 (07:47→19:02)
[2017-11-08] MEDS: furosemide 40mg tablet PO SCH (08:00)
[2017-11-08] MEDS ORDERED: SODIUM THIOSULFATE IV ONE (08:00)
[2017-11-08] MEDS: amLODIPine 5mg tablet PO SCH (08:00)
[2017-11-08] MEDS: chloestyramine/aspartame 4gm packet PO SCH ×2 (08:00→20:00)
[2017-11-08] MEDS ORDERED: NORMAL SALINE IV ONE (08:00)
[2017-11-08] MEDS: ascorbic acid 500mg tablet PO SCH (08:00)
[2017-11-08] MEDS ORDERED: LIDOcaine 1% (10mg/ml) 2ml vial SQ ONE (08:00)
[2017-11-08] MEDS: NIFEdipine XL 30mg tablet PO SCH (08:00)
[2017-11-08] MEDS ORDERED: epoetin 20,000 units/ml inj IV ONE (08:00)
[2017-11-08] MEDS: docusate sod 100mg capsule PO SCH ×2 (08:00→20:00)
[2017-11-08] MEDS ORDERED: heparin 1,000 units/ml 10ml inj IV ONE (08:00)
[2017-11-08] MEDS: carvedilol 6.25mg tablet PO SCH ×2 (08:00→20:00)
[2017-11-08] MEDS ORDERED: SODIUM THIOSULFATE 12.5 GM/50 ML IV ONE (08:00)
[2017-11-08] MEDS ORDERED: normal saline 1000ml 250 ML IV PRN (08:00)
[2017-11-08] MEDS: gentamicin 0.1% topical ointment 15gm TP SCH (08:04)
[2017-11-08 09:45] LABS: ACANTHOCYTES FEW; ANISOCYTOSIS 2+; ELLIPTOCYTES 1+; HYPOCHROMASIA 1+; PLATELET ESTIMATE NORMAL; POLYCHROMASIA 1+; SCHISTOCYTES FEW
[2017-11-08 10:00] VITALS: BP 109/47
[2017-11-08] MEDS ORDERED: polyethylene glycol 3350 17gm powd pack PO PRN (14:30)
[2017-11-08] MEDS: piperacillin-tazo 2.25gm/50ml 50 ML IV SCH ×2 (15:13→20:32)
[2017-11-08] MEDS: ondansetron 4mg rapidly disintigrating tab PO PRN (15:17)
[2017-11-08 18:00] VITALS: BP 143/52
[2017-11-08] MEDS: HYDROmorphone 2mg tablet PO PRN ×2 (19:02→23:35)
[2017-11-08] MEDS: gabapentin 100mg capsule PO SCH (20:17)
[2017-11-08] MEDS: insulin glargine (Lantus) pen - multi-dose SQ SCH (21:00)
[2017-11-08] MEDS: folic acid/vitamin B complex w/vitamin C 0.8mg tablet PO SCH (21:00)
[2017-11-08] MEDS: atorvastatin 10mg tablet PO SCH (21:00)
[2017-11-09] VITALS: BP 126/67
[2017-11-09] MEDS: piperacillin-tazo 2.25gm/50ml 50 ML IV SCH ×4 (01:26→20:12)
[2017-11-09] MEDS: HYDROcodone/acetaminophen 10/325mg tab PO PRN ×3 (05:54→17:09)
[2017-11-09 06:00] VITALS: BP 146/37
[2017-11-09 07:21] LABS: ALANINE AMINOTRANSFERASE 9 U/L (12-78); ALBUMIN 0.8 G/DL (3.4-5.0); ALBUMIN/GLOBULIN RATIO 0.3 (1.1-1.5); ALKALINE PHOSPHATASE 110 IU/L (46-116); ANION GAP 8 (8-16); ASPARTATE AMINO TRANSFERASE 11 U/L (10-37); BILIRUBIN,TOTAL 0.2 MG/DL (0.1-1.0); BLOOD UREA NITROGEN 12 MG/DL (7-18); BUN/CREATININE RATIO 3.2 (6.6-38.0); CALCIUM 7.4 MG/DL (8.5-10.1); CHLORIDE 100 MMOL/L (99-107); CREATININE 3.75 MG/DL (0.40-0.90); GLUCOSE 97 MG/DL (70-104); MAGNESIUM 1.5 MG/DL (1.5-2.4); PHOSPHORUS 2.7 MG/DL (2.3-4.5); POTASSIUM 3.3 MMOL/L (3.5-5.1); SODIUM 138 MMOL/L (135-145); TOTAL CARBON DIOXIDE 30.3 MMOL/L (24-32); TOTAL PROTEIN 3.7 G/DL (6.4-8.2); eGFR 13 ML/MIN
[2017-11-09] MEDS: pantoprazole 40mg Tablet.DR PO SCH ×2 (07:55→08:00)
[2017-11-09] MEDS: aspirin 81mg tab.chew PO SCH (07:56)
[2017-11-09] MEDS: sevelamer carbonate 800mg tablet PO SCH ×3 (07:56→17:08)
[2017-11-09] MEDS: heparin, porcine 5000 units/ml vial SQ SCH ×2 (07:58→17:08)
[2017-11-09] MEDS: ondansetron/PF 4mg/2ml inj IV PRN ×2 (07:59→17:09)
[2017-11-09] MEDS: NIFEdipine XL 30mg tablet PO SCH (08:00)
[2017-11-09] MEDS: docusate sod 100mg capsule PO SCH ×2 (08:00→20:00)
[2017-11-09] MEDS: chloestyramine/aspartame 4gm packet PO SCH ×2 (08:00→20:00)
[2017-11-09] MEDS: carvedilol 6.25mg tablet PO SCH ×2 (08:00→20:00)
[2017-11-09] MEDS: amLODIPine 5mg tablet PO SCH (08:00)
[2017-11-09] MEDS: ascorbic acid 500mg tablet PO SCH (08:00)
[2017-11-09] MEDS: furosemide 40mg tablet PO SCH (08:00)
[2017-11-09] MEDS: HYDROmorphone 2mg tablet PO PRN ×2 (08:36→12:41)
[2017-11-09 10:00] VITALS: BP 128/66
[2017-11-09 11:05] LABS: BASOPHILS % (AUTO) 0.2 % (0-1); EOSINOPHILS % (AUTO) 0.4 % (0-6); HEMATOCRIT 28.1 % (35.0-45.0); HEMOGLOBIN 8.8 g/dl (12.0-16.0); LYMPHOCYTES # (AUTO) 0.5 X10'3 (1.1-4.8); LYMPHOCYTES % (AUTO) 9.2 % (21-51); MEAN CORPUSCULAR HEMOGLOBIN 27.1 PG (27.0-31.0); MEAN CORPUSCULAR HGB CONC 31.3 % (33.0-36.5); MEAN CORPUSCULAR VOLUME 86.5 FL (78-98); MEAN PLATELET VOLUME 7.7 FL (7.4-10.4); MONOCYTES # (AUTO) 0.6 X10'3 (0-0.9); MONOCYTES % (AUTO) 11.3 % (2-12); NEUTROPHILS # (AUTO) 4.4 X10'3 (1.8-7.7); NEUTROPHILS % (AUTO) 78.9 % (42-75); PLATELET COUNT 294 X10'3 (140-440); RED BLOOD COUNT 3.25 X10'6 (4.20-5.60); RED CELL DISTRIBUTION WIDTH 20.7 % (11.5-14.5); WHITE BLOOD COUNT 5.6 X10'3 (4.5-11.0)
[2017-11-09 11:57] LABS: PLATELET ESTIMATE NORMAL
[2017-11-09 11:58] LABS: ANISOCYTOSIS 3+; HYPOCHROMASIA 1+
[2017-11-09 11:59] LABS: ACANTHOCYTES 1+; ELLIPTOCYTES 1+; POLYCHROMASIA 1+; SCHISTOCYTES FEW
[2017-11-09 12:11] LABS: INR 1.4 INR; PARTIAL THROMBOPLASTIN TIME 41 SECONDS (22-32)
[2017-11-09] MEDS: proMETHazine 25mg tablet PO PRN (12:41)
[2017-11-09 18:00] VITALS: BP 124/62
[2017-11-09] MEDS: lactobacillus rhamnosus 10,000 MMU CELLS/CAPSULE PO SCH (20:00)
[2017-11-09] MEDS: HYDROmorphone 2mg tablet PO SCH (20:14)
[2017-11-09] MEDS: atorvastatin 10mg tablet PO SCH (21:00)
[2017-11-09] MEDS: gabapentin 100mg capsule PO SCH (21:00)
[2017-11-09] MEDS: folic acid/vitamin B complex w/vitamin C 0.8mg tablet PO SCH (21:00)
[2017-11-09] MEDS: insulin glargine (Lantus) pen - multi-dose SQ SCH (21:00)
[2017-11-09 22:00] VITALS: BP 123/54
[2017-11-10] MEDS: piperacillin-tazo 2.25gm/50ml 50 ML IV SCH ×4 (02:14→20:25)
[2017-11-10] MEDS: heparin, porcine 5000 units/ml vial SQ SCH ×3 (02:15→15:16)
[2017-11-10 06:00] VITALS: BP_SYST 119; BP_SYST 125; BP_DIAS 57; BP_DIAS 67
[2017-11-10 06:38] LABS: BASOPHILS % (AUTO) 0.4 % (0-1); EOSINOPHILS # (AUTO) 0.1 X10'3 (0-0.9); HEMATOCRIT 30.2 % (35.0-45.0); HEMOGLOBIN 9.3 g/dl (12.0-16.0); LYMPHOCYTES # (AUTO) 0.8 X10'3 (1.1-4.8); LYMPHOCYTES % (AUTO) 13.5 % (21-51); MEAN CORPUSCULAR HEMOGLOBIN 27.2 PG (27.0-31.0); MEAN CORPUSCULAR HGB CONC 30.8 % (33.0-36.5); MEAN CORPUSCULAR VOLUME 88.4 FL (78-98); MEAN PLATELET VOLUME 7.2 FL (7.4-10.4); MONOCYTES # (AUTO) 0.6 X10'3 (0-0.9); MONOCYTES % (AUTO) 9.7 % (2-12); NEUTROPHILS # (AUTO) 4.3 X10'3 (1.8-7.7); NEUTROPHILS % (AUTO) 74.4 % (42-75); PLATELET COUNT 360 X10'3 (140-440); RED BLOOD COUNT 3.42 X10'6 (4.20-5.60); RED CELL DISTRIBUTION WIDTH 21.1 % (11.5-14.5); WHITE BLOOD COUNT 5.8 X10'3 (4.5-11.0)
[2017-11-10 06:49] LABS: INR 1.3 INR; PARTIAL THROMBOPLASTIN TIME 51 SECONDS (22-32); PROTHROMBIN TIME 13.8 SECONDS (9.0-12.0)
[2017-11-10 06:54] LABS: ALANINE AMINOTRANSFERASE 12 U/L (12-78); ALBUMIN 0.9 G/DL (3.4-5.0); ALBUMIN/GLOBULIN RATIO 0.3 (1.1-1.5); ALKALINE PHOSPHATASE 132 IU/L (46-116); ANION GAP 9 (8-16); ASPARTATE AMINO TRANSFERASE 12 U/L (10-37); BILIRUBIN,TOTAL 0.2 MG/DL (0.1-1.0); BLOOD UREA NITROGEN 14 MG/DL (7-18); BUN/CREATININE RATIO 3.4 (6.6-38.0); CALCIUM 7.9 MG/DL (8.5-10.1); CHLORIDE 98 MMOL/L (99-107); CREATININE 4.11 MG/DL (0.40-0.90); GLUCOSE 143 MG/DL (70-104); MAGNESIUM 1.8 MG/DL (1.5-2.4); PHOSPHORUS 2.7 MG/DL (2.3-4.5); POTASSIUM 3.4 MMOL/L (3.5-5.1); SODIUM 139 MMOL/L (135-145); TOTAL CARBON DIOXIDE 32.2 MMOL/L (24-32); TOTAL PROTEIN 4.1 G/DL (6.4-8.2); eGFR 11 ML/MIN
[2017-11-10] MEDS: sevelamer carbonate 800mg tablet PO SCH ×3 (07:30→17:17)
[2017-11-10] MEDS: lactobacillus rhamnosus 10,000 MMU CELLS/CAPSULE PO SCH ×2 (07:31→20:25)
[2017-11-10] MEDS: carvedilol 6.25mg tablet PO SCH ×2 (07:31→20:25)
[2017-11-10] MEDS: NIFEdipine XL 30mg tablet PO SCH (07:31)
[2017-11-10] MEDS: docusate sod 100mg capsule PO SCH ×2 (07:33→20:25)
[2017-11-10] MEDS: pantoprazole 40mg Tablet.DR PO SCH ×2 (07:33→07:36)
[2017-11-10] MEDS: aspirin 81mg tab.chew PO SCH (07:33)
[2017-11-10] MEDS: HYDROmorphone 2mg tablet PO SCH ×3 (07:34→20:00)
[2017-11-10] MEDS: ondansetron 4mg rapidly disintigrating tab PO PRN (07:34)
[2017-11-10] MEDS: furosemide 40mg tablet PO SCH (07:34)
[2017-11-10] MEDS: chloestyramine/aspartame 4gm packet PO SCH ×2 (07:35→20:00)
[2017-11-10] MEDS: amLODIPine 5mg tablet PO SCH (07:35)
[2017-11-10] MEDS: ascorbic acid 500mg tablet PO SCH (07:36)
[2017-11-10 07:52] LABS: PLATELET ESTIMATE NORMAL
[2017-11-10 07:53] LABS: ACANTHOCYTES 1+; ANISOCYTOSIS 3+; ELLIPTOCYTES 1+; HYPOCHROMASIA 1+; POLYCHROMASIA 1+; TEAR DROP CELLS FEW
[2017-11-10 07:54] LABS: SCHISTOCYTES FEW
[2017-11-10] MEDS: HYDROcodone/acetaminophen 10/325mg tab PO PRN (09:25)
[2017-11-10 10:00] VITALS: BP 139/61
[2017-11-10] MEDS: ondansetron/PF 4mg/2ml inj IV PRN ×2 (12:25→19:06)
[2017-11-10 18:00] VITALS: BP 139/70
[2017-11-10] MEDS: gabapentin 100mg capsule PO SCH (20:25)
[2017-11-10] MEDS: atorvastatin 10mg tablet PO SCH (20:25)
[2017-11-10] MEDS: folic acid/vitamin B complex w/vitamin C 0.8mg tablet PO SCH (20:25)
[2017-11-10] MEDS: nystatin 15 GM powder TP SCH (21:00)
[2017-11-10] MEDS: insulin glargine (Lantus) pen - multi-dose SQ SCH (21:00)
[2017-11-10 22:00] VITALS: BP 122/67
[2017-11-11] MEDS: nystatin 15 GM powder TP SCH ×4 (00:39→21:22)
[2017-11-11] MEDS: heparin, porcine 5000 units/ml vial SQ SCH ×3 (00:39→17:10)
[2017-11-11] MEDS: HYDROcodone/acetaminophen 10/325mg tab PO PRN ×2 (00:41→17:42)
[2017-11-11] MEDS: piperacillin-tazo 2.25gm/50ml 50 ML IV SCH ×4 (01:52→21:21)
[2017-11-11] MEDS: HYDROmorphone 1 mg/ml syringe IV PRN ×3 (01:56→22:42)
[2017-11-11] MEDS: HYDROmorphone 2mg tablet PO SCH ×4 (02:00→20:00)
[2017-11-11 06:00] VITALS: BP 140/69
[2017-11-11 06:20] LABS: BASOPHILS % (AUTO) 0.4 % (0-1); EOSINOPHILS # (AUTO) 0.1 X10'3 (0-0.9); EOSINOPHILS % (AUTO) 1.8 % (0-6); HEMOGLOBIN 8.6 g/dl (12.0-16.0); LYMPHOCYTES # (AUTO) 0.7 X10'3 (1.1-4.8); LYMPHOCYTES % (AUTO) 10.6 % (21-51); MEAN CORPUSCULAR HEMOGLOBIN 27.6 PG (27.0-31.0); MEAN CORPUSCULAR HGB CONC 31.9 % (33.0-36.5); MEAN CORPUSCULAR VOLUME 86.3 FL (78-98); MEAN PLATELET VOLUME 6.9 FL (7.4-10.4); MONOCYTES # (AUTO) 0.6 X10'3 (0-0.9); MONOCYTES % (AUTO) 8.6 % (2-12); NEUTROPHILS # (AUTO) 5.3 X10'3 (1.8-7.7); NEUTROPHILS % (AUTO) 78.6 % (42-75); PLATELET COUNT 324 X10'3 (140-440); RED BLOOD COUNT 3.12 X10'6 (4.20-5.60); RED CELL DISTRIBUTION WIDTH 20.3 % (11.5-14.5); WHITE BLOOD COUNT 6.8 X10'3 (4.5-11.0)
[2017-11-11 06:37] LABS: INR 1.2 INR; PARTIAL THROMBOPLASTIN TIME 50 SECONDS (22-32); PROTHROMBIN TIME 12.8 SECONDS (9.0-12.0)
[2017-11-11 06:44] LABS: ALANINE AMINOTRANSFERASE 13 U/L (12-78); ALBUMIN 0.8 G/DL (3.4-5.0); ALBUMIN/GLOBULIN RATIO 0.3 (1.1-1.5); ALKALINE PHOSPHATASE 125 IU/L (46-116); ANION GAP 11 (8-16); ASPARTATE AMINO TRANSFERASE 8 U/L (10-37); BILIRUBIN,TOTAL 0.2 MG/DL (0.1-1.0); BLOOD UREA NITROGEN 20 MG/DL (7-18); BUN/CREATININE RATIO 4.3 (6.6-38.0); CALCIUM 7.8 MG/DL (8.5-10.1); CHLORIDE 97 MMOL/L (99-107); CREATININE 4.63 MG/DL (0.40-0.90); GLUCOSE 180 MG/DL (70-104); MAGNESIUM 1.7 MG/DL (1.5-2.4); PHOSPHORUS 2.4 MG/DL (2.3-4.5); POTASSIUM 3.6 MMOL/L (3.5-5.1); SODIUM 137 MMOL/L (135-145); TOTAL CARBON DIOXIDE 28.9 MMOL/L (24-32); eGFR 10 ML/MIN
[2017-11-11 07:23] LABS: ANISOCYTOSIS 2+; PLATELET ESTIMATE NORMAL
[2017-11-11] MEDS: sevelamer carbonate 800mg tablet PO SCH ×3 (07:30→17:41)
[2017-11-11] MEDS: pantoprazole 40mg Tablet.DR PO SCH ×2 (07:30→08:00)
[2017-11-11] MEDS: docusate sod 100mg capsule PO SCH ×2 (08:00→20:00)
[2017-11-11] MEDS: NIFEdipine XL 30mg tablet PO SCH (08:00)
[2017-11-11] MEDS: chloestyramine/aspartame 4gm packet PO SCH ×2 (08:00→20:00)
[2017-11-11] MEDS: ascorbic acid 500mg tablet PO SCH (08:00)
[2017-11-11] MEDS: amLODIPine 5mg tablet PO SCH (08:00)
[2017-11-11] MEDS: furosemide 40mg tablet PO SCH (08:00)
[2017-11-11] MEDS: carvedilol 6.25mg tablet PO SCH ×2 (08:43→20:00)
[2017-11-11] MEDS: lactobacillus rhamnosus 10,000 MMU CELLS/CAPSULE PO SCH ×2 (08:43→21:22)
[2017-11-11] MEDS: aspirin 81mg tab.chew PO SCH (08:43)
[2017-11-11] MEDS ORDERED: normal saline 1000ml 250 ML IV PRN (09:03)
[2017-11-11] MEDS ORDERED: heparin 1,000 units/ml 10ml inj IV ONE (09:05)
[2017-11-11] MEDS ORDERED: LIDOcaine 1% (10mg/ml) 2ml vial SQ ONE (09:05)
[2017-11-11] MEDS ORDERED: epoetin 20,000 units/ml inj IV ONE (09:05)
[2017-11-11 10:00] VITALS: BP 149/69
[2017-11-11] MEDS: ondansetron 4mg rapidly disintigrating tab PO PRN (17:42)
[2017-11-11 18:00] VITALS: BP 134/67
[2017-11-11] MEDS: insulin glargine (Lantus) pen - multi-dose SQ SCH (21:00)
[2017-11-11] MEDS: folic acid/vitamin B complex w/vitamin C 0.8mg tablet PO SCH (21:00)
[2017-11-11] MEDS: atorvastatin 10mg tablet PO SCH (21:00)
[2017-11-11] MEDS: gabapentin 100mg capsule PO SCH (21:22)
[2017-11-11 22:00] VITALS: BP 144/69
[2017-11-12] MEDS: heparin, porcine 5000 units/ml vial SQ SCH ×3 (00:26→16:00)
[2017-11-12] MEDS: HYDROmorphone 2mg tablet PO SCH ×4 (02:00→20:00)
[2017-11-12] MEDS: piperacillin-tazo 2.25gm/50ml 50 ML IV SCH ×4 (02:24→22:12)
[2017-11-12 06:00] VITALS: BP 150/72
[2017-11-12] MEDS: aspirin 81mg tab.chew PO SCH (07:43)
[2017-11-12] MEDS: lactobacillus rhamnosus 10,000 MMU CELLS/CAPSULE PO SCH ×2 (07:43→22:22)
[2017-11-12] MEDS: pantoprazole 40mg Tablet.DR PO SCH ×2 (07:43→08:00)
[2017-11-12] MEDS: sevelamer carbonate 800mg tablet PO SCH ×3 (07:43→17:30)
[2017-11-12] MEDS: HYDROmorphone 1 mg/ml syringe IV PRN ×2 (07:44→22:11)
[2017-11-12] MEDS: ondansetron 4mg rapidly disintigrating tab PO PRN (07:52)
[2017-11-12] MEDS: carvedilol 6.25mg tablet PO SCH ×2 (08:00→20:00)
[2017-11-12] MEDS: chloestyramine/aspartame 4gm packet PO SCH ×2 (08:00→20:00)
[2017-11-12] MEDS: NIFEdipine XL 30mg tablet PO SCH (08:00)
[2017-11-12] MEDS: amLODIPine 5mg tablet PO SCH (08:00)
[2017-11-12] MEDS: ascorbic acid 500mg tablet PO SCH (08:00)
[2017-11-12] MEDS: docusate sod 100mg capsule PO SCH ×2 (08:00→20:00)
[2017-11-12] MEDS: nystatin 15 GM powder TP SCH ×3 (08:00→22:18)
[2017-11-12] MEDS: furosemide 40mg tablet PO SCH (08:00)
[2017-11-12 09:28] LABS: BASOPHILS % (AUTO) 0.7 % (0-1); EOSINOPHILS # (AUTO) 0.1 X10'3 (0-0.9); EOSINOPHILS % (AUTO) 2.1 % (0-6); HEMATOCRIT 27.9 % (35.0-45.0); HEMOGLOBIN 8.7 g/dl (12.0-16.0); LYMPHOCYTES # (AUTO) 0.6 X10'3 (1.1-4.8); LYMPHOCYTES % (AUTO) 9.6 % (21-51); MEAN CORPUSCULAR HEMOGLOBIN 27.4 PG (27.0-31.0); MEAN CORPUSCULAR HGB CONC 31.2 % (33.0-36.5); MEAN CORPUSCULAR VOLUME 87.9 FL (78-98); MEAN PLATELET VOLUME 7.1 FL (7.4-10.4); MONOCYTES # (AUTO) 0.6 X10'3 (0-0.9); MONOCYTES % (AUTO) 9.9 % (2-12); NEUTROPHILS % (AUTO) 77.7 % (42-75); PLATELET COUNT 328 X10'3 (140-440); RED BLOOD COUNT 3.18 X10'6 (4.20-5.60); RED CELL DISTRIBUTION WIDTH 20.9 % (11.5-14.5); WHITE BLOOD COUNT 6.5 X10'3 (4.5-11.0)
[2017-11-12 09:39] LABS: INR 1.1 INR; PARTIAL THROMBOPLASTIN TIME 43 SECONDS (22-32); PROTHROMBIN TIME 11.8 SECONDS (9.0-12.0)
[2017-11-12 09:45] LABS: ALANINE AMINOTRANSFERASE 9 U/L (12-78); ALBUMIN 0.8 G/DL (3.4-5.0); ALBUMIN/GLOBULIN RATIO 0.2 (1.1-1.5); ALKALINE PHOSPHATASE 134 IU/L (46-116); ANION GAP 6 (8-16); ASPARTATE AMINO TRANSFERASE 7 U/L (10-37); BILIRUBIN,TOTAL 0.2 MG/DL (0.1-1.0); BLOOD UREA NITROGEN 14 MG/DL (7-18); BUN/CREATININE RATIO 3.8 (6.6-38.0); CALCIUM 7.5 MG/DL (8.5-10.1); CHLORIDE 99 MMOL/L (99-107); CREATININE 3.67 MG/DL (0.40-0.90); GLUCOSE 185 MG/DL (70-104); MAGNESIUM 1.6 MG/DL (1.5-2.4); POTASSIUM 3.7 MMOL/L (3.5-5.1); SODIUM 136 MMOL/L (135-145); TOTAL CARBON DIOXIDE 30.9 MMOL/L (24-32); TOTAL PROTEIN 4.2 G/DL (6.4-8.2); eGFR 13 ML/MIN
[2017-11-12 10:00] VITALS: BP 153/81
[2017-11-12] MEDS: ondansetron/PF 4mg/2ml inj IV PRN (11:10)
[2017-11-12] MEDS: proMETHazine 25mg tablet PO PRN (15:44)
[2017-11-12 18:00] VITALS: BP 150/72
[2017-11-12] MEDS: insulin glargine (Lantus) pen - multi-dose SQ SCH (21:00)
[2017-11-12] MEDS: folic acid/vitamin B complex w/vitamin C 0.8mg tablet PO SCH (21:00)
[2017-11-12] MEDS: atorvastatin 10mg tablet PO SCH (21:00)
[2017-11-12] MEDS: gabapentin 100mg capsule PO SCH (22:21)
[2017-11-13] MEDS: heparin, porcine 5000 units/ml vial SQ SCH ×3 (01:18→16:10)
[2017-11-13] MEDS: piperacillin-tazo 2.25gm/50ml 50 ML IV SCH ×4 (01:27→20:17)
[2017-11-13] MEDS: HYDROcodone/acetaminophen 10/325mg tab PO PRN ×3 (02:16→22:35)
[2017-11-13] MEDS: HYDROmorphone 2mg tablet PO SCH ×4 (02:18→20:19)
[2017-11-13 05:00] VITALS: BP 149/72
[2017-11-13] MEDS ORDERED: normal saline 1000ml 250 ML IV PRN (08:00)
[2017-11-13] MEDS: furosemide 40mg tablet PO SCH (08:00)
[2017-11-13] MEDS ORDERED: epoetin 20,000 units/ml inj IV ONE (08:00)
[2017-11-13] MEDS: carvedilol 6.25mg tablet PO SCH ×2 (08:00→20:18)
[2017-11-13] MEDS ORDERED: LIDOcaine 1% (10mg/ml) 2ml vial SQ ONE (08:00)
[2017-11-13] MEDS: NIFEdipine XL 30mg tablet PO SCH (08:00)
[2017-11-13] MEDS: chloestyramine/aspartame 4gm packet PO SCH ×2 (08:00→20:00)
[2017-11-13] MEDS: ascorbic acid 500mg tablet PO SCH (08:00)
[2017-11-13] MEDS: docusate sod 100mg capsule PO SCH ×2 (08:00→20:00)
[2017-11-13] MEDS: amLODIPine 5mg tablet PO SCH (08:00)
[2017-11-13] MEDS ORDERED: heparin 1,000 units/ml 10ml inj IV ONE (08:00)
[2017-11-13] MEDS: pantoprazole 40mg Tablet.DR PO SCH ×2 (08:15)
[2017-11-13] MEDS: sevelamer carbonate 800mg tablet PO SCH ×3 (08:15→18:58)
[2017-11-13] MEDS: lactobacillus rhamnosus 10,000 MMU CELLS/CAPSULE PO SCH ×2 (08:15→20:18)
[2017-11-13] MEDS: aspirin 81mg tab.chew PO SCH (08:15)
[2017-11-13] MEDS: nystatin 15 GM powder TP SCH ×3 (08:16→21:21)
[2017-11-13] MEDS: proMETHazine 25mg tablet PO PRN (08:26)
[2017-11-13] MEDS: insulin Lispro (HumaLOG) vial - multi-dose SQ SCH ×3 (09:34→20:27)
[2017-11-13 10:00] VITALS: BP 142/78
[2017-11-13 10:20] LABS: BASOPHILS % (AUTO) 0.3 % (0-1); EOSINOPHILS # (AUTO) 0.1 X10'3 (0-0.9); EOSINOPHILS % (AUTO) 0.8 % (0-6); HEMATOCRIT 26.5 % (35.0-45.0); HEMOGLOBIN 8.4 g/dl (12.0-16.0); LYMPHOCYTES # (AUTO) 0.6 X10'3 (1.1-4.8); LYMPHOCYTES % (AUTO) 9.3 % (21-51); MEAN CORPUSCULAR HEMOGLOBIN 27.8 PG (27.0-31.0); MEAN CORPUSCULAR HGB CONC 31.9 % (33.0-36.5); MEAN CORPUSCULAR VOLUME 87.2 FL (78-98); MONOCYTES # (AUTO) 0.5 X10'3 (0-0.9); MONOCYTES % (AUTO) 8.3 % (2-12); NEUTROPHILS # (AUTO) 5.2 X10'3 (1.8-7.7); NEUTROPHILS % (AUTO) 81.3 % (42-75); PLATELET COUNT 329 X10'3 (140-440); RED BLOOD COUNT 3.04 X10'6 (4.20-5.60); RED CELL DISTRIBUTION WIDTH 20.6 % (11.5-14.5); WHITE BLOOD COUNT 6.4 X10'3 (4.5-11.0)
[2017-11-13 10:39] LABS: INR 1.1 INR; PROTHROMBIN TIME 11.1 SECONDS (9.0-12.0)
[2017-11-13 10:40] LABS: ALBUMIN 0.9 G/DL (3.4-5.0); ALBUMIN/GLOBULIN RATIO 0.3 (1.1-1.5); ALKALINE PHOSPHATASE 126 IU/L (46-116); ANION GAP 3 (8-16); ASPARTATE AMINO TRANSFERASE 7 U/L (10-37); BILIRUBIN,TOTAL 0.1 MG/DL (0.1-1.0); BLOOD UREA NITROGEN 11 MG/DL (7-18); BUN/CREATININE RATIO 4.4 (6.6-38.0); CALCIUM 7.4 MG/DL (8.5-10.1); CHLORIDE 103 MMOL/L (99-107); CREATININE 2.51 MG/DL (0.40-0.90); GLUCOSE 202 MG/DL (70-104); MAGNESIUM 1.5 MG/DL (1.5-2.4); PHOSPHORUS 1.3 MG/DL (2.3-4.5); POTASSIUM 3.5 MMOL/L (3.5-5.1); SODIUM 137 MMOL/L (135-145); TOTAL CARBON DIOXIDE 31.4 MMOL/L (24-32); TOTAL PROTEIN 4.2 G/DL (6.4-8.2); eGFR 20 ML/MIN
[2017-11-13 10:57] LABS: PARTIAL THROMBOPLASTIN TIME 96 SECONDS (22-32)
[2017-11-13 10:58] LABS: ALANINE AMINOTRANSFERASE 10 U/L (12-78)
[2017-11-13 11:04] LABS: ANISOCYTOSIS 3+; PLATELET ESTIMATE NORMAL
[2017-11-13 11:05] LABS: POLYCHROMASIA FEW; SCHISTOCYTES FEW
[2017-11-13 11:06] LABS: HYPOCHROMASIA 1+
[2017-11-13 11:07] LABS: ELLIPTOCYTES FEW
[2017-11-13] MEDS ORDERED: SODIUM THIOSULFATE 12.5 GM/50 ML IV SCH (11:45)
[2017-11-13] MEDS ORDERED: NORMAL SALINE IV ONE (11:55)
[2017-11-13] MEDS ORDERED: SODIUM THIOSULFATE IV ONE (11:55)
[2017-11-13 19:00] VITALS: BP 166/75
[2017-11-13] MEDS: gabapentin 100mg capsule PO SCH (20:18)
[2017-11-13] MEDS: folic acid/vitamin B complex w/vitamin C 0.8mg tablet PO SCH (20:18)
[2017-11-13] MEDS: atorvastatin 10mg tablet PO SCH (20:24)
[2017-11-13] MEDS: insulin glargine (Lantus) pen - multi-dose SQ SCH (21:00)
[2017-11-13 23:00] VITALS: BP 157/76
[2017-11-14] MEDS: heparin, porcine 5000 units/ml vial SQ SCH ×3 (00:23→17:01)
[2017-11-14] MEDS: piperacillin-tazo 2.25gm/50ml 50 ML IV SCH ×4 (01:51→21:18)
[2017-11-14] MEDS: HYDROmorphone 2mg tablet PO SCH ×4 (01:51→21:20)
[2017-11-14 04:00] VITALS: BP 136/66
[2017-11-14 05:58] LABS: BASOPHILS % (AUTO) 0.6 % (0-1); EOSINOPHILS # (AUTO) 0.1 X10'3 (0-0.9); EOSINOPHILS % (AUTO) 1.6 % (0-6); HEMATOCRIT 28.6 % (35.0-45.0); LYMPHOCYTES # (AUTO) 0.8 X10'3 (1.1-4.8); LYMPHOCYTES % (AUTO) 12.3 % (21-51); MEAN CORPUSCULAR HEMOGLOBIN 27.8 PG (27.0-31.0); MEAN CORPUSCULAR HGB CONC 31.6 % (33.0-36.5); MEAN CORPUSCULAR VOLUME 87.9 FL (78-98); MEAN PLATELET VOLUME 7.3 FL (7.4-10.4); MONOCYTES # (AUTO) 0.8 X10'3 (0-0.9); MONOCYTES % (AUTO) 12.7 % (2-12); NEUTROPHILS # (AUTO) 4.6 X10'3 (1.8-7.7); NEUTROPHILS % (AUTO) 72.8 % (42-75); PLATELET COUNT 333 X10'3 (140-440); RED BLOOD COUNT 3.26 X10'6 (4.20-5.60); RED CELL DISTRIBUTION WIDTH 21.2 % (11.5-14.5); WHITE BLOOD COUNT 6.3 X10'3 (4.5-11.0)
[2017-11-14 06:05] LABS: PARTIAL THROMBOPLASTIN TIME 38 SECONDS (22-32); PROTHROMBIN TIME 10.5 SECONDS (9.0-12.0)
[2017-11-14 06:12] LABS: ALANINE AMINOTRANSFERASE 13 U/L (12-78); ALBUMIN 0.9 G/DL (3.4-5.0); ALBUMIN/GLOBULIN RATIO 0.2 (1.1-1.5); ALKALINE PHOSPHATASE 120 IU/L (46-116); ANION GAP 8 (8-16); ASPARTATE AMINO TRANSFERASE 5 U/L (10-37); BILIRUBIN,TOTAL 0.1 MG/DL (0.1-1.0); BLOOD UREA NITROGEN 15 MG/DL (7-18); BUN/CREATININE RATIO 4.3 (6.6-38.0); CHLORIDE 100 MMOL/L (99-107); CREATININE 3.51 MG/DL (0.40-0.90); GLUCOSE 187 MG/DL (70-104); MAGNESIUM 1.6 MG/DL (1.5-2.4); PHOSPHORUS 1.3 MG/DL (2.3-4.5); POTASSIUM 3.7 MMOL/L (3.5-5.1); SODIUM 137 MMOL/L (135-145); TOTAL CARBON DIOXIDE 28.7 MMOL/L (24-32); TOTAL PROTEIN 4.6 G/DL (6.4-8.2); eGFR 14 ML/MIN
[2017-11-14] MEDS: sevelamer carbonate 800mg tablet PO SCH ×3 (07:30→17:30)
[2017-11-14] MEDS: pantoprazole 40mg Tablet.DR PO SCH (07:30)
[2017-11-14] MEDS: chloestyramine/aspartame 4gm packet PO SCH ×2 (08:00→20:00)
[2017-11-14] MEDS: nystatin 15 GM powder TP SCH ×3 (08:00→21:36)
[2017-11-14] MEDS: ascorbic acid 500mg tablet PO SCH (08:00)
[2017-11-14] MEDS: carvedilol 6.25mg tablet PO SCH ×2 (08:00→21:20)
[2017-11-14] MEDS: aspirin 81mg tab.chew PO SCH (08:00)
[2017-11-14] MEDS: furosemide 40mg tablet PO SCH (08:00)
[2017-11-14] MEDS: lactobacillus rhamnosus 10,000 MMU CELLS/CAPSULE PO SCH ×2 (08:00→21:19)
[2017-11-14] MEDS: amLODIPine 5mg tablet PO SCH (08:00)
[2017-11-14] MEDS: NIFEdipine XL 30mg tablet PO SCH (08:00)
[2017-11-14] MEDS: docusate sod 100mg capsule PO SCH ×2 (08:00→20:00)
[2017-11-14] MEDS: insulin Lispro (HumaLOG) vial - multi-dose SQ SCH (13:27)
[2017-11-14] MEDS: proMETHazine 25mg tablet PO PRN (14:01)
[2017-11-14] MEDS: ondansetron/PF 4mg/2ml inj IV PRN (17:01)
[2017-11-14 18:00] VITALS: BP 138/69
[2017-11-14] MEDS: insulin glargine (Lantus) pen - multi-dose SQ SCH (21:00)
[2017-11-14] MEDS: atorvastatin 10mg tablet PO SCH (21:00)
[2017-11-14] MEDS: folic acid/vitamin B complex w/vitamin C 0.8mg tablet PO SCH (21:00)
[2017-11-14] MEDS: gabapentin 100mg capsule PO SCH (21:19)
[2017-11-14 22:00] VITALS: BP 151/69
[2017-11-15] MEDS: heparin, porcine 5000 units/ml vial SQ SCH ×3 (00:01→17:14)
[2017-11-15] MEDS: HYDROcodone/acetaminophen 10/325mg tab PO PRN ×3 (00:01→23:56)
[2017-11-15] MEDS: albuterol 2.5 MG/3 ML nebule NEB PRN ×2 (00:32→22:40)
[2017-11-15] MEDS: piperacillin-tazo 2.25gm/50ml 50 ML IV SCH ×4 (02:10→20:02)
[2017-11-15] MEDS: HYDROmorphone 2mg tablet PO SCH ×4 (02:10→20:03)
[2017-11-15 05:00] VITALS: BP 137/62
[2017-11-15 05:20] LABS: BASOPHILS % (AUTO) 0.6 % (0-1); EOSINOPHILS # (AUTO) 0.1 X10'3 (0-0.9); EOSINOPHILS % (AUTO) 2.2 % (0-6); HEMATOCRIT 28.8 % (35.0-45.0); HEMOGLOBIN 9.1 g/dl (12.0-16.0); LYMPHOCYTES # (AUTO) 0.9 X10'3 (1.1-4.8); LYMPHOCYTES % (AUTO) 12.6 % (21-51); MEAN CORPUSCULAR HEMOGLOBIN 27.9 PG (27.0-31.0); MEAN CORPUSCULAR HGB CONC 31.7 % (33.0-36.5); MEAN PLATELET VOLUME 7.1 FL (7.4-10.4); MONOCYTES # (AUTO) 0.7 X10'3 (0-0.9); MONOCYTES % (AUTO) 9.9 % (2-12); NEUTROPHILS # (AUTO) 5.1 X10'3 (1.8-7.7); NEUTROPHILS % (AUTO) 74.7 % (42-75); PLATELET COUNT 396 X10'3 (140-440); RED BLOOD COUNT 3.27 X10'6 (4.20-5.60); RED CELL DISTRIBUTION WIDTH 21.6 % (11.5-14.5); WHITE BLOOD COUNT 6.8 X10'3 (4.5-11.0)
[2017-11-15 05:49] LABS: ALANINE AMINOTRANSFERASE 11 U/L (12-78); ALBUMIN 0.9 G/DL (3.4-5.0); ALBUMIN/GLOBULIN RATIO 0.2 (1.1-1.5); ALKALINE PHOSPHATASE 129 IU/L (46-116); ANION GAP 8 (8-16); ASPARTATE AMINO TRANSFERASE 9 U/L (10-37); BILIRUBIN,TOTAL 0.1 MG/DL (0.1-1.0); BLOOD UREA NITROGEN 20 MG/DL (7-18); BUN/CREATININE RATIO 4.9 (6.6-38.0); CALCIUM 8.1 MG/DL (8.5-10.1); CHLORIDE 100 MMOL/L (99-107); CREATININE 4.09 MG/DL (0.40-0.90); GLUCOSE 199 MG/DL (70-104); MAGNESIUM 1.6 MG/DL (1.5-2.4); PHOSPHORUS 1.8 MG/DL (2.3-4.5); POTASSIUM 4.5 MMOL/L (3.5-5.1); SODIUM 137 MMOL/L (135-145); TOTAL PROTEIN 4.7 G/DL (6.4-8.2); eGFR 11 ML/MIN
[2017-11-15 06:24] LABS: PARTIAL THROMBOPLASTIN TIME 37 SECONDS (22-32); PROTHROMBIN TIME 10.5 SECONDS (9.0-12.0)
[2017-11-15] MEDS: pantoprazole 40mg Tablet.DR PO SCH (07:30)
[2017-11-15] MEDS: sevelamer carbonate 800mg tablet PO SCH ×3 (07:30→17:30)
[2017-11-15] MEDS ORDERED: normal saline 1000ml 250 ML IV PRN (08:00)
[2017-11-15] MEDS: ascorbic acid 500mg tablet PO SCH (08:00)
[2017-11-15] MEDS: furosemide 40mg tablet PO SCH (08:00)
[2017-11-15] MEDS ORDERED: epoetin 20,000 units/ml inj IV ONE (08:00)
[2017-11-15] MEDS: docusate sod 100mg capsule PO SCH ×2 (08:00→20:03)
[2017-11-15] MEDS: aspirin 81mg tab.chew PO SCH (08:00)
[2017-11-15] MEDS ORDERED: SODIUM THIOSULFATE 12.5 GM/50 ML IV SCH (08:00)
[2017-11-15] MEDS ORDERED: heparin 1,000 units/ml 10ml inj IV ONE (08:00)
[2017-11-15] MEDS: NIFEdipine XL 30mg tablet PO SCH (08:00)
[2017-11-15] MEDS: amLODIPine 5mg tablet PO SCH (08:00)
[2017-11-15] MEDS: chloestyramine/aspartame 4gm packet PO SCH ×2 (08:00→20:00)
[2017-11-15] MEDS: carvedilol 6.25mg tablet PO SCH ×2 (08:00→20:02)
[2017-11-15] MEDS ORDERED: LIDOcaine 1% (10mg/ml) 2ml vial SQ ONE (08:00)
[2017-11-15] MEDS: nystatin 15 GM powder TP SCH ×3 (08:00→21:13)
[2017-11-15] MEDS: lactobacillus rhamnosus 10,000 MMU CELLS/CAPSULE PO SCH ×2 (08:00→21:13)
[2017-11-15 08:20] LABS: ANISOCYTOSIS 3+; PLATELET ESTIMATE NORMAL; POLYCHROMASIA 2+
[2017-11-15 08:21] LABS: SCHISTOCYTES 1+; TARGET CELLS FEW
[2017-11-15 10:00] VITALS: BP 159/69
[2017-11-15] MEDS: NORMAL SALINE IV PRN (13:44)
[2017-11-15] MEDS: SODIUM THIOSULFATE IV PRN (13:44)
[2017-11-15] MEDS: ondansetron/PF 4mg/2ml inj IV PRN ×2 (17:13)
[2017-11-15 18:00] VITALS: BP 144/58
[2017-11-15 20:00] VITALS: BP 144/58
[2017-11-15] MEDS: atorvastatin 10mg tablet PO SCH (21:00)
[2017-11-15] MEDS: folic acid/vitamin B complex w/vitamin C 0.8mg tablet PO SCH (21:00)
[2017-11-15] MEDS: insulin glargine (Lantus) pen - multi-dose SQ SCH (21:00)
[2017-11-15] MEDS: gabapentin 100mg capsule PO SCH (21:12)
[2017-11-15 22:00] VITALS: BP 140/72
[2017-11-16] MEDS: piperacillin-tazo 2.25gm/50ml 50 ML IV SCH ×4 (01:50→20:12)
[2017-11-16] MEDS: HYDROmorphone 2mg tablet PO SCH ×4 (02:09→20:04)
[2017-11-16 05:00] VITALS: BP 150/66
[2017-11-16] MEDS: ondansetron/PF 4mg/2ml inj IV PRN ×3 (05:53→19:33)
[2017-11-16 06:01] LABS: BASOPHILS % (AUTO) 0.6 % (0-1); EOSINOPHILS # (AUTO) 0.1 X10'3 (0-0.9); EOSINOPHILS % (AUTO) 1.2 % (0-6); HEMOGLOBIN 9.1 g/dl (12.0-16.0); LYMPHOCYTES # (AUTO) 0.9 X10'3 (1.1-4.8); LYMPHOCYTES % (AUTO) 13.5 % (21-51); MEAN CORPUSCULAR HEMOGLOBIN 28.6 PG (27.0-31.0); MEAN CORPUSCULAR HGB CONC 32.5 % (33.0-36.5); MEAN CORPUSCULAR VOLUME 88.1 FL (78-98); MEAN PLATELET VOLUME 7.3 FL (7.4-10.4); MONOCYTES # (AUTO) 0.7 X10'3 (0-0.9); MONOCYTES % (AUTO) 10.8 % (2-12); NEUTROPHILS # (AUTO) 5.1 X10'3 (1.8-7.7); NEUTROPHILS % (AUTO) 73.9 % (42-75); PLATELET COUNT 408 X10'3 (140-440); RED BLOOD COUNT 3.18 X10'6 (4.20-5.60); RED CELL DISTRIBUTION WIDTH 20.9 % (11.5-14.5); WHITE BLOOD COUNT 6.8 X10'3 (4.5-11.0)
[2017-11-16 06:12] LABS: PARTIAL THROMBOPLASTIN TIME 36 SECONDS (22-32); PROTHROMBIN TIME 10.5 SECONDS (9.0-12.0)
[2017-11-16 06:16] LABS: ALANINE AMINOTRANSFERASE 14 U/L (12-78); ALBUMIN 0.9 G/DL (3.4-5.0); ALBUMIN/GLOBULIN RATIO 0.2 (1.1-1.5); ALKALINE PHOSPHATASE 113 IU/L (46-116); ANION GAP 11 (8-16); ASPARTATE AMINO TRANSFERASE 8 U/L (10-37); BILIRUBIN,TOTAL 0.2 MG/DL (0.1-1.0); BLOOD UREA NITROGEN 16 MG/DL (7-18); BUN/CREATININE RATIO 4.7 (6.6-38.0); CALCIUM 7.9 MG/DL (8.5-10.1); CHLORIDE 99 MMOL/L (99-107); CREATININE 3.38 MG/DL (0.40-0.90); GLUCOSE 191 MG/DL (70-104); MAGNESIUM 1.7 MG/DL (1.5-2.4); PHOSPHORUS 1.7 MG/DL (2.3-4.5); POTASSIUM 4.1 MMOL/L (3.5-5.1); SODIUM 137 MMOL/L (135-145); TOTAL CARBON DIOXIDE 27.2 MMOL/L (24-32); TOTAL PROTEIN 4.7 G/DL (6.4-8.2); eGFR 14 ML/MIN
[2017-11-16 06:27] LABS: ANISOCYTOSIS 3+; ELLIPTOCYTES FEW; PLATELET ESTIMATE NORMAL; POLYCHROMASIA 2+; SCHISTOCYTES FEW; TARGET CELLS FEW
[2017-11-16 06:28] LABS: TEAR DROP CELLS FEW
[2017-11-16] MEDS: pantoprazole 40mg Tablet.DR PO SCH (07:30)
[2017-11-16] MEDS: sevelamer carbonate 800mg tablet PO SCH ×3 (07:30→17:30)
[2017-11-16] MEDS: heparin, porcine 5000 units/ml vial SQ SCH ×3 (08:00→16:00)
[2017-11-16] MEDS: nystatin 15 GM powder TP SCH ×4 (08:00→22:10)
[2017-11-16] MEDS: docusate sod 100mg capsule PO SCH ×2 (08:00→20:00)
[2017-11-16] MEDS: furosemide 40mg tablet PO SCH (08:00)
[2017-11-16] MEDS: chloestyramine/aspartame 4gm packet PO SCH ×2 (08:00→20:00)
[2017-11-16] MEDS: amLODIPine 5mg tablet PO SCH (08:00)
[2017-11-16] MEDS: carvedilol 6.25mg tablet PO SCH ×2 (08:00→20:04)
[2017-11-16] MEDS: NIFEdipine XL 30mg tablet PO SCH (08:00)
[2017-11-16] MEDS: aspirin 81mg tab.chew PO SCH (08:00)
[2017-11-16] MEDS: lactobacillus rhamnosus 10,000 MMU CELLS/CAPSULE PO SCH ×2 (08:00→20:04)
[2017-11-16] MEDS: ascorbic acid 500mg tablet PO SCH (08:00)
[2017-11-16 10:00] VITALS: BP 158/71
[2017-11-16 18:00] VITALS: BP 159/93
[2017-11-16] MEDS: insulin Lispro (HumaLOG) vial - multi-dose SQ SCH (20:02)
[2017-11-16] MEDS: atorvastatin 10mg tablet PO SCH (20:12)
[2017-11-16] MEDS: folic acid/vitamin B complex w/vitamin C 0.8mg tablet PO SCH (20:12)
[2017-11-16] MEDS: gabapentin 100mg capsule PO SCH (20:12)
[2017-11-16] MEDS: albuterol 2.5 MG/3 ML nebule NEB PRN (20:25)
[2017-11-16] MEDS: insulin glargine (Lantus) pen - multi-dose SQ SCH (21:00)
[2017-11-16 22:00] VITALS: BP 117/60
[2017-11-16] MEDS: proMETHazine 25mg tablet PO PRN (22:25)
[2017-11-17] MEDS: HYDROcodone/acetaminophen 10/325mg tab PO PRN ×2 (00:01→05:02)
[2017-11-17] MEDS: heparin, porcine 5000 units/ml vial SQ SCH ×3 (00:02→16:58)
[2017-11-17] MEDS: piperacillin-tazo 2.25gm/50ml 50 ML IV SCH ×4 (01:38→19:54)
[2017-11-17] MEDS: HYDROmorphone 2mg tablet PO SCH ×4 (01:39→19:54)
[2017-11-17 05:38] LABS: PARTIAL THROMBOPLASTIN TIME 34 SECONDS (22-32); PROTHROMBIN TIME 10.6 SECONDS (9.0-12.0)
[2017-11-17 05:45] LABS: BASOPHILS % (AUTO) 0.5 % (0-1); EOSINOPHILS # (AUTO) 0.1 X10'3 (0-0.9); EOSINOPHILS % (AUTO) 1.2 % (0-6); LYMPHOCYTES # (AUTO) 0.9 X10'3 (1.1-4.8); MEAN CORPUSCULAR HEMOGLOBIN 28.3 PG (27.0-31.0); MEAN CORPUSCULAR HGB CONC 32.3 % (33.0-36.5); MEAN CORPUSCULAR VOLUME 87.6 FL (78-98); MEAN PLATELET VOLUME 7.1 FL (7.4-10.4); MONOCYTES # (AUTO) 0.6 X10'3 (0-0.9); MONOCYTES % (AUTO) 10.5 % (2-12); NEUTROPHILS # (AUTO) 4.6 X10'3 (1.8-7.7); NEUTROPHILS % (AUTO) 73.8 % (42-75); PLATELET COUNT 429 X10'3 (140-440); RED CELL DISTRIBUTION WIDTH 20.9 % (11.5-14.5); WHITE BLOOD COUNT 6.2 X10'3 (4.5-11.0)
[2017-11-17 05:52] LABS: ALANINE AMINOTRANSFERASE 10 U/L (12-78); ALBUMIN 0.8 G/DL (3.4-5.0); ALBUMIN/GLOBULIN RATIO 0.2 (1.1-1.5); ALKALINE PHOSPHATASE 99 IU/L (46-116); ANION GAP 10 (8-16); ASPARTATE AMINO TRANSFERASE 8 U/L (10-37); BILIRUBIN,TOTAL 0.1 MG/DL (0.1-1.0); BLOOD UREA NITROGEN 21 MG/DL (7-18); BUN/CREATININE RATIO 5.5 (6.6-38.0); CHLORIDE 100 MMOL/L (99-107); CREATININE 3.79 MG/DL (0.40-0.90); GLUCOSE 160 MG/DL (70-104); MAGNESIUM 1.8 MG/DL (1.5-2.4); PHOSPHORUS 2.2 MG/DL (2.3-4.5); POTASSIUM 4.2 MMOL/L (3.5-5.1); SODIUM 137 MMOL/L (135-145); TOTAL CARBON DIOXIDE 26.9 MMOL/L (24-32); TOTAL PROTEIN 4.5 G/DL (6.4-8.2); eGFR 12 ML/MIN
[2017-11-17 06:00] VITALS: BP 129/60
[2017-11-17] MEDS: furosemide 40mg tablet PO SCH (08:00)
[2017-11-17] MEDS: chloestyramine/aspartame 4gm packet PO SCH ×2 (08:00→19:54)
[2017-11-17] MEDS: nystatin 15 GM powder TP SCH ×3 (08:00→19:57)
[2017-11-17] MEDS: amLODIPine 5mg tablet PO SCH (08:00)
[2017-11-17] MEDS: docusate sod 100mg capsule PO SCH ×2 (08:00→19:54)
[2017-11-17] MEDS: carvedilol 6.25mg tablet PO SCH ×2 (08:00→19:54)
[2017-11-17] MEDS: NIFEdipine XL 30mg tablet PO SCH (08:00)
[2017-11-17] MEDS: ascorbic acid 500mg tablet PO SCH (08:00)
[2017-11-17] MEDS: pantoprazole 40mg Tablet.DR PO SCH (08:40)
[2017-11-17] MEDS: aspirin 81mg tab.chew PO SCH (08:40)
[2017-11-17] MEDS: lactobacillus rhamnosus 10,000 MMU CELLS/CAPSULE PO SCH ×2 (08:40→19:54)
[2017-11-17] MEDS: sevelamer carbonate 800mg tablet PO SCH ×3 (08:40→17:30)
[2017-11-17 10:00] VITALS: BP 146/71
[2017-11-17 18:00] VITALS: BP 151/99
[2017-11-17] MEDS: ondansetron/PF 4mg/2ml inj IV PRN (18:23)
[2017-11-17] MEDS: insulin Lispro (HumaLOG) vial - multi-dose SQ SCH (18:23)
[2017-11-17] MEDS: gabapentin 100mg capsule PO SCH (19:54)
[2017-11-17] MEDS: folic acid/vitamin B complex w/vitamin C 0.8mg tablet PO SCH (19:55)
[2017-11-17] MEDS: insulin glargine (Lantus) pen - multi-dose SQ SCH (19:55)
[2017-11-17] MEDS: atorvastatin 10mg tablet PO SCH (19:55)
[2017-11-17 22:00] VITALS: BP 168/79
[2017-11-18] VITALS (13 sets, daily range): BP systolic 97–168; BP diastolic 51–79
[2017-11-18] MEDS: HYDROmorphone 2mg tablet PO SCH ×4 (01:46→20:17)
[2017-11-18] MEDS: piperacillin-tazo 2.25gm/50ml 50 ML IV SCH ×4 (01:46→20:17)
[2017-11-18] MEDS: heparin, porcine 5000 units/ml vial SQ SCH ×3 (01:46→16:53)
[2017-11-18] MEDS: HYDROcodone/acetaminophen 10/325mg tab PO PRN ×2 (04:25→18:56)
[2017-11-18] MEDS: sevelamer carbonate 800mg tablet PO SCH ×3 (07:30→17:30)
[2017-11-18] MEDS: pantoprazole 40mg Tablet.DR PO SCH (07:41)
[2017-11-18] MEDS: lactobacillus rhamnosus 10,000 MMU CELLS/CAPSULE PO SCH ×2 (07:42→20:17)
[2017-11-18] MEDS: docusate sod 100mg capsule PO SCH ×2 (08:00→20:00)
[2017-11-18] MEDS: furosemide 40mg tablet PO SCH (08:00)
[2017-11-18] MEDS ORDERED: heparin 1,000 units/ml 10ml inj IV ONE (08:00)
[2017-11-18] MEDS: aspirin 81mg tab.chew PO SCH (08:00)
[2017-11-18] MEDS ORDERED: heparin 1,000unit/ml 10ml vial 10 ML IV ONE (08:00)
[2017-11-18] MEDS ORDERED: albumin (human) 25% 100ml IV 100 ML IV PRN (08:00)
[2017-11-18] MEDS: chloestyramine/aspartame 4gm packet PO SCH ×2 (08:00→20:00)
[2017-11-18] MEDS: carvedilol 6.25mg tablet PO SCH ×2 (08:00→20:17)
[2017-11-18] MEDS: nystatin 15 GM powder TP SCH ×3 (08:00→20:19)
[2017-11-18] MEDS: amLODIPine 5mg tablet PO SCH (08:00)
[2017-11-18] MEDS: ascorbic acid 500mg tablet PO SCH (08:00)
[2017-11-18] MEDS: NIFEdipine XL 30mg tablet PO SCH (08:00)
[2017-11-18] MEDS ORDERED: heparin 1,000 units/ml 10ml inj HE ONE ×2 (08:00)
[2017-11-18] MEDS ORDERED: LIDOcaine 1% (10mg/ml) 2ml vial SQ ONE (08:20)
[2017-11-18 10:02] LABS: BASOPHILS % (AUTO) 0.8 % (0-1); EOSINOPHILS # (AUTO) 0.1 X10'3 (0-0.9); EOSINOPHILS % (AUTO) 1.2 % (0-6); HEMATOCRIT 25.5 % (35.0-45.0); HEMOGLOBIN 8.2 g/dl (12.0-16.0); LYMPHOCYTES # (AUTO) 0.7 X10'3 (1.1-4.8); LYMPHOCYTES % (AUTO) 11.9 % (21-51); MEAN CORPUSCULAR HEMOGLOBIN 28.7 PG (27.0-31.0); MEAN CORPUSCULAR HGB CONC 32.2 % (33.0-36.5); MEAN CORPUSCULAR VOLUME 89.2 FL (78-98); MEAN PLATELET VOLUME 6.9 FL (7.4-10.4); MONOCYTES # (AUTO) 0.7 X10'3 (0-0.9); MONOCYTES % (AUTO) 10.7 % (2-12); NEUTROPHILS # (AUTO) 4.6 X10'3 (1.8-7.7); NEUTROPHILS % (AUTO) 75.4 % (42-75); PLATELET COUNT 453 X10'3 (140-440); RED BLOOD COUNT 2.86 X10'6 (4.20-5.60); RED CELL DISTRIBUTION WIDTH 21.1 % (11.5-14.5); WHITE BLOOD COUNT 6.1 X10'3 (4.5-11.0)
[2017-11-18 10:09] LABS: PARTIAL THROMBOPLASTIN TIME 36 SECONDS (22-32); PROTHROMBIN TIME 10.7 SECONDS (9.0-12.0)
[2017-11-18 10:16] LABS: ALANINE AMINOTRANSFERASE 10 U/L (12-78); ALBUMIN 0.8 G/DL (3.4-5.0); ALBUMIN/GLOBULIN RATIO 0.2 (1.1-1.5); ALKALINE PHOSPHATASE 96 IU/L (46-116); ANION GAP 8 (8-16); ASPARTATE AMINO TRANSFERASE 9 U/L (10-37); BILIRUBIN,TOTAL 0.2 MG/DL (0.1-1.0); BLOOD UREA NITROGEN 27 MG/DL (7-18); BUN/CREATININE RATIO 6.1 (6.6-38.0); CALCIUM 8.3 MG/DL (8.5-10.1); CHLORIDE 99 MMOL/L (99-107); CREATININE 4.43 MG/DL (0.40-0.90); GLUCOSE 213 MG/DL (70-104); MAGNESIUM 1.8 MG/DL (1.5-2.4); PHOSPHORUS 3.1 MG/DL (2.3-4.5); POTASSIUM 4.7 MMOL/L (3.5-5.1); SODIUM 135 MMOL/L (135-145); TOTAL CARBON DIOXIDE 27.7 MMOL/L (24-32); TOTAL PROTEIN 4.4 G/DL (6.4-8.2); eGFR 10 ML/MIN
[2017-11-18] MEDS ORDERED: povidone-iodine 10% topical ointment 28.4gm TP ONE (11:52)
[2017-11-18] MEDS ORDERED: BUPIVAcaine/PF 2.5mg/ml (0.25%) 10ml vial ONE (11:52)
[2017-11-18] MEDS ORDERED: fentaNYL/PF 50MCG/1 ML 2ML syringe ONE ×2 (12:21→12:30)
[2017-11-18] MEDS ORDERED: midazolam 2 mg/2 ml injection ONE ×2 (12:21→12:56)
[2017-11-18] MEDS ORDERED: ROPIVAcaine 0.5% (5mg/ml) 30ml vial ONE (12:28)
[2017-11-18] MEDS ORDERED: LIDOcaine 2% (20mg/ml) 5ml vial ONE ×2 (12:28)
[2017-11-18] MEDS ORDERED: ringers solution, lacted 1,000 ML IV SCH (13:00)
[2017-11-18] MEDS ORDERED: fentaNYL/PF 50MCG/1 ML 2ML syringe IV PRN ×2 (13:00)
[2017-11-18] MEDS ORDERED: ondansetron/PF 4mg/2ml inj IV PRN (13:00)
[2017-11-18] MEDS: NORMAL SALINE IV PRN (15:34)
[2017-11-18] MEDS: SODIUM THIOSULFATE IV PRN (15:34)
[2017-11-18] MEDS: gabapentin 100mg capsule PO SCH (20:17)
[2017-11-18] MEDS: folic acid/vitamin B complex w/vitamin C 0.8mg tablet PO SCH (20:17)
[2017-11-18] MEDS: atorvastatin 10mg tablet PO SCH (20:18)
[2017-11-18] MEDS: insulin glargine (Lantus) pen - multi-dose SQ SCH (20:18)
[2017-11-18 22:49] LABS: CLARITY,URINE CLOUDY (Clear); COLOR,URINE STRAW (Yellow); GLUCOSE, URINE 250 mg/dl (Neg); KETONES,URINE NEGATIVE (Neg); LEUKOCYTE ESTERASE ,URINE MODERATE (Neg); NITRITES, URINE NEGATIVE (Neg); OCCULT BLOOD,URINE MODERATE (Neg); PROTEIN,URINE >=300 mg/dl (Neg); UROBILINOGEN,URINE 0.2 E.U/dL (0.2-1.0)
[2017-11-18 22:52] LABS: UA COLLECTION TYPE STRAIGHT CATH
[2017-11-18 22:57] LABS: WBC,URINE TNTC /HPF (0-4)
[2017-11-18 22:58] LABS: RBC,URINE TNTC /HPF (0-2); SQUAMOUS EPITHELIAL CELL,UR NONE SEEN /LPF (FEW); TRANSITIONAL EPI CELLS,URINE FEW /HPF
[2017-11-18 22:59] LABS: BACTERIA,URINE FEW /HPF (Neg)
[2017-11-19] MEDS: heparin, porcine 5000 units/ml vial SQ SCH ×3 (00:37→15:03)
[2017-11-19] MEDS: HYDROcodone/acetaminophen 10/325mg tab PO PRN ×3 (00:38→21:13)
[2017-11-19] MEDS: piperacillin-tazo 2.25gm/50ml 50 ML IV SCH ×4 (02:55→19:19)
[2017-11-19] MEDS: HYDROmorphone 2mg tablet PO SCH ×4 (02:56→19:20)
[2017-11-19 06:00] VITALS: BP 149/72
[2017-11-19] MEDS: sevelamer carbonate 800mg tablet PO SCH ×3 (07:30→17:30)
[2017-11-19] MEDS: ondansetron 4mg rapidly disintigrating tab PO PRN ×2 (07:52→19:18)
[2017-11-19] MEDS: docusate sod 100mg capsule PO SCH ×2 (07:58→19:31)
[2017-11-19] MEDS: furosemide 40mg tablet PO SCH (07:59)
[2017-11-19] MEDS: chloestyramine/aspartame 4gm packet PO SCH ×2 (07:59→19:33)
[2017-11-19] MEDS: amLODIPine 5mg tablet PO SCH (07:59)
[2017-11-19] MEDS: ascorbic acid 500mg tablet PO SCH (08:00)
[2017-11-19] MEDS: NIFEdipine XL 30mg tablet PO SCH (08:00)
[2017-11-19] MEDS: aspirin 81mg tab.chew PO SCH (08:07)
[2017-11-19] MEDS: lactobacillus rhamnosus 10,000 MMU CELLS/CAPSULE PO SCH ×2 (08:07→19:20)
[2017-11-19] MEDS: carvedilol 6.25mg tablet PO SCH ×2 (08:08→19:19)
[2017-11-19] MEDS: pantoprazole 40mg Tablet.DR PO SCH (08:08)
[2017-11-19] MEDS: nystatin 15 GM powder TP SCH ×3 (08:55→21:14)
[2017-11-19 09:14] LABS: BASOPHILS % (AUTO) 0.7 % (0-1); EOSINOPHILS # (AUTO) 0.1 X10'3 (0-0.9); EOSINOPHILS % (AUTO) 1.7 % (0-6); HEMATOCRIT 23.4 % (35.0-45.0); HEMOGLOBIN 7.5 g/dl (12.0-16.0); LYMPHOCYTES # (AUTO) 0.6 X10'3 (1.1-4.8); LYMPHOCYTES % (AUTO) 10.4 % (21-51); MEAN CORPUSCULAR HEMOGLOBIN 28.5 PG (27.0-31.0); MEAN CORPUSCULAR HGB CONC 32.2 % (33.0-36.5); MEAN CORPUSCULAR VOLUME 88.7 FL (78-98); MEAN PLATELET VOLUME 6.5 FL (7.4-10.4); MONOCYTES # (AUTO) 0.6 X10'3 (0-0.9); MONOCYTES % (AUTO) 11.2 % (2-12); PLATELET COUNT 404 X10'3 (140-440); RED BLOOD COUNT 2.64 X10'6 (4.20-5.60); RED CELL DISTRIBUTION WIDTH 21.9 % (11.5-14.5); WHITE BLOOD COUNT 5.3 X10'3 (4.5-11.0)
[2017-11-19 09:24] LABS: PARTIAL THROMBOPLASTIN TIME 43 SECONDS (22-32); PROTHROMBIN TIME 10.6 SECONDS (9.0-12.0)
[2017-11-19 09:27] LABS: ALANINE AMINOTRANSFERASE 6 U/L (12-78); ALBUMIN 0.7 G/DL (3.4-5.0); ALBUMIN/GLOBULIN RATIO 0.2 (1.1-1.5); ALKALINE PHOSPHATASE 101 IU/L (46-116); ANION GAP 8 (8-16); ASPARTATE AMINO TRANSFERASE 8 U/L (10-37); BILIRUBIN,TOTAL 0.1 MG/DL (0.1-1.0); BLOOD UREA NITROGEN 19 MG/DL (7-18); BUN/CREATININE RATIO 5.4 (6.6-38.0); CALCIUM 7.9 MG/DL (8.5-10.1); CHLORIDE 100 MMOL/L (99-107); CREATININE 3.53 MG/DL (0.40-0.90); GLUCOSE 177 MG/DL (70-104); MAGNESIUM 1.5 MG/DL (1.5-2.4); PHOSPHORUS 2.9 MG/DL (2.3-4.5); POTASSIUM 4.3 MMOL/L (3.5-5.1); SODIUM 136 MMOL/L (135-145); TOTAL PROTEIN 4.2 G/DL (6.4-8.2); eGFR 13 ML/MIN
[2017-11-19 10:00] VITALS: BP 137/59
[2017-11-19 18:00] VITALS: BP 153/66
[2017-11-19] MEDS: apixaban 2.5mg tablet PO SCH (19:19)
[2017-11-19] MEDS: insulin Lispro (HumaLOG) vial - multi-dose SQ SCH (19:43)
[2017-11-19] MEDS: insulin glargine (Lantus) pen - multi-dose SQ SCH (21:00)
[2017-11-19] MEDS: gabapentin 100mg capsule PO SCH (21:10)
[2017-11-19] MEDS: folic acid/vitamin B complex w/vitamin C 0.8mg tablet PO SCH (21:11)
[2017-11-19] MEDS: atorvastatin 10mg tablet PO SCH (21:11)
[2017-11-19 22:00] VITALS: BP 157/78
[2017-11-20] MEDS: albuterol 2.5 MG/3 ML nebule NEB PRN ×2 (01:46→19:32)
[2017-11-20] MEDS: HYDROmorphone 2mg tablet PO SCH ×5 (02:15→20:50)
[2017-11-20] MEDS: piperacillin-tazo 2.25gm/50ml 50 ML IV SCH ×4 (02:15→21:04)
[2017-11-20 06:00] VITALS: BP 176/83
[2017-11-20 06:32] LABS: BASOPHILS # (AUTO) 0.1 X10'3 (0-0.2); BASOPHILS % (AUTO) 0.9 % (0-1); EOSINOPHILS # (AUTO) 0.1 X10'3 (0-0.9); HEMATOCRIT 25.3 % (35.0-45.0); HEMOGLOBIN 8.1 g/dl (12.0-16.0); LYMPHOCYTES # (AUTO) 0.9 X10'3 (1.1-4.8); LYMPHOCYTES % (AUTO) 15.4 % (21-51); MEAN CORPUSCULAR HEMOGLOBIN 28.2 PG (27.0-31.0); MEAN CORPUSCULAR HGB CONC 32.1 % (33.0-36.5); MEAN CORPUSCULAR VOLUME 87.8 FL (78-98); MEAN PLATELET VOLUME 6.7 FL (7.4-10.4); MONOCYTES # (AUTO) 0.6 X10'3 (0-0.9); MONOCYTES % (AUTO) 11.2 % (2-12); NEUTROPHILS # (AUTO) 3.9 X10'3 (1.8-7.7); NEUTROPHILS % (AUTO) 70.5 % (42-75); PLATELET COUNT 446 X10'3 (140-440); RED BLOOD COUNT 2.88 X10'6 (4.20-5.60); RED CELL DISTRIBUTION WIDTH 21.7 % (11.5-14.5); WHITE BLOOD COUNT 5.6 X10'3 (4.5-11.0)
[2017-11-20 06:49] LABS: ALANINE AMINOTRANSFERASE 9 U/L (12-78); ALBUMIN 0.9 G/DL (3.4-5.0); ALBUMIN/GLOBULIN RATIO 0.2 (1.1-1.5); ALKALINE PHOSPHATASE 102 IU/L (46-116); ANION GAP 9 (8-16); ASPARTATE AMINO TRANSFERASE 8 U/L (10-37); BILIRUBIN,TOTAL 0.2 MG/DL (0.1-1.0); BLOOD UREA NITROGEN 24 MG/DL (7-18); BUN/CREATININE RATIO 5.8 (6.6-38.0); CALCIUM 8.3 MG/DL (8.5-10.1); CHLORIDE 100 MMOL/L (99-107); CREATININE 4.12 MG/DL (0.40-0.90); GLUCOSE 205 MG/DL (70-104); MAGNESIUM 1.7 MG/DL (1.5-2.4); PHOSPHORUS 3.3 MG/DL (2.3-4.5); POTASSIUM 4.5 MMOL/L (3.5-5.1); SODIUM 136 MMOL/L (135-145); TOTAL CARBON DIOXIDE 27.5 MMOL/L (24-32); TOTAL PROTEIN 4.6 G/DL (6.4-8.2); eGFR 11 ML/MIN
[2017-11-20 06:51] LABS: PARTIAL THROMBOPLASTIN TIME 41 SECONDS (22-32); PROTHROMBIN TIME 10.4 SECONDS (9.0-12.0)
[2017-11-20] MEDS: sevelamer carbonate 800mg tablet PO SCH ×2 (07:02→12:06)
[2017-11-20] MEDS: docusate sod 100mg capsule PO SCH ×2 (07:03→20:00)
[2017-11-20] MEDS: apixaban 2.5mg tablet PO SCH ×2 (07:04→21:04)
[2017-11-20] MEDS: NIFEdipine XL 30mg tablet PO SCH (07:05)
[2017-11-20] MEDS: amLODIPine 5mg tablet PO SCH (07:05)
[2017-11-20] MEDS: furosemide 40mg tablet PO SCH (07:05)
[2017-11-20] MEDS: ascorbic acid 500mg tablet PO SCH (07:05)
[2017-11-20] MEDS: chloestyramine/aspartame 4gm packet PO SCH ×2 (07:05→20:00)
[2017-11-20] MEDS: carvedilol 6.25mg tablet PO SCH ×2 (07:15→20:00)
[2017-11-20] MEDS: lactobacillus rhamnosus 10,000 MMU CELLS/CAPSULE PO SCH ×2 (07:15→21:04)
[2017-11-20] MEDS: pantoprazole 40mg Tablet.DR PO SCH (07:15)
[2017-11-20] MEDS: aspirin 81mg tab.chew PO SCH (07:15)
[2017-11-20] MEDS: nystatin 15 GM powder TP SCH ×3 (07:16→21:10)
[2017-11-20 07:18] LABS: PLATELET ESTIMATE INCREASED
[2017-11-20 07:19] LABS: ANISOCYTOSIS 3+; HYPOCHROMASIA 1+; POLYCHROMASIA 1+; ROULEAUX 1+
[2017-11-20] MEDS ORDERED: LIDOcaine 1% (10mg/ml) 2ml vial SQ ONE (08:00)
[2017-11-20] MEDS ORDERED: heparin 1,000 units/ml 10ml inj IV ONE (08:00)
[2017-11-20] MEDS ORDERED: epoetin 20,000 units/ml inj IV ONE (08:00)
[2017-11-20] MEDS ORDERED: normal saline 1000ml 250 ML IV PRN (08:00)
[2017-11-20] MEDS: SODIUM THIOSULFATE IV PRN ×2 (09:29→09:32)
[2017-11-20] MEDS: NORMAL SALINE IV PRN ×2 (09:29→09:32)
[2017-11-20 10:00] VITALS: BP 128/59
[2017-11-20] MEDS: HYDROcodone/acetaminophen 10/325mg tab PO PRN (11:45)
[2017-11-20] MEDS: ondansetron 4mg rapidly disintigrating tab PO PRN (16:47)
[2017-11-20 18:00] VITALS: BP 126/66
[2017-11-20] MEDS: ondansetron/PF 4mg/2ml inj IV PRN (20:51)
[2017-11-20] MEDS: atorvastatin 10mg tablet PO SCH (21:00)
[2017-11-20] MEDS: folic acid/vitamin B complex w/vitamin C 0.8mg tablet PO SCH (21:00)
[2017-11-20] MEDS: insulin glargine (Lantus) pen - multi-dose SQ SCH (21:00)
[2017-11-20] MEDS: gabapentin 100mg capsule PO SCH (21:04)
[2017-11-20 22:00] VITALS: BP 168/75
[2017-11-21] MEDS: proMETHazine 25mg tablet PO PRN (01:23)
[2017-11-21] MEDS: piperacillin-tazo 2.25gm/50ml 50 ML IV SCH ×4 (01:23→20:35)
[2017-11-21] MEDS: HYDROmorphone 2mg tablet PO SCH ×4 (01:24→20:45)
[2017-11-21 02:06] VITALS: BP 157/56
[2017-11-21 06:00] VITALS: BP 144/70
[2017-11-21 07:30] VITALS: BP 152/75
[2017-11-21] MEDS: chloestyramine/aspartame 4gm packet PO SCH ×2 (08:00→20:00)
[2017-11-21] MEDS: amLODIPine 5mg tablet PO SCH (08:00)
[2017-11-21] MEDS: ascorbic acid 500mg tablet PO SCH (08:00)
[2017-11-21] MEDS: docusate sod 100mg capsule PO SCH ×2 (08:00→20:00)
[2017-11-21] MEDS: carvedilol 6.25mg tablet PO SCH ×2 (08:26→20:45)
[2017-11-21] MEDS: pantoprazole 40mg Tablet.DR PO SCH (08:26)
[2017-11-21] MEDS: furosemide 40mg tablet PO SCH (08:26)
[2017-11-21] MEDS: NIFEdipine XL 30mg tablet PO SCH (08:26)
[2017-11-21] MEDS: apixaban 2.5mg tablet PO SCH ×2 (08:26→20:00)
[2017-11-21] MEDS: aspirin 81mg tab.chew PO SCH (08:26)
[2017-11-21] MEDS: lactobacillus rhamnosus 10,000 MMU CELLS/CAPSULE PO SCH ×2 (08:26→20:45)
[2017-11-21] MEDS: nystatin 15 GM powder TP SCH ×3 (08:27→21:15)
[2017-11-21 10:00] VITALS: BP 169/57
[2017-11-21] MEDS: ondansetron 4mg rapidly disintigrating tab PO PRN (12:22)
[2017-11-21 18:00] VITALS: BP 152/61
[2017-11-21] MEDS: ondansetron/PF 4mg/2ml inj IV PRN (19:00)
[2017-11-21] MEDS: nitroGLYCERIN 0.4mg SUBLingual tab SL PRN (19:12)
[2017-11-21] MEDS: albuterol 2.5 MG/3 ML nebule NEB PRN (19:24)
[2017-11-21] MEDS: atorvastatin 10mg tablet PO SCH (20:45)
[2017-11-21] MEDS: folic acid/vitamin B complex w/vitamin C 0.8mg tablet PO SCH (20:45)
[2017-11-21] MEDS: gabapentin 100mg capsule PO SCH (20:45)
[2017-11-21] MEDS: insulin glargine (Lantus) pen - multi-dose SQ SCH (21:00)
[2017-11-21 22:00] VITALS: BP 141/65
[2017-11-22] MEDS: HYDROmorphone 2mg tablet PO SCH ×4 (02:00→20:22)
[2017-11-22] MEDS: ondansetron 4mg rapidly disintigrating tab PO PRN (02:01)
[2017-11-22] MEDS: piperacillin-tazo 2.25gm/50ml 50 ML IV SCH ×4 (02:10→20:21)
[2017-11-22] MEDS: nitroGLYCERIN 0.4mg SUBLingual tab SL PRN ×2 (04:56→17:54)
[2017-11-22 04:59] VITALS: BP 143/60
[2017-11-22 06:00] VITALS: BP 145/65
[2017-11-22] MEDS ORDERED: heparin 1,000 units/ml 10ml inj HE ONE ×2 (08:00)
[2017-11-22] MEDS ORDERED: epoetin 20,000 units/ml inj IV ONE (08:00)
[2017-11-22] MEDS ORDERED: normal saline 1000ml 250 ML IV PRN (08:00)
[2017-11-22] MEDS: NIFEdipine XL 30mg tablet PO SCH (08:00)
[2017-11-22] MEDS ORDERED: heparin 1,000 units/ml 10ml inj IV ONE (08:00)
[2017-11-22] MEDS: chloestyramine/aspartame 4gm packet PO SCH ×2 (08:00→20:00)
[2017-11-22] MEDS: docusate sod 100mg capsule PO SCH ×2 (08:00→20:00)
[2017-11-22] MEDS: apixaban 2.5mg tablet PO SCH ×2 (08:00→20:21)
[2017-11-22] MEDS: carvedilol 6.25mg tablet PO SCH ×2 (08:00→20:22)
[2017-11-22] MEDS ORDERED: albumin (human) 25% 100ml IV 100 ML IV PRN (08:00)
[2017-11-22] MEDS ORDERED: LIDOcaine 1% (10mg/ml) 2ml vial SQ ONE (08:00)
[2017-11-22] MEDS: amLODIPine 5mg tablet PO SCH (08:00)
[2017-11-22] MEDS ORDERED: heparin 1,000unit/ml 10ml vial 10 ML IV ONE (08:00)
[2017-11-22] MEDS: furosemide 40mg tablet PO SCH (08:00)
[2017-11-22] MEDS: aspirin 81mg tab.chew PO SCH (08:20)
[2017-11-22] MEDS: pantoprazole 40mg Tablet.DR PO SCH (08:20)
[2017-11-22] MEDS: ascorbic acid 500mg tablet PO SCH (08:20)
[2017-11-22] MEDS: lactobacillus rhamnosus 10,000 MMU CELLS/CAPSULE PO SCH ×2 (08:21→20:32)
[2017-11-22] MEDS: nystatin 15 GM powder TP SCH ×3 (08:23→20:38)
[2017-11-22 08:30] LABS: BASOPHILS # (AUTO) 0.1 X10'3 (0-0.2); EOSINOPHILS # (AUTO) 0.2 X10'3 (0-0.9); EOSINOPHILS % (AUTO) 2.5 % (0-6); HEMATOCRIT 26.4 % (35.0-45.0); HEMOGLOBIN 8.4 g/dl (12.0-16.0); LYMPHOCYTES # (AUTO) 0.7 X10'3 (1.1-4.8); LYMPHOCYTES % (AUTO) 11.1 % (21-51); MEAN CORPUSCULAR HEMOGLOBIN 27.9 PG (27.0-31.0); MEAN CORPUSCULAR HGB CONC 31.7 % (33.0-36.5); MEAN PLATELET VOLUME 6.7 FL (7.4-10.4); MONOCYTES # (AUTO) 0.6 X10'3 (0-0.9); MONOCYTES % (AUTO) 9.6 % (2-12); NEUTROPHILS # (AUTO) 4.7 X10'3 (1.8-7.7); NEUTROPHILS % (AUTO) 75.8 % (42-75); PLATELET COUNT 515 X10'3 (140-440); RED BLOOD COUNT 3.01 X10'6 (4.20-5.60); RED CELL DISTRIBUTION WIDTH 21.3 % (11.5-14.5); WHITE BLOOD COUNT 6.2 X10'3 (4.5-11.0)
[2017-11-22] MEDS: insulin Lispro (HumaLOG) vial - multi-dose SQ SCH ×2 (08:33→18:57)
[2017-11-22 09:27] LABS: ANISOCYTOSIS 3+; HYPOCHROMASIA 1+; PLATELET ESTIMATE INCREASED; POLYCHROMASIA 1+
[2017-11-22 09:28] LABS: STOMATOCYTES 1+
[2017-11-22] MEDS: NORMAL SALINE IV PRN (09:30)
[2017-11-22] MEDS: SODIUM THIOSULFATE IV PRN (09:30)
[2017-11-22 10:00] VITALS: BP 106/81
[2017-11-22 18:00] VITALS: BP 174/81
[2017-11-22] MEDS: albuterol 2.5 MG/3 ML nebule NEB PRN (18:15)
[2017-11-22] MEDS: ondansetron/PF 4mg/2ml inj IV PRN (18:46)
[2017-11-22] MEDS: gabapentin 100mg capsule PO SCH (20:21)
[2017-11-22] MEDS: atorvastatin 10mg tablet PO SCH (20:22)
[2017-11-22] MEDS: folic acid/vitamin B complex w/vitamin C 0.8mg tablet PO SCH (20:33)
[2017-11-22] MEDS: insulin glargine (Lantus) pen - multi-dose SQ SCH (21:00)
[2017-11-22 22:00] VITALS: BP 151/66
[2017-11-23] MEDS: piperacillin-tazo 2.25gm/50ml 50 ML IV SCH ×4 (02:14→21:42)
[2017-11-23] MEDS: HYDROmorphone 2mg tablet PO SCH ×4 (02:14→21:41)
[2017-11-23 07:00] VITALS: BP 152/64
[2017-11-23] MEDS: docusate sod 100mg capsule PO SCH ×2 (07:01→20:00)
[2017-11-23] MEDS: amLODIPine 5mg tablet PO SCH (07:02)
[2017-11-23] MEDS: chloestyramine/aspartame 4gm packet PO SCH ×2 (07:02→20:00)
[2017-11-23] MEDS: ascorbic acid 500mg tablet PO SCH (07:03)
[2017-11-23] MEDS: nystatin 15 GM powder TP SCH ×3 (07:14→21:00)
[2017-11-23] MEDS: pantoprazole 40mg Tablet.DR PO SCH (07:14)
[2017-11-23] MEDS: apixaban 2.5mg tablet PO SCH ×2 (07:14→21:41)
[2017-11-23] MEDS: NIFEdipine XL 30mg tablet PO SCH (07:14)
[2017-11-23] MEDS: ondansetron/PF 4mg/2ml inj IV PRN ×2 (07:14→14:18)
[2017-11-23] MEDS: aspirin 81mg tab.chew PO SCH (07:14)
[2017-11-23] MEDS: carvedilol 6.25mg tablet PO SCH ×2 (07:14→21:41)
[2017-11-23] MEDS: lactobacillus rhamnosus 10,000 MMU CELLS/CAPSULE PO SCH ×2 (07:14→21:41)
[2017-11-23] MEDS: furosemide 40mg tablet PO SCH (08:43)
[2017-11-23 10:00] VITALS: BP 129/53
[2017-11-23] MEDS: proMETHazine 25mg tablet PO PRN (17:50)
[2017-11-23 18:00] VITALS: BP 133/77
[2017-11-23] MEDS: insulin Lispro (HumaLOG) vial - multi-dose SQ SCH (19:32)
[2017-11-23] MEDS: albuterol 2.5 MG/3 ML nebule NEB PRN (20:28)
[2017-11-23] MEDS: insulin glargine (Lantus) pen - multi-dose SQ SCH (21:00)
[2017-11-23] MEDS: atorvastatin 10mg tablet PO SCH (21:00)
[2017-11-23] MEDS: folic acid/vitamin B complex w/vitamin C 0.8mg tablet PO SCH (21:00)
[2017-11-23] MEDS: gabapentin 100mg capsule PO SCH (21:41)
[2017-11-23 22:00] VITALS: BP 153/63
[2017-11-24] MEDS: HYDROmorphone 2mg tablet PO SCH ×4 (01:45→20:23)
[2017-11-24] MEDS: piperacillin-tazo 2.25gm/50ml 50 ML IV SCH ×4 (01:46→20:16)
[2017-11-24] MEDS: nitroGLYCERIN 0.4mg SUBLingual tab SL PRN ×4 (05:14→22:59)
[2017-11-24 06:00] VITALS: BP 150/71
[2017-11-24] MEDS: chloestyramine/aspartame 4gm packet PO SCH ×2 (08:00→20:00)
[2017-11-24] MEDS: docusate sod 100mg capsule PO SCH ×2 (08:00→20:00)
[2017-11-24] MEDS: apixaban 2.5mg tablet PO SCH ×2 (08:00→20:23)
[2017-11-24] MEDS: NIFEdipine XL 30mg tablet PO SCH (08:00)
[2017-11-24] MEDS: nystatin 15 GM powder TP SCH ×3 (08:00→20:24)
[2017-11-24] MEDS: furosemide 40mg tablet PO SCH (08:00)
[2017-11-24] MEDS: amLODIPine 5mg tablet PO SCH (08:00)
[2017-11-24] MEDS: ascorbic acid 500mg tablet PO SCH (08:00)
[2017-11-24] MEDS: pantoprazole 40mg Tablet.DR PO SCH (08:33)
[2017-11-24] MEDS: ondansetron 4mg rapidly disintigrating tab PO PRN (08:34)
[2017-11-24] MEDS: lactobacillus rhamnosus 10,000 MMU CELLS/CAPSULE PO SCH ×2 (08:35→20:21)
[2017-11-24] MEDS: carvedilol 6.25mg tablet PO SCH ×2 (08:36→20:23)
[2017-11-24] MEDS: aspirin 81mg tab.chew PO SCH (08:36)
[2017-11-24 10:00] VITALS: BP 146/52
[2017-11-24] MEDS: albuterol 2.5 MG/3 ML nebule NEB PRN (15:10)
[2017-11-24 18:00] VITALS: BP 154/64
[2017-11-24] MEDS: ondansetron/PF 4mg/2ml inj IV PRN (18:53)
[2017-11-24] MEDS: folic acid/vitamin B complex w/vitamin C 0.8mg tablet PO SCH (20:21)
[2017-11-24] MEDS: gabapentin 100mg capsule PO SCH (20:23)
[2017-11-24] MEDS: atorvastatin 10mg tablet PO SCH (20:23)
[2017-11-24] MEDS: insulin glargine (Lantus) pen - multi-dose SQ SCH (20:40)
[2017-11-24 22:00] VITALS: BP 170/71
[2017-11-24 22:33] VITALS: BP 156/80
[2017-11-25] MEDS: acetaminophen 325mg tablet PO PRN ×2 (00:39→23:01)
[2017-11-25] MEDS: piperacillin-tazo 2.25gm/50ml 50 ML IV SCH ×4 (01:33→19:32)
[2017-11-25] MEDS: HYDROmorphone 2mg tablet PO SCH ×4 (01:34→19:33)
[2017-11-25 05:00] VITALS: BP 147/81
[2017-11-25] MEDS: albuterol 2.5 MG/3 ML nebule NEB PRN ×2 (05:06→20:51)
[2017-11-25 06:50] LABS: BASOPHILS % (AUTO) 0.4 % (0-1); EOSINOPHILS # (AUTO) 0.1 X10'3 (0-0.9); EOSINOPHILS % (AUTO) 2.1 % (0-6); HEMATOCRIT 26.8 % (35.0-45.0); HEMOGLOBIN 8.7 g/dl (12.0-16.0); LYMPHOCYTES # (AUTO) 0.8 X10'3 (1.1-4.8); LYMPHOCYTES % (AUTO) 12.9 % (21-51); MEAN CORPUSCULAR HEMOGLOBIN 28.6 PG (27.0-31.0); MEAN CORPUSCULAR HGB CONC 32.5 % (33.0-36.5); MEAN CORPUSCULAR VOLUME 87.9 FL (78-98); MEAN PLATELET VOLUME 6.8 FL (7.4-10.4); MONOCYTES # (AUTO) 0.6 X10'3 (0-0.9); MONOCYTES % (AUTO) 9.7 % (2-12); NEUTROPHILS # (AUTO) 4.9 X10'3 (1.8-7.7); NEUTROPHILS % (AUTO) 74.9 % (42-75); PLATELET COUNT 513 X10'3 (140-440); RED BLOOD COUNT 3.05 X10'6 (4.20-5.60); RED CELL DISTRIBUTION WIDTH 21.8 % (11.5-14.5); WHITE BLOOD COUNT 6.5 X10'3 (4.5-11.0)
[2017-11-25] MEDS: pantoprazole 40mg Tablet.DR PO SCH (07:30)
[2017-11-25 07:36] LABS: ANISOCYTOSIS 3+; PLATELET ESTIMATE INCREASED; ROULEAUX 1+
[2017-11-25] MEDS: ondansetron/PF 4mg/2ml inj IV PRN ×2 (07:37→19:35)
[2017-11-25] MEDS: chloestyramine/aspartame 4gm packet PO SCH ×2 (08:00→19:46)
[2017-11-25] MEDS ORDERED: normal saline 1000ml 100 ML IV PRN (08:00)
[2017-11-25] MEDS ORDERED: normal saline 1000ml 250 ML IV PRN (08:00)
[2017-11-25] MEDS: ascorbic acid 500mg tablet PO SCH (08:00)
[2017-11-25] MEDS ORDERED: epoetin 20,000 units/ml inj IV ONE (08:00)
[2017-11-25] MEDS: docusate sod 100mg capsule PO SCH ×2 (08:00→19:46)
[2017-11-25] MEDS: aspirin 81mg tab.chew PO SCH (08:00)
[2017-11-25] MEDS: furosemide 40mg tablet PO SCH (08:00)
[2017-11-25] MEDS: nystatin 15 GM powder TP SCH ×3 (08:00→21:55)
[2017-11-25] MEDS: amLODIPine 5mg tablet PO SCH (08:00)
[2017-11-25] MEDS: carvedilol 6.25mg tablet PO SCH ×2 (08:00→19:33)
[2017-11-25] MEDS: lactobacillus rhamnosus 10,000 MMU CELLS/CAPSULE PO SCH ×2 (08:00→19:34)
[2017-11-25] MEDS ORDERED: LIDOcaine 1% (10mg/ml) 2ml vial SQ ONE (08:00)
[2017-11-25] MEDS: apixaban 2.5mg tablet PO SCH ×2 (08:00→19:33)
[2017-11-25] MEDS: NIFEdipine XL 30mg tablet PO SCH (08:00)
[2017-11-25 10:00] VITALS: BP 158/55
[2017-11-25] MEDS: SODIUM THIOSULFATE IV PRN (10:16)
[2017-11-25] MEDS: NORMAL SALINE IV PRN (10:16)
[2017-11-25 18:00] VITALS: BP 182/82
[2017-11-25] MEDS: folic acid/vitamin B complex w/vitamin C 0.8mg tablet PO SCH (19:43)
[2017-11-25] MEDS: gabapentin 100mg capsule PO SCH (19:43)
[2017-11-25] MEDS: atorvastatin 10mg tablet PO SCH (19:44)
[2017-11-25] MEDS: insulin glargine (Lantus) pen - multi-dose SQ SCH (21:00)
[2017-11-25 22:00] VITALS: BP 162/44
[2017-11-26] MEDS: nitroGLYCERIN 0.4mg SUBLingual tab SL PRN ×2 (01:20→13:31)
[2017-11-26] MEDS: piperacillin-tazo 2.25gm/50ml 50 ML IV SCH ×4 (01:22→19:42)
[2017-11-26] MEDS: HYDROmorphone 2mg tablet PO SCH ×4 (02:28→19:43)
[2017-11-26 05:00] VITALS: BP 146/53
[2017-11-26 07:18] LABS: HBSAG SCREEN Negative (Negative)
[2017-11-26] MEDS: pantoprazole 40mg Tablet.DR PO SCH (07:30)
[2017-11-26] MEDS: aspirin 81mg tab.chew PO SCH (07:41)
[2017-11-26] MEDS: carvedilol 6.25mg tablet PO SCH ×2 (07:41→19:42)
[2017-11-26] MEDS: nystatin 15 GM powder TP SCH ×3 (08:00→19:51)
[2017-11-26] MEDS: chloestyramine/aspartame 4gm packet PO SCH ×2 (08:00→19:49)
[2017-11-26] MEDS: lactobacillus rhamnosus 10,000 MMU CELLS/CAPSULE PO SCH ×2 (08:00→19:42)
[2017-11-26] MEDS: docusate sod 100mg capsule PO SCH ×2 (08:00→19:49)
[2017-11-26] MEDS: furosemide 40mg tablet PO SCH (08:00)
[2017-11-26] MEDS: NIFEdipine XL 30mg tablet PO SCH (08:00)
[2017-11-26] MEDS: ascorbic acid 500mg tablet PO SCH (08:00)
[2017-11-26] MEDS: apixaban 2.5mg tablet PO SCH ×2 (08:00→19:49)
[2017-11-26] MEDS: amLODIPine 5mg tablet PO SCH (08:00)
[2017-11-26] MEDS: ondansetron 4mg rapidly disintigrating tab PO PRN (16:12)
[2017-11-26 18:00] VITALS: BP 154/63
[2017-11-26] MEDS: gabapentin 100mg capsule PO SCH (19:42)
[2017-11-26] MEDS: ondansetron/PF 4mg/2ml inj IV PRN (19:43)
[2017-11-26] MEDS: insulin glargine (Lantus) pen - multi-dose SQ SCH (21:00)
[2017-11-26] MEDS: atorvastatin 10mg tablet PO SCH (21:00)
[2017-11-26] MEDS: folic acid/vitamin B complex w/vitamin C 0.8mg tablet PO SCH (21:00)
[2017-11-26 22:00] VITALS: BP 162/60
[2017-11-27] VITALS (25 sets, daily range): BP systolic 125–168; BP diastolic 53–88
[2017-11-27] MEDS: piperacillin-tazo 2.25gm/50ml 50 ML IV SCH ×4 (01:57→19:09)
[2017-11-27] MEDS: HYDROmorphone 2mg tablet PO SCH ×4 (01:58→19:09)
[2017-11-27 05:29] LABS: BASOPHILS % (AUTO) 0.3 % (0-1); EOSINOPHILS # (AUTO) 0.2 X10'3 (0-0.9); EOSINOPHILS % (AUTO) 2.6 % (0-6); HEMATOCRIT 25.9 % (35.0-45.0); HEMOGLOBIN 8.3 g/dl (12.0-16.0); LYMPHOCYTES # (AUTO) 0.7 X10'3 (1.1-4.8); LYMPHOCYTES % (AUTO) 7.3 % (21-51); MEAN CORPUSCULAR HEMOGLOBIN 28.2 PG (27.0-31.0); MEAN CORPUSCULAR HGB CONC 32.2 % (33.0-36.5); MEAN CORPUSCULAR VOLUME 87.5 FL (78-98); MEAN PLATELET VOLUME 6.8 FL (7.4-10.4); MONOCYTES # (AUTO) 0.8 X10'3 (0-0.9); MONOCYTES % (AUTO) 8.9 % (2-12); NEUTROPHILS # (AUTO) 7.3 X10'3 (1.8-7.7); NEUTROPHILS % (AUTO) 80.9 % (42-75); PLATELET COUNT 486 X10'3 (140-440); RED BLOOD COUNT 2.96 X10'6 (4.20-5.60); RED CELL DISTRIBUTION WIDTH 21.6 % (11.5-14.5)
[2017-11-27 05:34] LABS: INR 1.1 INR; PROTHROMBIN TIME 11.4 SECONDS (9.0-12.0)
[2017-11-27 06:03] LABS: ALANINE AMINOTRANSFERASE 7 U/L (12-78); ALBUMIN/GLOBULIN RATIO 0.2 (1.1-1.5); ALKALINE PHOSPHATASE 99 IU/L (46-116); ANION GAP 12 (8-16); ASPARTATE AMINO TRANSFERASE 9 U/L (10-37); BILIRUBIN,TOTAL 0.2 MG/DL (0.1-1.0); BLOOD UREA NITROGEN 23 MG/DL (7-18); BUN/CREATININE RATIO 5.8 (6.6-38.0); CALCIUM 8.7 MG/DL (8.5-10.1); CHLORIDE 100 MMOL/L (99-107); CREATININE 3.97 MG/DL (0.40-0.90); GLUCOSE 153 MG/DL (70-104); SODIUM 137 MMOL/L (135-145); TOTAL CARBON DIOXIDE 25.4 MMOL/L (24-32); TOTAL PROTEIN 5.2 G/DL (6.4-8.2); eGFR 12 ML/MIN
[2017-11-27] MEDS: pantoprazole 40mg Tablet.DR PO SCH (07:30)
[2017-11-27] MEDS: aspirin 81mg tab.chew PO SCH (07:53)
[2017-11-27] MEDS: docusate sod 100mg capsule PO SCH ×2 (07:53→20:00)
[2017-11-27] MEDS: lactobacillus rhamnosus 10,000 MMU CELLS/CAPSULE PO SCH ×2 (07:53→20:20)
[2017-11-27] MEDS: NIFEdipine XL 30mg tablet PO SCH (07:54)
[2017-11-27] MEDS: amLODIPine 5mg tablet PO SCH (07:54)
[2017-11-27] MEDS: chloestyramine/aspartame 4gm packet PO SCH ×2 (07:54→20:00)
[2017-11-27] MEDS: furosemide 40mg tablet PO SCH (07:54)
[2017-11-27] MEDS: ascorbic acid 500mg tablet PO SCH (07:54)
[2017-11-27] MEDS: apixaban 2.5mg tablet PO SCH ×2 (07:54→20:00)
[2017-11-27] MEDS ORDERED: epoetin 20,000 units/ml inj IV ONE (08:00)
[2017-11-27] MEDS ORDERED: LIDOcaine 1% (10mg/ml) 2ml vial SQ ONE (08:00)
[2017-11-27] MEDS: carvedilol 6.25mg tablet PO SCH ×2 (08:00→20:21)
[2017-11-27] MEDS ORDERED: heparin 1,000unit/ml 10ml vial 10 ML IV ONE (08:00)
[2017-11-27] MEDS ORDERED: normal saline 1000ml 250 ML IV PRN (08:00)
[2017-11-27] MEDS: nystatin 15 GM powder TP SCH ×3 (08:00→20:07)
[2017-11-27] MEDS ORDERED: ringers solution, lacted 1,000 ML IV SCH (08:26)
[2017-11-27] MEDS ORDERED: enalaprilat dihydrate 2.5mg/2ml vial IV PRN (08:30)
[2017-11-27] MEDS ORDERED: proCHLORperazine 10 MG/2 ml inj IV PRN (08:30)
[2017-11-27] MEDS ORDERED: meperidine/PF 25mg/ml syringe IV PRN (08:30)
[2017-11-27] MEDS ORDERED: morphine 4 MG/ML inj SYRINge IV PRN ×2 (08:30)
[2017-11-27] MEDS ORDERED: labetalol 20mg/4ml (5mg/ml) syringe IV PRN (08:30)
[2017-11-27] MEDS ORDERED: ondansetron/PF 4mg/2ml inj IV PRN (08:30)
[2017-11-27] MEDS: ondansetron/PF 4mg/2ml inj IV PRN ×2 (08:45→17:09)
[2017-11-27] MEDS ORDERED: MIDAZolam 5mg/5ml vial ONE (09:20)
[2017-11-27] MEDS ORDERED: propofol inj 20 ML IV ONE (10:18)
[2017-11-27 12:27] LABS: ANISOCYTOSIS 3+; PLATELET ESTIMATE INCREASED
[2017-11-27 12:29] LABS: BURR CELLS FEW; ELLIPTOCYTES FEW; HYPOCHROMASIA 1+; SCHISTOCYTES FEW
[2017-11-27] MEDS: proMETHazine 25mg tablet PO PRN (13:31)
[2017-11-27] MEDS: acetaminophen 325mg tablet PO PRN ×2 (14:28→20:23)
[2017-11-27] MEDS: HYDROmorphone 1 mg/ml syringe IV PRN ×2 (17:35→21:28)
[2017-11-27] MEDS ORDERED: ketorolac trometh. 30mg/ml inj. IV SCH (18:01)
[2017-11-27] MEDS: ketorolac trometh. 30mg/ml inj. IV PRN (19:09)
[2017-11-27] MEDS: insulin glargine (Lantus) pen - multi-dose SQ SCH (20:05)
[2017-11-27] MEDS: atorvastatin 10mg tablet PO SCH (20:06)
[2017-11-27] MEDS: folic acid/vitamin B complex w/vitamin C 0.8mg tablet PO SCH (20:06)
[2017-11-27] MEDS: gabapentin 100mg capsule PO SCH (20:21)
[2017-11-28] MEDS ORDERED: ketorolac trometh. 30mg/ml inj. IV SCH
[2017-11-28] MEDS: HYDROmorphone 1 mg/ml syringe IV PRN ×4 (01:53→16:05)
[2017-11-28] MEDS: piperacillin-tazo 2.25gm/50ml 50 ML IV SCH ×4 (01:53→20:01)
[2017-11-28] MEDS: HYDROmorphone 2mg tablet PO SCH ×4 (01:54→20:01)
[2017-11-28 02:15] VITALS: BP 129/57
[2017-11-28 06:00] VITALS: BP 150/62
[2017-11-28 06:11] LABS: HEMATOCRIT 23.8 % (35.0-45.0); HEMOGLOBIN 7.8 g/dl (12.0-16.0); MEAN CORPUSCULAR HEMOGLOBIN 28.5 PG (27.0-31.0); MEAN CORPUSCULAR HGB CONC 32.5 % (33.0-36.5); MEAN CORPUSCULAR VOLUME 87.6 FL (78-98); MEAN PLATELET VOLUME 6.9 FL (7.4-10.4); PLATELET COUNT 529 X10'3 (140-440); RED BLOOD COUNT 2.72 X10'6 (4.20-5.60); RED CELL DISTRIBUTION WIDTH 21.5 % (11.5-14.5)
[2017-11-28] MEDS: aspirin 81mg tab.chew PO SCH (07:13)
[2017-11-28] MEDS: ondansetron/PF 4mg/2ml inj IV PRN ×3 (07:14→20:01)
[2017-11-28] MEDS: pantoprazole 40mg Tablet.DR PO SCH (07:14)
[2017-11-28] MEDS: lactobacillus rhamnosus 10,000 MMU CELLS/CAPSULE PO SCH ×2 (07:14→20:01)
[2017-11-28] MEDS: docusate sod 100mg capsule PO SCH ×2 (07:28→20:00)
[2017-11-28] MEDS: apixaban 2.5mg tablet PO SCH ×2 (07:28→20:01)
[2017-11-28] MEDS: carvedilol 6.25mg tablet PO SCH ×2 (07:28→20:01)
[2017-11-28] MEDS: chloestyramine/aspartame 4gm packet PO SCH ×2 (07:29→20:00)
[2017-11-28] MEDS: furosemide 40mg tablet PO SCH (07:29)
[2017-11-28] MEDS: ascorbic acid 500mg tablet PO SCH (07:29)
[2017-11-28] MEDS: amLODIPine 5mg tablet PO SCH (07:29)
[2017-11-28] MEDS: NIFEdipine XL 30mg tablet PO SCH (07:29)
[2017-11-28] MEDS ORDERED: normal saline 1000ml 250 ML IV PRN (08:00)
[2017-11-28] MEDS ORDERED: LIDOcaine 1% (10mg/ml) 2ml vial SQ ONE (08:00)
[2017-11-28] MEDS ORDERED: epoetin 20,000 units/ml inj IV ONE (08:00)
[2017-11-28 08:11] LABS: ANISOCYTOSIS 3+; PLATELET ESTIMATE INCREASED
[2017-11-28 08:13] LABS: ELLIPTOCYTES FEW; POIKILOCYTOSIS 1+; POLYCHROMASIA FEW
[2017-11-28] MEDS: nystatin 15 GM powder TP SCH ×3 (09:01→20:08)
[2017-11-28 10:00] VITALS: BP 165/63
[2017-11-28] MEDS: ketorolac trometh. 30mg/ml inj. IV PRN (11:29)
[2017-11-28] MEDS: proMETHazine 25mg tablet PO PRN (11:29)
[2017-11-28 14:00] VITALS: BP 126/50
[2017-11-28] MEDS ORDERED: NORMAL SALINE IV ONE (17:35)
[2017-11-28] MEDS ORDERED: SODIUM THIOSULFATE IV ONE (17:35)
[2017-11-28 18:00] VITALS: BP 104/44
[2017-11-28] MEDS: gabapentin 100mg capsule PO SCH (20:01)
[2017-11-28] MEDS: folic acid/vitamin B complex w/vitamin C 0.8mg tablet PO SCH (20:34)
[2017-11-28] MEDS: insulin glargine (Lantus) pen - multi-dose SQ SCH (20:34)
[2017-11-28] MEDS: atorvastatin 10mg tablet PO SCH (20:34)
[2017-11-28 22:00] VITALS: BP 136/51
[2017-11-29] MEDS: HYDROmorphone 2mg tablet PO SCH ×3 (01:41→14:15)
[2017-11-29] MEDS: piperacillin-tazo 2.25gm/50ml 50 ML IV SCH ×2 (01:42→07:43)
[2017-11-29] MEDS: nitroGLYCERIN 0.4mg SUBLingual tab SL PRN ×3 (03:26→10:08)
[2017-11-29] MEDS: albuterol 2.5 MG/3 ML nebule NEB PRN (04:52)
[2017-11-29 06:00] VITALS: BP 172/62
[2017-11-29] MEDS: lactobacillus rhamnosus 10,000 MMU CELLS/CAPSULE PO SCH (07:42)
[2017-11-29] MEDS: aspirin 81mg tab.chew PO SCH (07:42)
[2017-11-29] MEDS: carvedilol 6.25mg tablet PO SCH (07:43)
[2017-11-29] MEDS: pantoprazole 40mg Tablet.DR PO SCH (07:43)
[2017-11-29] MEDS: ondansetron/PF 4mg/2ml inj IV PRN (07:47)
[2017-11-29] MEDS: apixaban 2.5mg tablet PO SCH (07:50)
[2017-11-29] MEDS: docusate sod 100mg capsule PO SCH (07:50)
[2017-11-29] MEDS: furosemide 40mg tablet PO SCH (07:50)
[2017-11-29] MEDS: amLODIPine 5mg tablet PO SCH (07:51)
[2017-11-29] MEDS: nystatin 15 GM powder TP SCH ×2 (07:51→12:22)
[2017-11-29] MEDS: ascorbic acid 500mg tablet PO SCH (07:51)
[2017-11-29] MEDS: NIFEdipine XL 30mg tablet PO SCH (07:51)
[2017-11-29] MEDS: chloestyramine/aspartame 4gm packet PO SCH (07:51)
[2017-11-29 10:00] VITALS: BP 133/53
[2017-11-30] MEDS ORDERED: normal saline 1000ml 250 ML IV PRN (08:00)
[2017-11-30] MEDS ORDERED: heparin 1,000unit/ml 10ml vial 10 ML IV ONE (08:00)
[2017-11-30] MEDS ORDERED: LIDOcaine 1% (10mg/ml) 2ml vial SQ ONE (08:00)
[2017-11-30] MEDS ORDERED: epoetin 20,000 units/ml inj IV ONE (08:00)
== END 2017-11-29 16:30 | DRG 305 ==
LOC: ORTHO 4S 15:51
PROVIDERS: ADMIT Internal Medicine Critical Care Medicine
PROC: B42H1ZZ Computerized Tomography (CT Scan) of Bilateral Lower Extremity Arteries using Low Osmolar Contrast (ICD-10-PCS; 2017-11-06)
PROC: B4281ZZ Computerized Tomography (CT Scan) of Bilateral Renal Arteries using Low Osmolar Contrast (ICD-10-PCS; 2017-11-06)
PROC: B42C1ZZ Computerized Tomography (CT Scan) of Pelvic Arteries using Low Osmolar Contrast (ICD-10-PCS; 2017-11-06)
PROC: 5A1D70Z Performance of Urinary Filtration, Intermittent, Less than 6 Hours Per Day (ICD-10-PCS; 2017-11-08)
PROC: 5A1D70Z Performance of Urinary Filtration, Intermittent, Less than 6 Hours Per Day (ICD-10-PCS; 2017-11-11)
PROC: 5A1D70Z Performance of Urinary Filtration, Intermittent, Less than 6 Hours Per Day (ICD-10-PCS; 2017-11-13)
PROC: 5A1D70Z Performance of Urinary Filtration, Intermittent, Less than 6 Hours Per Day (ICD-10-PCS; 2017-11-15)
PROC: 5A1D70Z Performance of Urinary Filtration, Intermittent, Less than 6 Hours Per Day (ICD-10-PCS; 2017-11-18)
PROC: 0Y6R0Z0 Detachment at Right 2nd Toe, Complete, Open Approach (ICD-10-PCS; principal; 2017-11-19)
PROC: 5A1D70Z Performance of Urinary Filtration, Intermittent, Less than 6 Hours Per Day (ICD-10-PCS; 2017-11-20)
PROC: 5A1D70Z Performance of Urinary Filtration, Intermittent, Less than 6 Hours Per Day (ICD-10-PCS; 2017-11-22)
PROC: 5A1D70Z Performance of Urinary Filtration, Intermittent, Less than 6 Hours Per Day (ICD-10-PCS; 2017-11-25)
PROC: 0Y6H0Z3 Detachment at Right Lower Leg, Low, Open Approach (ICD-10-PCS; 2017-11-28)
PROC: 5A1D70Z Performance of Urinary Filtration, Intermittent, Less than 6 Hours Per Day (ICD-10-PCS; 2017-11-28)
DX: I73.9 Peripheral vascular disease, unspecified (principal); E83.59 Other disorders of calcium metabolism; I50.9 Heart failure, unspecified; N18.6 End stage renal disease; G81.90 Hemiplegia, unspecified affecting unspecified side; I99.8 Other disorder of circulatory system; R33.9 Retention of urine, unspecified; J45.909 Unspecified asthma, uncomplicated; L05.91 Pilonidal cyst without abscess; Z87.440 Personal history of urinary (tract) infections; Z99.2 Dependence on renal dialysis; Z79.899 Other long term (current) drug therapy; Z88.8 Allergy status to other drugs, medicaments and biological substances; Z88.5 Allergy status to narcotic agent; Z87.891 Personal history of nicotine dependence
CPT/HCPCS: 36415; 75635; 80053; 81001; 82948; 83735; 84100; 85025; 85027; 85610; 85730; 87070; 87075; 87088; 87340; 93005; 93926; 94640; 94760; 97110; 97161; 97530; A4353; A6209; A6212; A6213; A6222; A6250; A6255; A6257; A6258; A6266; A6402; A6446; A6449; A7000; G0257; J0885; J1170; J1644; J1815; J1885; J2001; J2175; J2250; J2405; J2543; J2704; J2795; J3010; J3490; J7030; J7120; Q0169; Q9967

== ENCOUNTER 2017-12-23 10:29 | Outpatient (CLI) | payer MEDICAID ==
[~2017-12-23 10:29] MED LIST changes: +ATOR10TA87 PO; +FOLI0.8T7 PO; +GENT30CR TOP; +HYDR-565 PO; +NIFE90TA2 PO; +POLY17PO10 PO; +SEVE800T8 PO
[2017-12-23] MEDS ORDERED: APIX2.5T PO (17:32)
[2017-12-23] MEDS ORDERED: HYDR4TAB45 PO (17:34)
[2017-12-23] MEDS ORDERED: LEVO50TA8 PO (17:35)
[2017-12-23] MEDS ORDERED: PRAV40TA3 PO (17:36)
[2017-12-23] MEDS ORDERED: PIPE2.2535 IV (17:37)
== END 2017-12-23 13:40 | disposition home or self-care (01) ==
LOC: WOUND CARE 10:29 → EDSTATUS 10:30 → WOUND CARE 13:40
PROVIDERS: ATTEND Surgery
DX: T87.89 Other complications of amputation stump (principal); E11.622 Type 2 diabetes mellitus with other skin ulcer; L89.152 Pressure ulcer of sacral region, stage 2; L98.491 Non-pressure chronic ulcer of skin of other sites limited to breakdown of skin; E11.65 Type 2 diabetes mellitus with hyperglycemia; E11.22 Type 2 diabetes mellitus with diabetic chronic kidney disease; N18.6 End stage renal disease; I50.9 Heart failure, unspecified; G81.90 Hemiplegia, unspecified affecting unspecified side; I73.9 Peripheral vascular disease, unspecified; J45.909 Unspecified asthma, uncomplicated; Z87.891 Personal history of nicotine dependence; Z87.440 Personal history of urinary (tract) infections; Z79.899 Other long term (current) drug therapy; Z99.2 Dependence on renal dialysis; Y83.8 Other surgical procedures as the cause of abnormal reaction of the patient, or of later complication, without mention of misadventure at the time of the procedure
CPT/HCPCS: 36416; 82948; 99215; A6021; A6212; A6223

== ENCOUNTER 2017-12-31 11:04 | Outpatient (CLI) | payer MEDICAID ==
[~2017-12-31 11:04] MED LIST changes: +APIX2.5T PO; +HYDR4TAB45 PO; +LEVO50TA8 PO; +PIPE2.2535 IV; +PRAV40TA3 PO
[2017-12-31] MEDS ORDERED: mupirocin 2% ointment 22GM ONE (11:48)
== END 2017-12-31 12:09 | disposition home or self-care (01) ==
LOC: WOUND CARE 11:04
PROVIDERS: ATTEND Surgery
DX: T87.89 Other complications of amputation stump (principal); E11.622 Type 2 diabetes mellitus with other skin ulcer; L89.152 Pressure ulcer of sacral region, stage 2; L98.491 Non-pressure chronic ulcer of skin of other sites limited to breakdown of skin; E11.65 Type 2 diabetes mellitus with hyperglycemia; E11.22 Type 2 diabetes mellitus with diabetic chronic kidney disease; N18.6 End stage renal disease; I50.9 Heart failure, unspecified; G81.90 Hemiplegia, unspecified affecting unspecified side; I73.9 Peripheral vascular disease, unspecified; J45.909 Unspecified asthma, uncomplicated; Z87.891 Personal history of nicotine dependence; Z87.440 Personal history of urinary (tract) infections; Z79.899 Other long term (current) drug therapy; Z99.2 Dependence on renal dialysis; Y83.8 Other surgical procedures as the cause of abnormal reaction of the patient, or of later complication, without mention of misadventure at the time of the procedure
CPT/HCPCS: 36416; 82948; 99215; A6223; A6446

== ENCOUNTER 2018-02-01 07:59 | Emergency (ER) | payer MEDICAID ==
[~2018-02-01] VITALS: Ht 175.3 cm; Wt 79.5 kg
[~2018-02-01 07:59] MED LIST changes: +CEPH500C5 PO; +HYDR-4353 PO; -HYDR-565 PO
[2018-02-01] MEDS ORDERED: sodium bicarbonate (8.4%) 1 mEq/ml syringe ONE (09:00)
[2018-02-01] MEDS ORDERED: epiNEPHrine 0.1mg/ml 10ml syringe ONE (09:00)
[2018-02-01] MEDS ORDERED: calcium chloride 100 MG/1 ML inj IV ONE (09:00)
== END 2018-02-01 14:09 | disposition expired ==
LOC: ER 08:00
DX: S30.1XXA Contusion of abdominal wall, initial encounter (principal); I46.9 Cardiac arrest, cause unspecified; M25.18 Fistula, other specified site; R60.0 Localized edema; I13.2 Hypertensive heart and chronic kidney disease with heart failure and with stage 5 chronic kidney disease, or end stage renal disease; E11.22 Type 2 diabetes mellitus with diabetic chronic kidney disease; N18.6 End stage renal disease; I50.9 Heart failure, unspecified; G89.29 Other chronic pain; Z99.2 Dependence on renal dialysis; Z88.6 Allergy status to analgesic agent; Z88.8 Allergy status to other drugs, medicaments and biological substances; Z79.899 Other long term (current) drug therapy; Z79.82 Long term (current) use of aspirin; Z79.2 Long term (current) use of antibiotics; Z79.4 Long term (current) use of insulin; Z90.49 Acquired absence of other specified parts of digestive tract; Z90.710 Acquired absence of both cervix and uterus; Z87.440 Personal history of urinary (tract) infections; X58.XXXA Exposure to other specified factors, initial encounter; Y93.89 Activity, other specified; Y92.89 Other specified places as the place of occurrence of the external cause; Y99.8 Other external cause status
CPT/HCPCS: 99285; J0171